=== PATIENT | female | born 1950 | race Caucasian/White ===

== ENCOUNTER 2017-08-28 23:58 | Emergency (ER) | payer MEDICARE, MEDICAID ==
[2017-08-29] MEDS ORDERED: traMADol 50 MG Tab PO ONE (00:14)
--- NOTE | 2017-08-29 00:16 | EDM.PDOC ---
ED HPI GENERAL MEDICAL PROBLEM - General Chief Complaint: Lower Extremity Injury/Pain Stated Complaint: RT LEG PAIN Time Seen by Provider: 08/29/17 00:00 Source of Information: Reports: Patient, Family History Limitations: Reports: No Limitations - History of Present Illness INITIAL COMMENTS - FREE TEXT/NARRATIVE: 66 y.o.w.f with multiple medical issues, came to the ed due to pain, swelling of her left knee and lower leg. Pt denied trauma, fever and chills. However, she has severe pain at her left lower leg. No N/V/D or dizziness. Pt feel the pain is worse at her left ant knee when she tries to extend her left knee. She had her left knee replaced 2005. Pt denied any other acute medical issues. BP 205/70 pulse 73 RR 18 Pulse ox 97% temp 46.7 Onset Date: 08/27/17 Onset Time: 07:00 Duration: Day(s):, Getting Worse Location: Reports: Lower Extremity, Left Quality: Reports: Burning, Dull, Same as Previous Episode Severity: Moderate Improves with: Reports: Rest Context: Reports: Other (H/O cellulitis) Associated Symptoms: Reports: No Other Symptoms Right Lower Leg Pain Score (Numeric/FACES): 9 - Related Data Allergies Allergy/AdvReac Type Severity Reaction Status Date / Time adhesive Allergy Severe Hives Verified 08/29/17 00:08 diclofenac sodium Allergy Severe Hives Verified 08/29/17 00:08 [From Voltaren] morphine Allergy Severe Hives Verified 08/29/17 00:08 Penicillins Allergy Severe Hives Verified 08/29/17 00:08 latex Allergy Unknown UNKNOWN Verified 08/29/17 00:08 Home Meds: Home Meds Allopurinol [Zyloprim] 150 mg PO DAILY 05/09/13 [History] Cholecalciferol (Vitamin D3) [Vitamin D3] 1,000 unit PO 1800 05/09/13 [History] Clopidogrel [Plavix] 75 mg PO 1800 05/09/13 [History] Insulin Detemir [Levemir Flexpen] 42 unit SQ BEDTIME 05/09/13 [History] metFORMIN [Glucophage] 1,000 mg PO 10,18 05/09/13 [History] Nitroglycerin [Nitrostat] 0.4 mg PO ASDIRECTED PRN 01/10/15 [History] Rivaroxaban [Xarelto] 20 mg PO 1800 01/10/15 [History] Ezetimibe [Zetia] 10 mg PO 1800 01/11/15 [History] atorvaSTATin [Lipitor] 40 mg PO 1000 01/11/15 [History] Multivitamin [Daily Multiple Vitamin] 1 tab PO DAILY 02/24/15 [History] Ferrous Sulfate 325 mg PO BIDMEALS 06/14/15 [History] Sertraline [Zoloft] 50 mg BEDTIME 06/14/15 [History] Acetaminophen/HYDROcodone [[place] 325-7.5 MG] 1 tab PO BID PRN #30 tablet [Rx] Amiodarone [Cordarone] 100 mg PO DAILY #90 tablet 01/30/16 [Rx] Ascorbic Acid [Vitamin C] 500 mg PO BID tablet 01/30/16 [Rx] Benazepril [Lotensin] 40 mg PO BID #60 tablet 01/30/16 [Rx] Cefadroxil [Duricef] 500 mg PO BID #60 cap 01/30/16 [Rx] Insulin Aspart [NovoLOG] 12 unit SUBCUT TIDMEALS pen 01/30/16 [Rx] Methadone 2.5 mg PO BEDTIME #30 tablet 01/30/16 [Rx] Metoprolol Succinate [Toprol XL] 75 mg PO DAILY #60 tab.er 01/30/16 [Rx] Cephalexin [Keflex] 500 mg PO Q6H #40 cap 08/29/17 [Rx] traMADol [Ultram] 50 mg PO Q4H PRN #20 tab 08/29/17 [Rx] Past Medical History Cardiovascular History: Reports: Afib, Blood Clots/VTE/DVT, CAD, Cardiomyopathy , Heart Failure, Heart Murmur, High Cholesterol, Hypertension, NC, PTCA, SOB on Exertion, Stents Other Cardiovascular History: Electrocardioversion 05/26/14 and 07/05/14 Respiratory History: Reports: Other (See Below) Other Respiratory History: severe restrictive lung disease-11/19/15 with FVC 1.46L, 42% predicted. FEV1 1.16L, 45% predicted. Ratio 82. Genitourinary History: Reports: Renal Disease Musculoskeletal History: Reports: Arthritis, Back Pain, Chronic, Gout, Other ( See Below) Other Musculoskeletal History: Arthritis in hands & knees. Is hoping to have R knee replaced this year. Psychiatric History: Reports: Anxiety, Depression Endocrine/Metabolic History: Reports: Diabetes, Type II, IDDM, Obesity/BMI 30+ Hematologic History: Reports: Anticoagulation Therapy, Blood Transfusion(s), Iron Deficiency Oncologic (Cancer) History: Reports: Leukemia, Non-Hodgkin's Lymphoma Dermatologic History: Reports: Cellulitis, Other (See Below) Other Dermatologic History: has ecchymotic area inner aspect L lower leg - Infectious Disease History Infectious Disease History: Reports: Chicken Pox, Measles, Mumps - Past Surgical History HEENT Surgical History: Reports: Tonsillectomy Cardiovascular Surgical History: Reports: Coronary Artery Stent, Percutaneous Transluminal Angioplasty GI Surgical History: Reports: Colonoscopy Musculoskeletal Surgical History: Reports: Knee Replacement Oncologic Surgical History: Reports: Bone Marrow Aspiration Social & Family History - Family History Cardiac: Reports: Other (See Below) Other Cardiac Family History: heart problems - Tobacco Use Smoking Status *Q: Former Smoker Years of Tobacco use: 2 Packs/Tins Daily: 0.5 Used Tobacco, but Quit: Yes Month/Year Tobacco Last Used: January Second Hand Smoke Exposure: No - Recreational Drug Use Recreational Drug Use: No - Living Situation & Occupation Living situation: Reports: , Alone Occupation: Disabled Review of Systems - Review of Systems Review Of Systems: See Below Constitutional: Reports: No Symptoms Eyes: Reports: No Symptoms Ears: Reports: No Symptoms Nose: Reports: No Symptoms Mouth/Throat: Reports: No Symptoms Respiratory: Reports: No Symptoms Cardiovascular: Reports: No Symptoms GI/Abdominal: Reports: No Symptoms Genitourinary: Reports: No Symptoms Musculoskeletal: Reports: Joint Pain (left knee/lower leg), Muscle Pain Skin: Reports: Erythema Neurological: Reports: No Symptoms Psychiatric: Reports: No Symptoms ED EXAM, GENERAL - Physical Exam Exam: See Below Exam Limited By: No Limitations General Appearance: Alert, WD/WN, Mild Distress, Obese (morbid ) Eye Exam: Bilateral Eye: Normal Inspection Ears: Normal External Exam Ear Exam: Bilateral Ear: Auricle Normal Nose: Normal Inspection, Normal Mucosa Throat/Mouth: Normal Inspection, Normal Lips Head: Atraumatic, Normocephalic Neck: Normal Inspection, Supple, Non-Tender Respiratory/Chest: No Respiratory Distress, Lungs Clear, Normal Breath Sounds, Chest Non-Tender Cardiovascular: Normal Peripheral Pulses, Regular Rate, Rhythm, No Edema Peripheral Pulses: 1+: Brachial (R) GI/Abdominal: Normal Bowel Sounds (Female) Exam: Deferred Rectal (Female) Exam: Deferred Back Exam: Normal Inspection, Full Range of Motion Extremities: Pedal Edema, Joint Swelling, Ivanna's Sign, Leg Pain (left lower leg ), Increased Warmth Neurological: Alert, Oriented, CN II-XII Intact, Normal Cognition, Abnormal Gait (in the wheel chair) Psychiatric: Normal Affect, Normal Mood Skin Exam: Warm, Dry, Intact Lymphatic: No Adenopathy Course - Vital Signs Text/Narrative:: 66 y.o.w.f with multiple medical issues, came to the ed due to pain, swelling of her left knee and lower leg. Pt denied trauma, fever and chills. However, she has severe pain at her left lower leg. No N/V/D or dizziness. Pt feel the pain is worse at her left ant knee when she tries to extend her left knee. She had her left knee replaced 2005. Pt denied any other acute medical issues. BP 205/70 pulse 73 RR 18 Pulse ox 97% temp 46.7 PE: 66 y.o.w.f with HTN and left knee/leg pain and swelling imaging: US: neg for DVT, pos for cellulitis XRay left knee: Now acute change Labs: WBC Nl Na K nl Lactic acid 2.0 Impression: Left knee pain; left leg cellulitis, poss left left leg lymphedema Tx: Ice, Ultram, Keflex Reexam: improved Plan: D/C with instructions Last Recorded V/S: Last Vital Signs Temp 36.4 C 08/29/17 00:22 Pulse 65 08/29/17 02:35 Resp 18 08/29/17 00:22 BP 188/65 H 08/29/17 02:35 Pulse Ox 98 08/29/17 00:22 - Orders/Labs/Meds Orders: Active Orders 24 hr Category Date Time Status Knee 1V or 2V Lt [CR] Stat Exams 08/29/17 00:12 Taken VL Duplex Lwr Ext Veins Ltd Lt [US] Stat Exams 08/29/17 00:12 Taken CULTURE BLOOD [BC] Urgent Lab 08/29/17 01:45 Received CULTURE BLOOD [BC] Urgent Lab 08/29/17 01:52 Received Blood Culture x2 Reflex Set [OM.PC] Urgent Oth 08/29/17 01:38 Ordered Labs: Laboratory Tests 08/29/17 08/29/17 08/29/17 Range/Units 01:45 01:45 01:45 WBC 8.7 (4.5-12.0) X10-3/uL RBC 5.06 (3.23-5.20) x10(6)uL Hgb 12.6 (11.5-15.5) g/dL Hct 40.1 (30.0-51.3) % MCV 79.3 L (80-96) fL MCH 25.0 L (27.7-33.6) pg MCHC 31.5 L (32.2-35.4) g/dL RDW 15.0 (11.5-15.5) % Plt Count 336 (125-369) X10(3)uL MPV 7.8 (7.4-10.4) fL Add Manual Diff Yes Neutrophils % (Manual) 70 (46-82) % Lymphocytes % (Manual) 14 (13-37) % Monocytes % (Manual) 10 (4-12) % Eosinophils % (Manual) 5 (0-5) % Basophils % (Manual) 1 (0-2) % Sodium 141 (135-145) mmol/L Potassium 3.8 (3.5-5.3) mmol/L Chloride 103 (100-110) mmol/L Carbon Dioxide 28 (21-32) mmol/L BUN 10 (7-18) mg/dL Creatinine 0.8 (0.55-1.02) mg/dL Est Cr Clr Drug Dosing 59.73 mL/min Estimated GFR (MDRD) > 60 (>60) BUN/Creatinine Ratio 12.5 (9-20) Glucose 191 H (80-116) mg/dL Lactic Acid 2.0 (0.4-2.2) mmol/L Calcium 9.1 (8.6-10.2) mg/dL Meds: Medications Discontinued Medications Generic Name Dose Route Start Last Admin Trade Name Dutchq PRN Reason Stop Dose Admin Cephalexin 500 mg 08/29/17 02:21 08/29/17 02:27 Keflex PO 08/29/17 02:22 500 mg ONETIME ONE Administration Clonidine HCl 0.1 mg 08/29/17 01:42 08/29/17 01:45 Catapres PO 08/29/17 01:43 0.1 mg ONETIME ONE Administration Tramadol HCl 100 mg 08/29/17 00:14 08/29/17 01:29 Ultram PO 08/29/17 00:15 100 mg ONETIME ONE Administration Departure - Departure Time of Disposition: 02:22 Disposition: Home, Self-Care 01 Condition: Good Clinical Impression: Cellulitis Qualifiers: Site of cellulitis of extremity: lower extremity Laterality: left - Discharge Information Prescriptions: Cephalexin [Keflex] 500 mg PO Q6H #40 cap traMADol [Ultram] 50 mg PO Q4H PRN #20 tab PRN Reason: severe pain Referrals: Gianni Bowen MD [Primary Care Provider] - Forms: ED Department Discharge Additional Instructions: rest, ice and elevation, Keflex as recommended, please f/u with your PMD in 2 days, please come back to the ed if your symptoms get worse acutely. - My Orders Last 24 Hours: My Active Orders 08/29/17 00:12 Knee 1V or 2V Lt [CR] Stat VL Duplex Lwr Ext Veins Ltd Lt [US] Stat 08/29/17 01:38 Blood Culture x2 Reflex Set [OM.PC] Urgent 08/29/17 01:45 CULTURE BLOOD [BC] Urgent 08/29/17 01:52 CULTURE BLOOD [BC] Urgent - Assessment/Plan Last 24 Hours: My Active Orders 08/29/17 00:12 Knee 1V or 2V Lt [CR] Stat VL Duplex Lwr Ext Veins Ltd Lt [US] Stat 08/29/17 01:38 Blood Culture x2 Reflex Set [OM.PC] Urgent 08/29/17 01:45 CULTURE BLOOD [BC] Urgent 08/29/17 01:52 CULTURE BLOOD [BC] Urgent
[2017-08-29] MEDS ORDERED: cloNIDine 0.1 MG Tab PO ONE (01:42)
[2017-08-29] MEDS ORDERED: Cephalexin 500 MG Cap PO ONE (02:21)
[2017-08-29 02:36] VITALS: BP 188/65
--- NOTE | 2017-08-31 09:28 | CR ---
INDICATION: Left knee pain. LEFT KNEE: Three images of the left knee in frontal and lateral projections revealed evidence of a total knee arthroplasty, which appears to be in good position and alignment, without a definite complicating process. No acute bone or joint abnormality was identified. Incidentally noted were calcifications in the arteries posteriorly. MTDD
--- NOTE | 2017-08-31 10:36 | US ---
INDICATION: Swelling left calf, question DVT. DUPLEX ULTRASOUND, LEFT LOWER EXTREMITY VEINS: Utilizing 2-D real time, duplex Doppler spectral analysis, and color flow imaging, examination of the left lower extremity veins revealed no evidence of deep venous thrombosis or obstruction. Compression views showed no abnormal lack of compression to suggest thrombosis. The patient was unable to cooperate for valvular competence evaluation. Examination was difficult due to patient body habitus and a degree of swelling. Interstitial edema is noted at the level of the calf and popliteal fossa. The anterior tibial vein was visualized in the proximal portion of the calf only. Greater saphenous vein was visualized to the knee. IMPRESSION: 1. No evidence of deep venous thrombosis. 2. Valvular competence was not evaluated. 3. Interstitial edema is noted, popliteal through calf area. 4. The study is somewhat limited due to patient body habitus. MTDD
== END 2017-08-29 02:35 | disposition home or self-care (01) ==
LOC: FB.ED 23:58
DX: L03.116 Cellulitis of left lower limb (principal); M25.562 Pain in left knee; I11.0 Hypertensive heart disease with heart failure; I50.9 Heart failure, unspecified; E78.00 Pure hypercholesterolemia, unspecified; F41.9 Anxiety disorder, unspecified; F32.9 Major depressive disorder, single episode, unspecified; E66.9 Obesity, unspecified; E11.9 Type 2 diabetes mellitus without complications; Z87.891 Personal history of nicotine dependence; Z91.048 Other nonmedicinal substance allergy status; Z88.5 Allergy status to narcotic agent; Z91.040 Latex allergy status; Z79.899 Other long term (current) drug therapy; Z79.4 Long term (current) use of insulin
CPT/HCPCS: 36415; 73560-LT; 80048; 83605; 85025; 87040; 93971-LT; 99283; 99284; A9270-GY

== ENCOUNTER 2017-09-02 08:11 | Emergency (ER) | payer MEDICARE, MEDICAID ==
[2017-09-02] MEDS ORDERED: Ketorolac 30 MG/ML SDV IM STA (09:43)
[2017-09-02] MEDS ORDERED: Acetaminophen/oxyCODONE 325-5 MG Tab PO ONE (10:20)
--- NOTE | 2017-09-02 10:57 | EDM.PDOC ---
ED HPI GENERAL MEDICAL PROBLEM - General Chief Complaint: Upper Extremity Injury/Pain Stated Complaint: ARM PAIN HEAD ACHE Time Seen by Provider: 09/02/17 08:11 Source of Information: Reports: Patient, Family History Limitations: Reports: Physical Impairment - History of Present Illness INITIAL COMMENTS - FREE TEXT/NARRATIVE: 66 years old w f came with her daughter in law due to pain in all he joints including neck. Pt lives by herself and has little connection with the outside world. She she bearly gets around by herself and needs a lot of help from her daughter in law, who "can not take it anymore" No other acute medical issues. BP 180/100 Pulse 87 O2 92 % on on RA. Temp 37.1 Onset Date: 08/19/17 Onset Time: 09:00 Duration: Intermittent Location: Reports: Generalized Quality: Reports: Dull Severity: Mild Improves with: Reports: None Worsens with: Reports: None Context: Reports: Other (lives by herself, has nonspecific complains) Treatments DISABILITY LIAISON OFFICER: Reports: Acetaminophen Bilateral Upper Arm Pain Score (Numeric/FACES): 9 - Related Data Allergies Allergy/AdvReac Type Severity Reaction Status Date / Time adhesive Allergy Severe Hives Verified 09/02/17 08:38 diclofenac sodium Allergy Severe Hives Verified 09/02/17 08:38 [From Voltaren] morphine Allergy Severe Hives Verified 09/02/17 08:38 Penicillins Allergy Severe Hives Verified 09/02/17 08:38 latex Allergy Unknown UNKNOWN Verified 09/02/17 08:38 Home Meds: Home Meds Allopurinol [Zyloprim] 150 mg PO DAILY 05/09/13 [History] Cholecalciferol (Vitamin D3) [Vitamin D3] 1,000 unit PO 1800 05/09/13 [History] Clopidogrel [Plavix] 75 mg PO 1800 05/09/13 [History] Insulin Detemir [Levemir Flexpen] 42 unit SQ BEDTIME 05/09/13 [History] metFORMIN [Glucophage] 1,000 mg PO 05/09/13 [History] Nitroglycerin [Nitrostat] 0.4 mg PO ASDIRECTED PRN 01/10/15 [History] Rivaroxaban [Xarelto] 20 mg PO 1800 01/10/15 [History] Ezetimibe [Zetia] 10 mg PO 1800 01/11/15 [History] atorvaSTATin [Lipitor] 40 mg PO 1000 01/11/15 [History] Multivitamin [Daily Multiple Vitamin] 1 tab PO DAILY 02/24/15 [History] Ferrous Sulfate 325 mg PO BIDMEALS 06/14/15 [History] Sertraline [Zoloft] 50 mg BEDTIME 06/14/15 [History] Acetaminophen/HYDROcodone [[place] 325-7.5 MG] 1 tab PO BID PRN #30 tablet [Rx] Amiodarone [Cordarone] 100 mg PO DAILY #90 tablet 01/30/16 [Rx] Ascorbic Acid [Vitamin C] 500 mg PO BID tablet 01/30/16 [Rx] Benazepril [Lotensin] 40 mg PO BID #60 tablet 01/30/16 [Rx] Cefadroxil [Duricef] 500 mg PO BID #60 cap 01/30/16 [Rx] Insulin Aspart [NovoLOG] 12 unit SUBCUT TIDMEALS pen 01/30/16 [Rx] Methadone 2.5 mg PO BEDTIME #30 tablet 01/30/16 [Rx] Metoprolol Succinate [Toprol XL] 75 mg PO DAILY #60 tab.er 01/30/16 [Rx] Cephalexin [Keflex] 500 mg PO Q6H #40 cap 08/29/17 [Rx] traMADol [Ultram] 50 mg PO Q4H PRN #20 tab 08/29/17 [Rx] oxyCODONE HCl/Acetaminophen [Percocet 2.5-325 MG] 1 tab PO Q4H PRN #4 tablet [Rx] oxyCODONE HCl/Acetaminophen [Percocet 5-325 mg Tablet] 1 each PO Q6HR PRN #4 tablet 09/02/17 [Rx] Past Medical History Cardiovascular History: Reports: Afib, Blood Clots/VTE/DVT, CAD, Cardiomyopathy , Heart Failure, Heart Murmur, High Cholesterol, Hypertension, NM, PTCA, SOB on Exertion, Stents Other Cardiovascular History: Electrocardioversion 05/26/14 and 07/05/14 Respiratory History: Reports: Other (See Below) Other Respiratory History: severe restrictive lung disease-11/19/15 with FVC 1.46L, 42% predicted. FEV1 1.16L, 45% predicted. Ratio 82. Genitourinary History: Reports: Renal Disease Musculoskeletal History: Reports: Arthritis, Back Pain, Chronic, Gout, Other ( See Below) Other Musculoskeletal History: Arthritis in hands & knees. Is hoping to have R knee replaced this year. Psychiatric History: Reports: Anxiety, Depression Endocrine/Metabolic History: Reports: Diabetes, Type II, IDDM, Obesity/BMI 30+ Hematologic History: Reports: Anticoagulation Therapy, Blood Transfusion(s), Iron Deficiency Oncologic (Cancer) History: Reports: Leukemia, Non-Hodgkin's Lymphoma Dermatologic History: Reports: Cellulitis, Other (See Below) Other Dermatologic History: has ecchymotic area inner aspect L lower leg - Infectious Disease History Infectious Disease History: Reports: Chicken Pox, Measles, Mumps - Past Surgical History HEENT Surgical History: Reports: Tonsillectomy Cardiovascular Surgical History: Reports: Coronary Artery Stent, Percutaneous Transluminal Angioplasty GI Surgical History: Reports: Colonoscopy Musculoskeletal Surgical History: Reports: Knee Replacement Oncologic Surgical History: Reports: Bone Marrow Aspiration Social & Family History - Family History Cardiac: Reports: Other (See Below) Other Cardiac Family History: heart problems - Tobacco Use Smoking Status *Q: Former Smoker Years of Tobacco use: 2 Packs/Tins Daily: 0.5 Used Tobacco, but Quit: No Month/Year Tobacco Last Used: January Second Hand Smoke Exposure: No - Caffeine Use Caffeine Use: Reports: Coffee - Recreational Drug Use Recreational Drug Use: No - Living Situation & Occupation Living situation: Reports: , Alone Occupation: Disabled Review of Systems - Review of Systems Review Of Systems: Unable To Obtain (poor historian, depressed) ED EXAM, GENERAL - Physical Exam Exam: See Below Exam Limited By: No Limitations General Appearance: Alert, WD/WN, No Apparent Distress Eye Exam: Bilateral Eye: EOMI, Normal Inspection Ears: Normal External Exam, Normal Canal Ear Exam: Bilateral Ear: Auricle Normal Nose: Normal Inspection, Normal Mucosa Throat/Mouth: Normal Inspection, Normal Lips Head: Atraumatic, Normocephalic Neck: Normal Inspection, Supple, Non-Tender Respiratory/Chest: No Respiratory Distress, Lungs Clear, Normal Breath Sounds, No Accessory Muscle Use, Chest Non-Tender Cardiovascular: Normal Peripheral Pulses, Regular Rate, Rhythm, No Edema Peripheral Pulses: 1+: Brachial (L) GI/Abdominal: Normal Bowel Sounds (Female) Exam: Deferred Rectal (Female) Exam: Deferred Back Exam: Normal Inspection, Full Range of Motion Extremities: Normal Inspection, Normal Range of Motion, Other (pt says, all her joints hurt with movement) Neurological: Alert, Oriented, CN II-XII Intact, Normal Cognition, Abnormal Gait (says she can not walk, however, she walked at home as she came to the ed) Psychiatric: Normal Affect Skin Exam: Warm, Dry, Intact, Normal Color, No Rash Lymphatic: No Adenopathy Course - Vital Signs Text/Narrative:: 66 years old w f came with her daughter in law due to pain in all he joints including neck. Pt lives by herself and has little connection with the outside world. She she bearly gets around by herself and needs a lot of help from her daughter in law, who "can not take it anymore" No other acute medical issues. BP 180/100 Pulse 87 O2 92 % on on RA. Temp 37.1 PE: WNWD depressed appearing 69 y.o.w with a nonspecific HPT who did not take her BP meds this morning. Labs WNL, ESR 36 Imaging: Not indicated Impression: Nonspecific medical issues, Lonely/depressed Consultation: box worker: Gave phonenumbers and addresses to f/u Tx: Toradol, Pt will take her BP as soon she gets home 10.23 am Consultation: Dr. Ugarte: Set up HOMEheath with marriage and family social worker, give a few percocet for severe p0ain, f/u with the PMD Reexam: improved, Pain wentto 08/15 Plan: D/C with instructions Last Recorded V/S: Last Vital Signs Temp 36.6 C 09/02/17 08:11 Pulse 72 09/02/17 11:15 Resp 20 09/02/17 08:11 BP 152/58 H 09/02/17 11:15 Pulse Ox 95 09/02/17 11:00 - Orders/Labs/Meds Labs: Laboratory Tests 09/02/17 09/02/17 Range/Units 08:42 08:42 WBC 9.6 (4.5-12.0) X10-3/uL RBC 4.90 (3.23-5.20) x10(6)uL Hgb 12.6 (11.5-15.5) g/dL Hct 39.3 (30.0-51.3) % MCV 80.3 (80-96) fL MCH 25.8 L (27.7-33.6) pg MCHC 32.1 L (32.2-35.4) g/dL RDW 14.8 (11.5-15.5) % Plt Count 337 (125-369) X10(3)uL MPV 7.6 (7.4-10.4) fL Neut % (Auto) 81.6 (46-82) % Lymph % (Auto) 9.5 L (13-37) % [place] % (Auto) 6.3 (4-12) % Eos % (Auto) 1 (1.0-5.0) % Baso % (Auto) 1 (0-2) % Neut # (Auto) 7.9 (1.6-8.3) # Lymph # (Auto) 0.9 (0.6-5.0) # [place] # (Auto) 0.6 (0.0-1.3) # Eos # (Auto) 0.1 (0.0-0.8) # Baso # (Auto) 0.1 (0.0-0.2) # ESR 37 H (0-20) mm/hr Sodium 135 (135-145) mmol/L Potassium 3.5 (3.5-5.3) mmol/L Chloride 97 L D (100-110) mmol/L Carbon Dioxide 30 (21-32) mmol/L BUN 10 (7-18) mg/dL Creatinine 0.7 (0.55-1.02) mg/dL Est Cr Clr Drug Dosing 68.27 mL/min Estimated GFR (MDRD) > 60 (>60) BUN/Creatinine Ratio 14.3 (9-20) Glucose 219 H (80-116) mg/dL Calcium 9.0 (8.6-10.2) mg/dL Meds: Medications Discontinued Medications Generic Name Dose Route Start Last Admin Trade Name Freq PRN Reason Stop Dose Admin Ketorolac Tromethamine 30 mg 09/02/17 09:43 09/02/17 09:54 Toradol IM 09/02/17 09:44 30 mg ONETIME STA Administration Metoprolol Succinate 75 mg 09/02/17 11:10 Toprol Xl PO 09/02/17 11:11 ONETIME STA Oxycodone/Acetaminophen 1 tab 09/02/17 10:20 09/02/17 10:24 Percocet 325-5 Mg PO 09/02/17 10:21 1 tab ONETIME ONE Administration Departure - Departure Time of Disposition: 10:53 Disposition: Home, Self-Care 01 Condition: Good Clinical Impression: Generalized joint pain - Discharge Information Prescriptions: oxyCODONE HCl/Acetaminophen [Percocet 5-325 mg Tablet] 1 each PO Q6HR PRN #4 tablet PRN Reason: for severe pain only oxyCODONE HCl/Acetaminophen [Percocet 2.5-325 MG] 1 tab PO Q4H PRN #4 tablet PRN Reason: severe pain only Referrals: Gianni Bowen MD [Primary Care Provider] - Forms: ED Department Discharge Additional Instructions: Please take your current meds, please follow the instructions given by the marriage and family social worker. Please f/u with your PMD as well, came back to the ED if your symptoms get worse acutely
[2017-09-02] MEDS ORDERED: Metoprolol Succinate 100 MG Tab.ER PO STA (11:03)
[2017-09-02] MEDS ORDERED: Metoprolol Succinate 25 MG Tab.ER PO STA (11:10)
[2017-09-02 12:19] VITALS: BP 152/58
== END 2017-09-02 11:45 | disposition home or self-care (01) ==
LOC: FB.ED 08:11
DX: M79.622 Pain in left upper arm (principal); M79.621 Pain in right upper arm; F32.9 Major depressive disorder, single episode, unspecified; I11.0 Hypertensive heart disease with heart failure; I50.9 Heart failure, unspecified; E78.00 Pure hypercholesterolemia, unspecified; E11.9 Type 2 diabetes mellitus without complications; Z91.048 Other nonmedicinal substance allergy status; Z88.5 Allergy status to narcotic agent; Z88.0 Allergy status to penicillin; Z91.040 Latex allergy status; Z88.8 Allergy status to other drugs, medicaments and biological substances; Z79.899 Other long term (current) drug therapy; Z79.4 Long term (current) use of insulin; Z87.891 Personal history of nicotine dependence
CPT/HCPCS: 36415; 80048; 85025; 85651; 96372; 99283; A9270; J1885

== ENCOUNTER 2017-11-20 14:02 | Inpatient (IN) | payer MEDICARE, MEDICAID ==
[2017-11-20] MEDS ORDERED: Sodium Chloride 0.9% 1,000 ML IV SCH (14:30)
--- NOTE | 2017-11-20 14:38 | EDM.PDOC ---
ED HPI GENERAL MEDICAL PROBLEM - General Chief Complaint: Cardiovascular Problem Stated Complaint: CHEST PAIN Time Seen by Provider: 11/20/17 14:15 Source of Information: Reports: Patient History Limitations: Reports: No Limitations - History of Present Illness INITIAL COMMENTS - FREE TEXT/NARRATIVE: Jennifer comes into [facility] with a 5 day hx of precordial chest pains, some dyspnea with wheezing, and issues with elevated BP over the past month. Pain is precordial, with radiation into the arms. Activity that involved walking stooping or bending typically precipitated sxs, which would subside with rest in several minutes. The SOB seems to be gradually progressive, without cough or sputa. Her Type II DM on insulin has been well controlled. Her AF is chronic. - Related Data Allergies Allergy/AdvReac Type Severity Reaction Status Date / Time adhesive Allergy Severe Hives Verified 11/20/17 15:37 diclofenac sodium Allergy Severe Hives Verified 11/20/17 15:37 [From Voltaren] morphine Allergy Severe Hives Verified 11/20/17 15:37 Penicillins Allergy Severe Hives Verified 11/20/17 15:37 latex Allergy Unknown UNKNOWN Verified 11/20/17 15:37 Home Meds: Home Meds Allopurinol [Zyloprim] 150 mg PO DAILY 05/09/13 [History] Cholecalciferol (Vitamin D3) [Vitamin D3] 1,000 unit PO 1800 05/09/13 [History] Clopidogrel [Plavix] 75 mg PO 1800 05/09/13 [History] Insulin Detemir [Levemir Flexpen] 42 unit SQ BEDTIME 05/09/13 [History] metFORMIN [Glucophage] 1,000 mg PO 05/09/13 [History] Nitroglycerin [Nitrostat] 0.4 mg PO ASDIRECTED PRN 01/10/15 [History] Rivaroxaban [Xarelto] 20 mg PO 1800 01/10/15 [History] Ezetimibe [Zetia] 10 mg PO 1800 01/11/15 [History] atorvaSTATin [Lipitor] 40 mg PO 1000 01/11/15 [History] Multivitamin [Daily Multiple Vitamin] 1 tab PO DAILY 02/24/15 [History] Ferrous Sulfate 325 mg PO BIDMEALS 06/14/15 [History] Sertraline [Zoloft] 50 mg BEDTIME 01/07/16 [History] Acetaminophen/HYDROcodone [[place] 325-7.5 MG] 1 tab PO BID PRN #30 tablet [Rx] Amiodarone [Cordarone] 100 mg PO DAILY #90 tablet 01/30/16 [Rx] Ascorbic Acid [Vitamin C] 500 mg PO BID tablet 01/30/16 [Rx] Benazepril [Lotensin] 40 mg PO BID #60 tablet 01/30/16 [Rx] Cefadroxil [Duricef] 500 mg PO BID #60 cap 01/30/16 [Rx] Insulin Aspart [NovoLOG] 12 unit SUBCUT TIDMEALS pen 01/30/16 [Rx] Methadone 2.5 mg PO BEDTIME #30 tablet 01/30/16 [Rx] Metoprolol Succinate [Toprol XL] 75 mg PO DAILY #60 tab.er 01/30/16 [Rx] Cephalexin [Keflex] 500 mg PO Q6H #40 cap 08/29/17 [Rx] traMADol [Ultram] 50 mg PO Q4H PRN #20 tab 08/29/17 [Rx] oxyCODONE HCl/Acetaminophen [Percocet 2.5-325 MG] 1 tab PO Q4H PRN #4 tablet [Rx] oxyCODONE HCl/Acetaminophen [Percocet 5-325 mg Tablet] 1 each PO Q6HR PRN #4 tablet 09/02/17 [Rx] Past Medical History Cardiovascular History: Reports: Afib, Blood Clots/VTE/DVT, CAD, Cardiomyopathy , Heart Failure, Heart Murmur, High Cholesterol, Hypertension, [place], PTCA, SOB on Exertion, Stents Other Cardiovascular History: Electrocardioversion 05/26/14 and 07/05/14 Respiratory History: Reports: Other (See Below) Other Respiratory History: severe restrictive lung disease-11/19/15 with FVC 1.46L, 42% predicted. FEV1 1.16L, 45% predicted. Ratio 82. Genitourinary History: Reports: Renal Disease Musculoskeletal History: Reports: Arthritis, Back Pain, Chronic, Gout, Other ( See Below) Other Musculoskeletal History: Arthritis in hands & knees. Is hoping to have R knee replaced this year. Psychiatric History: Reports: Anxiety, Depression Endocrine/Metabolic History: Reports: Diabetes, Type II, IDDM, Obesity/BMI 30+ Hematologic History: Reports: Anticoagulation Therapy, Blood Transfusion(s), Iron Deficiency Oncologic (Cancer) History: Reports: Leukemia, Non-Hodgkin's Lymphoma Dermatologic History: Reports: Cellulitis, Other (See Below) Other Dermatologic History: has ecchymotic area inner aspect L lower leg - Infectious Disease History Infectious Disease History: Reports: Chicken Pox, Measles, Mumps - Past Surgical History HEENT Surgical History: Reports: Tonsillectomy Cardiovascular Surgical History: Reports: Coronary Artery Stent, Percutaneous Transluminal Angioplasty GI Surgical History: Reports: Colonoscopy Musculoskeletal Surgical History: Reports: Knee Replacement Oncologic Surgical History: Reports: Bone Marrow Aspiration Social & Family History - Family History Cardiac: Reports: Other (See Below) Other Cardiac Family History: heart problems - Caffeine Use Caffeine Use: Reports: Coffee - Living Situation & Occupation Living situation: Reports: , Alone Occupation: Disabled ED ROS GENERAL - Review of Systems Review Of Systems: See Below Constitutional: Reports: Malaise, Fatigue HEENT: Reports: No Symptoms Respiratory: Reports: Shortness of Breath, Wheezing Cardiovascular: Reports: Chest Pain, Blood Pressure Problem, Dyspnea on Exertion , Edema GI/Abdominal: Reports: No Symptoms : Reports: No Symptoms Musculoskeletal: Reports: No Symptoms Skin: Reports: No Symptoms Neurological: Reports: No Symptoms Psychiatric: Reports: No Symptoms Hematologic/Lymphatic: Reports: No Symptoms Immunologic: Reports: No Symptoms ED EXAM, GENERAL - Physical Exam Exam: See Below Exam Limited By: No Limitations General Appearance: Alert, WD/WN, Mild Distress, Obese Eye Exam: Bilateral Eye: EOMI, Normal Inspection, PERRL Ears: Normal External Exam Nose: Normal Inspection Throat/Mouth: Normal Inspection, Normal Oropharynx Head: Normocephalic Neck: Normal Inspection, Supple Respiratory/Chest: Chest Non-Tender, Decreased Breath Sounds, Wheezing, Prolonged Expiration Cardiovascular: No Murmur, Irregularly Irregular GI/Abdominal: Normal Bowel Sounds, Soft, Non-Tender, No Organomegaly, No Distention, No Mass (Female) Exam: Deferred Rectal (Female) Exam: Deferred Back Exam: Normal Inspection Extremities: Normal Range of Motion, Pedal Edema Neurological: Alert, Oriented, CN II-XII Intact, No Motor/Sensory Deficits Psychiatric: Normal Affect, Normal Mood Skin Exam: Warm, Dry, Intact, Normal Color Lymphatic: No Adenopathy Course - Vital Signs Text/Narrative:: Following assessment at the [facility], a 12 lead ekg noted AF with normal VR. Admission BP 178/98, VR 88, RR 22 T 98 deg F. An Iv was inserted into the LUE, and a Tridil drip was started for BP and chest pain management. Subsequent studies noted chest x ray with cardiomegaly and bilateral interstitial fluid consistent with CHF. CBC and CMP were baseline, Troponin I <0.017, BNP 2281. Case was discussed with hospitalist, and she will be admitted to the ICU. Last Recorded V/S: Last Vital Signs Temp Pulse Resp BP 182/83 H 11/20/17 15:01 Pulse Ox - Orders/Labs/Meds Orders: Active Orders 24 hr Category Date Time Status Patient Status Manage Transfer [TRANSFER] Routine ADT 11/20/17 15:48 Ordered EKG Documentation Completion [RC] ASDIRECTED Care 11/20/17 14:26 Active Nitroglycerin/D5W [Nitroglycerin 25 MG/D5W 250 ML] Med 11/20/17 14:30 Active 25 mg in 250 ml IV TITRATE Sodium Chloride 0.9% [Normal Saline] 1,000 ml Med 11/20/17 14:30 Active IV ASDIRECTED Sodium Chloride 0.9% [Saline Flush] Med 11/20/17 14:25 Active 10 ml FLUSH ASDIRECTED PRN Peripheral IV Insertion Adult [OM.PC] Routine Oth 11/20/17 14:25 Ordered EKG 12 Lead [EK] Routine Ther 11/20/17 14:25 Ordered Medication Orders Nitroglycerin/Dextrose (Nitroglycerin 25 Mg/D5w 250 Ml) 25 mg in 250 mls @ 6 mls/hr IV TITRATE ALAN; Protocol Last Titration: 11/20/17 15:40 Dose: 10 mcg/min, 6 mls/hr Admin: 11/20/17 15:01 Dose: 5 mcg/min, 3 mls/hr Sodium Chloride (Normal Saline) 1,000 mls @ 75 mls/hr IV ASDIRECTED ALAN Last Infusion: 11/20/17 15:41 Dose: 35 mls/hr Admin: 11/20/17 15:26 Dose: 75 mls/hr Sodium Chloride (Saline Flush) 10 ml FLUSH ASDIRECTED PRN PRN Reason: Keep Vein Open Last Admin: 11/20/17 15:25 Dose: 10 ml Labs: Laboratory Tests 11/20/17 11/20/17 11/20/17 Range/Units 14:45 14:45 14:45 WBC 7.3 (4.5-12.0) X10-3/uL RBC 4.53 (3.23-5.20) x10(6)uL Hgb 11.7 (11.5-15.5) g/dL Hct 36.9 (30.0-51.3) % MCV 81.3 (80-96) fL MCH 25.9 L (27.7-33.6) pg MCHC 31.9 L (32.2-35.4) g/dL RDW 16.2 H (11.5-15.5) % Plt Count 271 (125-369) X10(3)uL MPV 7.7 (7.4-10.4) fL Neut % (Auto) 78.0 (46-82) % Lymph % (Auto) 12.6 L (13-37) % [place] % (Auto) 4.6 (4-12) % Eos % (Auto) 4 (1.0-5.0) % Baso % (Auto) 1 (0-2) % Neut # (Auto) 5.7 (1.6-8.3) # Lymph # (Auto) 0.9 (0.6-5.0) # [place] # (Auto) 0.3 (0.0-1.3) # Eos # (Auto) 0.3 (0.0-0.8) # Baso # (Auto) 0.1 (0.0-0.2) # Sodium 141 (135-145) mmol/L Potassium 4.2 (3.5-5.3) mmol/L Chloride 103 D (100-110) mmol/L Carbon Dioxide 27 (21-32) mmol/L BUN 10 (7-18) mg/dL Creatinine 0.8 (0.55-1.02) mg/dL Est Cr Clr Drug Dosing TNP Estimated GFR (MDRD) > 60 (>60) BUN/Creatinine Ratio 12.5 (9-20) Glucose 139 H D (80-116) mg/dL Calcium 9.1 (8.6-10.2) mg/dL Total Bilirubin 0.6 (0.1-1.3) mg/dL AST 18 (5-25) IU/L ALT 23 (12-36) U/L Alkaline Phosphatase 104 (56-112) IU/L Troponin I < 0.017 L (<0.017-0.056) ng/mL NT-Pro-B Natriuret Pep (<=125) pg/mL Total Protein 7.4 (6.0-8.0) g/dL Albumin 3.9 (3.2-4.6) g/dL Globulin 3.5 g/dL Albumin/Globulin Ratio 1.1 / Range/Units 14:45 WBC (4.5-12.0) X10-3/uL RBC (3.23-5.20) x10(6)uL Hgb (11.5-15.5) g/dL Hct (30.0-51.3) % MCV (80-96) fL MCH (27.7-33.6) pg MCHC (32.2-35.4) g/dL RDW (11.5-15.5) % Plt Count (125-369) X10(3)uL MPV (7.4-10.4) fL Neut % (Auto) (46-82) % Lymph % (Auto) (13-37) % [place] % (Auto) (4-12) % Eos % (Auto) (1.0-5.0) % Baso % (Auto) (0-2) % Neut # (Auto) (1.6-8.3) # Lymph # (Auto) (0.6-5.0) # [place]ws[place] # (Auto) (0.0-1.3) # Eos # (Auto) (0.0-0.8) # Baso # (Auto) (0.0-0.2) # Sodium (135-145) mmol/L Potassium (3.5-5.3) mmol/L Chloride (100-110) mmol/L Carbon Dioxide (21-32) mmol/L BUN (7-18) mg/dL Creatinine (0.55-1.02) mg/dL Est Cr Clr Drug Dosing Estimated GFR (MDRD) (>60) BUN/Creatinine Ratio (9-20) Glucose (80-116) mg/dL Calcium (8.6-10.2) mg/dL Total Bilirubin (0.1-1.3) mg/dL AST (5-25) IU/L ALT (12-36) U/L Alkaline Phosphatase (56-112) IU/L Troponin I (<0.017-0.056) ng/mL NT-Pro-B Natriuret Pep 2281 H* (<=125) pg/mL Total Protein (6.0-8.0) g/dL Albumin (3.2-4.6) g/dL Globulin g/dL Albumin/Globulin Ratio Meds: Medications Generic Name Dose Route Start Last Admin Trade Name Freq PRN Reason Stop Dose Admin Nitroglycerin/Dextrose 25 mg in 250 mls @ 6 mls/hr 11/20/17 14:30 11/20/17 15 :40 Nitroglycerin 25 Mg/D5w 250 Ml IV 10 mcg/min TITRATE ALAN 6 mls/hr Titration Protocol 10 MCG/MIN Sodium Chloride 1,000 mls @ 75 mls/hr 11/20/17 14:30 11/20/17 15:41 Normal Saline IV 35 mls/hr ASDIRECTED ALAN Infusion Sodium Chloride 10 ml 11/20/17 14:25 11/20/17 15:25 Saline Flush FLUSH 10 ml ASDIRECTED PRN Administration Keep Vein Open Discontinued Medications Generic Name Dose Route Start Last Admin Trade Name Freq PRN Reason Stop Dose Admin Furosemide 40 mg 11/20/17 15:38 Lasix IVPUSH 11/20/17 15:39 NOW ONE Departure - Departure Time of Disposition: 15:54 Disposition: Admitted As Inpatient 66 Condition: Fair Clinical Impression: Hypertension with heart disease Acute exacerbation of CHF (congestive heart failure) Qualifiers: Heart failure type: systolic Qualified Code(s): I50.23 - Acute on chronic systolic (congestive) heart failure Referrals: Jeremiah Rincon MD [Primary Care Provider] - Forms: ED Department Discharge - Problem List & Annotations (1) Acute exacerbation of CHF (congestive heart failure) SNOMED Code(s): 70049800 Code(s): I50.9 - HEART FAILURE, UNSPECIFIED Status: Acute Priority: High Current Visit: Yes Annotation/Comment:: Admit to ICU Qualifiers: Heart failure type: systolic Qualified Code(s): I50.23 - Acute on chronic systolic (congestive) heart failure (2) Hypertension with heart disease SNOMED Code(s): 91042483 Code(s): I11.9 - HYPERTENSIVE HEART DISEASE WITHOUT HEART FAILURE Status: Acute Current Visit: Yes Annotation/Comment:: Admit to ICU - Problem List Review Problem List Initiated/Reviewed/Updated: Yes - My Orders Last 24 Hours: My Active Orders 11/20/17 14:25 Sodium Chloride 0.9% [Saline Flush] 10 ml FLUSH ASDIRECTED PRN Peripheral IV Insertion Adult [OM.PC] Routine EKG 12 Lead [EK] Routine 11/20/17 14:26 EKG Documentation Completion [RC] ASDIRECTED 11/20/17 14:30 Nitroglycerin/D5W [Nitroglycerin 25 MG/D5W 250 ML] 25 mg in 250 ml IV TITRATE Sodium Chloride 0.9% [Normal Saline] 1,000 ml IV ASDIRECTED 11/20/17 15:48 Patient Status Manage Transfer [TRANSFER] Routine - Assessment/Plan Last 24 Hours: My Active Orders 11/20/17 14:25 Sodium Chloride 0.9% [Saline Flush] 10 ml FLUSH ASDIRECTED PRN Peripheral IV Insertion Adult [OM.PC] Routine EKG 12 Lead [EK] Routine 11/20/17 14:26 EKG Documentation Completion [RC] ASDIRECTED 11/20/17 14:30 Nitroglycerin/D5W [Nitroglycerin 25 MG/D5W 250 ML] 25 mg in 250 ml IV TITRATE Sodium Chloride 0.9% [Normal Saline] 1,000 ml IV ASDIRECTED 11/20/17 15:48 Patient Status Manage Transfer [TRANSFER] Routine Plan: Follow up with hospitalist.
--- NOTE | 2017-11-20 15:00 | CR ---
INDICATION: Chest pain, short of breath. CHEST: A portable AP upright view of the chest was obtained 11/20/2017 and compared with 01/28/2016 and 02/24/2015. The heart is enlarged. The aorta is tortuous. Pulmonary vasculature is prominent, compatible with CHF. Interstitial markings are prominent, suggesting interstitial lung edema. A definite active infiltrate or effusion was not identified. Overlying EKG leads are noted. The aorta is tortuous and calcified in the arch area. IMPRESSION: ASHD with cardiomegaly, CHF, and interstitial lung edema. MTDD
[2017-11-20] MEDS: Nitroglycerin/D5W 25 MG/250 ML BOTTLE IV SCH (15:01)
[2017-11-20] MEDS: Sodium Chloride 0.9% 10 ML Syringe FLUSH PRN ×3 (15:25→21:25)
[2017-11-20] MEDS ORDERED: Furosemide 40 MG/4 ML VIAL IVPUSH ONE ×2 (15:38→19:56)
[2017-11-20] MEDS ORDERED: Furosemide 40 MG/4 ML VIAL ONE (15:52)
--- NOTE | 2017-11-20 20:07 | PCM.HP ---
H&P History of Present Illness - General Date of Service: 11/20/17 Admit Problem/Dx: Admission Diagnosis/Problem Admission Diagnosis/Problem Congestive heart failure Source of Information: Patient History Limitations: Reports: No Limitations - History of Present Illness Initial Comments - Free Text/Narative: Jennifer is a 66-year-old female was admitted because of shortness of breath sudden onset. She also complained of retrosternal chest pain that radiated randomly to the chest area and arms. The symptoms progressively got worse today, and it is associated with edema of the legs. She has a history of hypertension that has been difficult to control the last month, Losartan was added and doubled up but did not improve her symptoms. She has no headache. She has a history of chronic intermittent afib, on new anticoagulants, coronary artery disease with stents in 2015. She had an echocardiogram in October of this year that showed mild aortic stenosis and mild diastolic dysfunction. This report will be in the hard copy of the chart. She has no fever or systemic symptoms. Has well-controlled type 2 diabetes ,recent A1c 7.7. She also has a history of chronic cellulitis of left lower extremity, currently on oral antibiotics. She noted more redness on that leg yesterday mid chest radiating to both arms Pain Score (Numeric/FACES): 0 - Related Data Allergies/Adverse Reactions: Allergies Allergy/AdvReac Type Severity Reaction Status Date / Time adhesive Allergy Severe Hives Verified 11/20/17 15:37 diclofenac sodium Allergy Severe Hives Verified 11/20/17 15:37 [From Voltaren] morphine Allergy Severe Hives Verified 11/20/17 15:37 Penicillins Allergy Severe Hives Verified 11/20/17 15:37 latex Allergy Unknown UNKNOWN Verified 11/20/17 15:37 Home Medications: Home Meds Allopurinol [Zyloprim] 150 mg PO DAILY 05/09/13 [History] Cholecalciferol (Vitamin D3) [Vitamin D3] 1,000 unit PO 1800 05/09/13 [History] Insulin Detemir [Levemir Flexpen] 42 unit SQ BEDTIME 05/09/13 [History] metFORMIN [Glucophage] 1,000 mg PO 10,18 05/09/13 [History] Nitroglycerin [Nitrostat] 0.4 mg PO ASDIRECTED PRN 01/10/15 [History] Rivaroxaban [Xarelto] 20 mg PO 1800 01/10/15 [History] Ezetimibe [Zetia] 10 mg PO 1800 01/11/15 [History] atorvaSTATin [Lipitor] 40 mg PO 1000 01/11/15 [History] Multivitamin [Daily Multiple Vitamin] 1 tab PO DAILY 02/24/15 [History] Ferrous Sulfate 325 mg PO BIDMEALS 06/14/15 [History] Sertraline [Zoloft] 50 mg PO BEDTIME 06/14/15 [History] Cefadroxil [Duricef] 500 mg PO BID #60 cap 01/30/16 [Rx] Insulin Aspart [NovoLOG] 12 unit SUBCUT TIDMEALS pen 01/30/16 [Rx] Amiodarone HCl [Pacerone] 100 mg PO DAILY 11/20/17 [History] Losartan [Cozaar] 50 mg PO DAILY 11/20/17 [History] Metoprolol Succinate [Toprol XL 50mg] 75 mg PO DAILY 11/20/17 [History] Past Medical History HEENT History: Reports: Impaired Vision Cardiovascular History: Reports: Afib, CAD, Cardiomyopathy, Heart Failure, Heart Murmur, High Cholesterol, Hypertension, [place], PTCA, SOB on Exertion, Stents Other Cardiovascular History: Electrocardioversion 05/26/14 and 07/05/14 Respiratory History: Reports: Other (See Below) Other Respiratory History: severe restrictive lung disease-11/19/15 with FVC 1.46L, 42% predicted. FEV1 1.16L, 45% predicted. Ratio 82. Genitourinary History: Reports: Renal Disease Musculoskeletal History: Reports: Arthritis, Back Pain, Chronic, Gout, Other ( See Below) Other Musculoskeletal History: Arthritis in hands & knees. Is hoping to have R knee replaced this year. Psychiatric History: Reports: Anxiety, Depression Endocrine/Metabolic History: Reports: Diabetes, Type II, IDDM, Obesity/BMI 30+ Hematologic History: Reports: Anticoagulation Therapy, Blood Transfusion(s), Iron Deficiency Oncologic (Cancer) History: Reports: Leukemia, Non-Hodgkin's Lymphoma Dermatologic History: Reports: Cellulitis, Other (See Below) Other Dermatologic History: has ecchymotic area inner aspect L lower leg - Infectious Disease History Infectious Disease History: Reports: Chicken Pox, Measles, Mumps - Past Surgical History HEENT Surgical History: Reports: Tonsillectomy Cardiovascular Surgical History: Reports: Coronary Artery Stent, Percutaneous Transluminal Angioplasty Musculoskeletal Surgical History: Reports: Knee Replacement Oncologic Surgical History: Reports: Bone Marrow Aspiration Other Oncologic Surgeries/Procedures: in remission since 2009 (leukemia), NonHodgkin's lymphoma 30 years ago Social & Family History - Family History Cardiac: Reports: Other (See Below) Other Cardiac Family History: heart problems - Tobacco Use Smoking Status *Q: Never Smoker Second Hand Smoke Exposure: No - Caffeine Use Caffeine Use: Reports: Coffee - Recreational Drug Use Recreational Drug Use: No - Living Situation & Occupation Living situation: Reports: , Alone Occupation: Disabled H&P Review of Systems - Review of Systems: Review Of Systems: ROS reveals no pertinent complaints other than HPI. Exam - Exam Exam: See Below - Vital Signs Vital Signs: Last Vital Signs Temp 97.8 F 11/20/17 17:10 Pulse 83 11/20/17 16:50 Resp 24 H 11/20/17 19:30 BP 139/65 11/20/17 19:30 Pulse Ox 93 L 11/20/17 19:30 Weight: 116.743 kg - Exam Quality Assessment: Supplemental Oxygen General: Moderate Distress HEENT: PERRLA Neck: Supple Lungs: Rales, Rhonchi Cardiovascular: Regular Rhythm, Normal S1, Normal S2. No: Irregular Rhythm, Diastolic Murmur GI/Abdominal Exam: Normal Bowel Sounds, Soft, Non-Tender (Female) Exam: Deferred Rectal (Female) Exam: Deferred Back Exam: Normal Inspection Extremities: Pedal Edema, Increased Warmth (Left), Redness Skin: Warm, Dry, Intact Neurological: Cranial Nerves Intact, Reflexes Equal Bilateral Neuro Extensive - Mental Status: Alert, Oriented x3, Normal Mood/Affect, Normal Cognition Neuro Extensive - Motor, Sensory, Reflexes: CN II-XII Intact, Normal Gait, Normal Reflexes Psychiatric: Alert, Normal Affect, Normal Mood - Patient Data Lab Results Last 24 hrs: Laboratory Results - last 24 hr 11/20/17 11/20/17 11/20/17 Range/Units 14:45 14:45 14:45 WBC 7.3 (4.5-12.0) X10-3/uL RBC 4.53 (3.23-5.20) x10(6)uL Hgb 11.7 (11.5-15.5) g/dL Hct 36.9 (30.0-51.3) % MCV 81.3 (80-96) fL MCH 25.9 L (27.7-33.6) pg MCHC 31.9 L (32.2-35.4) g/dL RDW 16.2 H (11.5-15.5) % Plt Count 271 (125-369) X10(3)uL MPV 7.7 (7.4-10.4) fL Neut % (Auto) 78.0 (46-82) % Lymph % (Auto) 12.6 L (13-37) % [place] % (Auto) 4.6 (4-12) % Eos % (Auto) 4 (1.0-5.0) % Baso % (Auto) 1 (0-2) % Neut # (Auto) 5.7 (1.6-8.3) # Lymph # (Auto) 0.9 (0.6-5.0) # [place] # (Auto) 0.3 (0.0-1.3) # Eos # (Auto) 0.3 (0.0-0.8) # Baso # (Auto) 0.1 (0.0-0.2) # Sodium 141 (135-145) mmol/L Potassium 4.2 (3.5-5.3) mmol/L Chloride 103 D (100-110) mmol/L Carbon Dioxide 27 (21-32) mmol/L BUN 10 (7-18) mg/dL Creatinine 0.8 (0.55-1.02) mg/dL Est Cr Clr Drug Dosing TNP Estimated GFR (MDRD) > 60 (>60) BUN/Creatinine Ratio 12.5 (9-20) Glucose 139 H D (80-116) mg/dL Calcium 9.1 (8.6-10.2) mg/dL Total Bilirubin 0.6 (0.1-1.3) mg/dL AST 18 (5-25) IU/L ALT 23 (12-36) U/L Alkaline Phosphatase 104 (56-112) IU/L Troponin I < 0.017 L (<0.017-0.056) ng/mL NT-Pro-B Natriuret Pep (<=125) pg/mL Total Protein 7.4 (6.0-8.0) g/dL Albumin 3.9 (3.2-4.6) g/dL Globulin 3.5 g/dL Albumin/Globulin Ratio 1.1 / Range/Units 14:45 WBC (4.5-12.0) X10-3/uL RBC (3.23-5.20) x10(6)uL Hgb (11.5-15.5) g/dL Hct (30.0-51.3) % MCV (80-96) fL MCH (27.7-33.6) pg MCHC (32.2-35.4) g/dL RDW (11.5-15.5) % Plt Count (125-369) X10(3)uL MPV (7.4-10.4) fL Neut % (Auto) (46-82) % Lymph % (Auto) (13-37) % [place] % (Auto) (4-12) % Eos % (Auto) (1.0-5.0) % Baso % (Auto) (0-2) % Neut # (Auto) (1.6-8.3) # Lymph # (Auto) (0.6-5.0) # [place] # (Auto) (0.0-1.3) # Eos # (Auto) (0.0-0.8) # Baso # (Auto) (0.0-0.2) # Sodium (135-145) mmol/L Potassium (3.5-5.3) mmol/L Chloride (100-110) mmol/L Carbon Dioxide (21-32) mmol/L BUN (7-18) mg/dL Creatinine (0.55-1.02) mg/dL Est Cr Clr Drug Dosing Estimated GFR (MDRD) (>60) BUN/Creatinine Ratio (9-20) Glucose (80-116) mg/dL Calcium (8.6-10.2) mg/dL Total Bilirubin (0.1-1.3) mg/dL AST (5-25) IU/L ALT (12-36) U/L Alkaline Phosphatase (56-112) IU/L Troponin I (<0.017-0.056) ng/mL NT-Pro-B Natriuret Pep 2281 H* (<=125) pg/mL Total Protein (6.0-8.0) g/dL Albumin (3.2-4.6) g/dL Globulin g/dL Albumin/Globulin Ratio Result Diagrams: 11/20/17 14:45 11/20/17 14:45 Imaging Impressions Last 24 hrs: CXR-chf EKG INTERPRETATION Rhythm: A-Fib - Problem List (1) Acute exacerbation of CHF (congestive heart failure) SNOMED Code(s): 22177121 ICD Code: I50.9 - HEART FAILURE, UNSPECIFIED Status: Acute Priority: High Current Visit: Yes Problem Details: Admit to ICU Qualifiers: Heart failure type: diastolic Qualified Code(s): I50.33 - Acute on chronic diastolic (congestive) heart failure (2) Cellulitis SNOMED Code(s): 166791136 ICD Code: L03.90 - CELLULITIS, UNSPECIFIED Status: Acute Current Visit: No Qualifiers: Site of cellulitis: extremity Site of cellulitis of extremity: lower extremity Laterality: left Qualified Code(s): L03.116 - Cellulitis of left lower limb (3) 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, NYHA class 2 SNOMED Code(s): 01915940, 796096005, 994620917 ICD Code: I10 - ESSENTIAL (PRIMARY) HYPERTENSION; I50.40 - UNSP COMBINED SYSTOLIC AND DIASTOLIC (CONGESTIVE) HRT FAIL Status: Acute Current Visit: No (4) Afib SNOMED Code(s): 63168735 ICD Code: I48.91 - UNSPECIFIED ATRIAL FIBRILLATION Status: Chronic Current Visit: No Problem Details: Stable,on anticoagulation Qualifiers: Atrial fibrillation type: paroxysmal Qualified Code(s): I48.0 - Paroxysmal atrial fibrillation (5) Anxiety SNOMED Code(s): 35493969 ICD Code: F41.9 - ANXIETY DISORDER, UNSPECIFIED Status: Chronic Current Visit: No Problem Details: (6) CAD, multiple vessel SNOMED Code(s): 928940057 ICD Code: I25.10 - ATHSCL HEART DISEASE OF [place] CORONARY ARTERY W/O ANG PCTRS Status: Chronic Current Visit: No (7) Hyperlipidemia associated with type 2 diabetes mellitus SNOMED Code(s): 849837847366, 318652828144 ICD Code: E11.69 - TYPE 2 DIABETES MELLITUS WITH OTHER SPECIFIED COMPLICATION ; E78.5 - HYPERLIPIDEMIA, UNSPECIFIED Status: Chronic Current Visit: No (8) Morbid obesity with BMI of 40.0-44.9, adult SNOMED Code(s): 785227801 ICD Code: E66.01 - MORBID (SEVERE) OBESITY DUE TO EXCESS CALORIES; Z68.41 - BODY MASS INDEX (BMI) 40.0-44.9, ADULT Status: Chronic Current Visit: No Problem List Initiated/Reviewed/Updated: Yes Orders Last 24hrs: Active Orders 24 hr Category Date Time Status Accu Check [Blood Glucose Check, Bedside] [RC] 07,1130, Care 11/20/17 19:05 Active 1730 Consistent Carbohydrate Diet [DIET] Diet 11/21/17 Breakfast Active BASIC METABOLIC PANEL,BMP [CHEM] DAILY Lab 11/21/17 05:11 Ordered BASIC METABOLIC PANEL,BMP [CHEM] DAILY Lab 11/22/17 05:11 Ordered BASIC METABOLIC PANEL,BMP [CHEM] DAILY Lab 11/23/17 05:11 Ordered CBC WITH AUTO DIFF [HEME] AM Lab 11/21/17 05:11 Ordered PRO B-TYPE NATRIUR PEPT,BNPPRO [CHEM] DAILY Lab 11/21/17 05:11 Ordered PRO B-TYPE NATRIUR PEPT,BNPPRO [CHEM] DAILY Lab 11/22/17 05:11 Ordered PRO B-TYPE NATRIUR PEPT,BNPPRO [CHEM] DAILY Lab 11/23/17 05:11 Ordered TROPONIN I [CHEM] AM Lab 11/21/17 05:11 Ordered Amiodarone [Cordarone] Med 11/21/17 09:00 Ordered 100 mg PO DAILY Ezetimibe [Zetia] Med 11/21/17 18:00 Ordered 10 mg PO 1800 Furosemide [Lasix] Med 11/20/17 19:56 Once 40 mg IVPUSH NOW ONE Insulin Aspart [NovoLOG] Med 11/21/17 08:00 Ordered See Protocol SUBCUT TIDMEALS Insulin Detemir [Levemir] Med 11/20/17 21:00 Ordered 42 unit SUBCUT BEDTIME Metoprolol Succinate [Toprol XL] Med 11/20/17 20:15 Ordered 100 mg PO DAILY Multivitamins [Tab-A-Driss] Med 11/21/17 09:00 Ordered 1 tab PO DAILY Nitroglycerin/D5W [Nitroglycerin 25 MG/D5W 250 ML] Med 11/20/17 14:30 Active 25 mg in 250 ml IV TITRATE Rivaroxaban [Xarelto] Med 11/21/17 18:00 Ordered 20 mg PO 1800 Sertraline [Zoloft] Med 11/20/17 21:00 Ordered 50 mg PO BEDTIME Sodium Chloride 0.9% [Normal Saline] 1,000 ml Med 11/20/17 14:30 Active IV ASDIRECTED Sodium Chloride 0.9% [Saline Flush] Med 11/20/17 14:25 Active 10 ml FLUSH ASDIRECTED PRN atorvaSTATin [Lipitor] Med 11/21/17 10:00 Ordered 40 mg PO 1000 cefTRIAXone [Rocephin] Med 11/20/17 20:00 Ordered 1,000 mg IVPUSH Q24H metFORMIN [Glucophage] Med 11/21/17 10:00 Ordered 1,000 mg PO 10,18 Peripheral IV Insertion Adult [OM.PC] Routine Oth 11/20/17 14:25 Ordered EKG 12 Lead [EK] Routine Ther 11/20/17 14:25 Ordered Medication Orders Amiodarone HCl (Cordarone) 100 mg PO DAILY ALAN Atorvastatin Calcium (Lipitor) 40 mg PO 1000 ALAN Ceftriaxone Sodium (Rocephin) 1,000 mg IVPUSH Q24H ALAN Ezetimibe (Zetia) 10 mg PO 1800 ALAN Furosemide (Lasix) 40 mg IVPUSH NOW ONE Stop: 11/20/17 19:57 Nitroglycerin/Dextrose (Nitroglycerin 25 Mg/D5w 250 Ml) 25 mg in 250 mls @ 6 mls/hr IV TITRATE ALAN; Protocol Last Titration: 11/20/17 19:45 Dose: 15 mcg/min, 9 mls/hr Titration: 11/20/17 16:30 Dose: 20 mcg/min, 12 mls/hr Titration: 11/20/17 16:10 Dose: 15 mcg/min, 9 mls/hr Titration: 11/20/17 15:40 Dose: 10 mcg/min, 6 mls/hr Admin: 11/20/17 15:01 Dose: 5 mcg/min, 3 mls/hr Sodium Chloride (Normal Saline) 1,000 mls @ 75 mls/hr IV ASDIRECTED ALAN Last Infusion: 11/20/17 15:41 Dose: 35 mls/hr Infusion: 11/20/17 15:41 Dose: 35 mls/hr Admin: 11/20/17 15:26 Dose: 75 mls/hr Insulin Aspart (Novolog) 0 unit SUBCUT TIDMEALS [facility]; Protocol Insulin Detemir (Levemir) 42 unit SUBCUT BEDTIME [facility] Metformin HCl (Glucophage) 1,000 mg PO 10,18 [facility] Metoprolol Succinate (Toprol Xl) 100 mg PO DAILY [facility] Multivitamins/Minerals/Vitamin C (Tab-A-Driss) 1 tab PO DAILY [facility] Non-Formulary Medication (Rivaroxaban [Xarelto]) 20 mg PO 1800 [facility] Sertraline HCl (Zoloft) 50 mg PO BEDTIME [facility] Sodium Chloride (Saline Flush) 10 ml FLUSH ASDIRECTED PRN PRN Reason: Keep Vein Open Last Admin: 11/20/17 15:25 Dose: 10 ml Assessment/Plan Comment:: Admit patient to ICU, with diagnosis of CHF exacerbation and acute pulmonary edema. I agree with continuation of nitroglycerin drip and Lasix which I'll order 40 mg once tonight. I will repeat an EKG,troponin BNP and basic profile in morning. I opted to start Rocephin 1 g every day for cellulitis of left lower extremity. I resumed her home medications, but increase the dose of metoprolol 100 mg from 75 mg. I discontinued Losartan because of reported side effects but patient.
[2017-11-20] MEDS: cefTRIAXone 1,000 MG VIAL IVPUSH SCH (21:19)
[2017-11-20] MEDS: Metoprolol Succinate 100 MG Tab.ER PO SCH (21:41)
[2017-11-20] MEDS: Sertraline 50 MG Tab PO SCH (21:41)
[2017-11-20] MEDS: Insulin Detemir 100 Units/ML 3 ML Pen SUBCUT SCH (23:42)
--- NOTE | 2017-11-21 08:56 | PCM.PN ---
- General Info Date of Service: 11/21/17 Admission Dx/Problem (Free Text): Admission Diagnosis/Problem Admission Diagnosis/Problem Congestive heart failure Subjective Update: Jennifer feels better this morning but still short of breath and still needs oxygenation. She complains of some itching,at the back of left leg. Denies chest pain nausea, vomiting. She put out over 2L the last 12 hours - Review of Systems General: Reports: No Symptoms HEENT: Reports: No Symptoms Pulmonary: Reports: Shortness of Breath. Denies: Pleuritic Chest Pain Cardiovascular: Denies: Chest Pain Gastrointestinal: Reports: No Symptoms Genitourinary: Reports: No Symptoms - Patient Data Vitals - Most Recent: Last Vital Signs Temp 98.9 F 11/21/17 00:00 Pulse 71 11/21/17 06:00 Resp 20 11/21/17 06:00 BP 134/65 11/21/17 06:00 Pulse Ox 93 L 11/21/17 06:00 Weight - Most Recent: 115.354 kg I&O - Last 24 Hours: Intake & Output 11/20/17 11/21/17 11/21/17 22:59 06:59 14:59 Intake Total 255 324 Output Total 4850 400 Balance -2495 -76 Lab Results Last 24 Hours: Laboratory Results - last 24 hr 11/20/17 11/20/17 11/20/17 Range/Units 14:45 14:45 14:45 WBC 7.3 (4.5-12.0) X10-3/uL RBC 4.53 (3.23-5.20) x10(6)uL Hgb 11.7 (11.5-15.5) g/dL Hct 36.9 (30.0-51.3) % MCV 81.3 (80-96) fL MCH 25.9 L (27.7-33.6) pg MCHC 31.9 L (32.2-35.4) g/dL RDW 16.2 H (11.5-15.5) % Plt Count 271 (125-369) X10(3)uL MPV 7.7 (7.4-10.4) fL Neut % (Auto) 78.0 (46-82) % Lymph % (Auto) 12.6 L (13-37) % [place] % (Auto) 4.6 (4-12) % Eos % (Auto) 4 (1.0-5.0) % Baso % (Auto) 1 (0-2) % Neut # (Auto) 5.7 (1.6-8.3) # Lymph # (Auto) 0.9 (0.6-5.0) # [place] # (Auto) 0.3 (0.0-1.3) # Eos # (Auto) 0.3 (0.0-0.8) # Baso # (Auto) 0.1 (0.0-0.2) # Sodium 141 (135-145) mmol/L Potassium 4.2 (3.5-5.3) mmol/L Chloride 103 D (100-110) mmol/L Carbon Dioxide 27 (21-32) mmol/L BUN 10 (7-18) mg/dL Creatinine 0.8 (0.55-1.02) mg/dL Est Cr Clr Drug Dosing TNP Estimated GFR (MDRD) > 60 (>60) BUN/Creatinine Ratio 12.5 (9-20) Glucose 139 H D (80-116) mg/dL POC Glucose (80-116) mg/dL Calcium 9.1 (8.6-10.2) mg/dL Total Bilirubin 0.6 (0.1-1.3) mg/dL AST 18 (5-25) IU/L ALT 23 (12-36) U/L Alkaline Phosphatase 104 (56-112) IU/L Troponin I < 0.017 L (<0.017-0.056) ng/mL NT-Pro-B Natriuret Pep (<=125) pg/mL Total Protein 7.4 (6.0-8.0) g/dL Albumin 3.9 (3.2-4.6) g/dL Globulin 3.5 g/dL Albumin/Globulin Ratio 1.1 11/20/17 11/20/17 11/21/17 Range/Units 14:45 21:45 05:50 WBC 7.6 (4.5-12.0) X10-3/uL RBC 4.23 (3.23-5.20) x10(6)uL Hgb 11.1 L (11.5-15.5) g/dL Hct 34.1 (30.0-51.3) % MCV 80.7 (80-96) fL MCH 26.2 L (27.7-33.6) pg MCHC 32.4 (32.2-35.4) g/dL RDW 16.5 H (11.5-15.5) % Plt Count 277 (125-369) X10(3)uL MPV 7.9 (7.4-10.4) fL Neut % (Auto) 71.3 (46-82) % Lymph % (Auto) 17.7 (13-37) % [place] % (Auto) 6.6 (4-12) % Eos % (Auto) 4 (1.0-5.0) % Baso % (Auto) 1 (0-2) % Neut # (Auto) 5.4 (1.6-8.3) # Lymph # (Auto) 1.3 (0.6-5.0) # [place] # (Auto) 0.5 (0.0-1.3) # Eos # (Auto) 0.3 (0.0-0.8) # Baso # (Auto) 0.1 (0.0-0.2) # Sodium (135-145) mmol/L Potassium (3.5-5.3) mmol/L Chloride (100-110) mmol/L Carbon Dioxide (21-32) mmol/L BUN (7-18) mg/dL Creatinine (0.55-1.02) mg/dL Est Cr Clr Drug Dosing Estimated GFR (MDRD) (>60) BUN/Creatinine Ratio (9-20) Glucose (80-116) mg/dL POC Glucose 207 H (80-116) mg/dL Calcium (8.6-10.2) mg/dL Total Bilirubin (0.1-1.3) mg/dL AST (5-25) IU/L ALT (12-36) U/L Alkaline Phosphatase (56-112) IU/L Troponin I (<0.017-0.056) ng/mL NT-Pro-B Natriuret Pep 2281 H* (<=125) pg/mL Total Protein (6.0-8.0) g/dL Albumin (3.2-4.6) g/dL Globulin g/dL Albumin/Globulin Ratio 11/21/17 11/21/17 Range/Units 05:50 05:50 WBC (4.5-12.0) X10-3/uL RBC (3.23-5.20) x10(6)uL Hgb (11.5-15.5) g/dL Hct (30.0-51.3) % MCV (80-96) fL MCH (27.7-33.6) pg MCHC (32.2-35.4) g/dL RDW (11.5-15.5) % Plt Count (125-369) X10(3)uL MPV (7.4-10.4) fL Neut % (Auto) (46-82) % Lymph % (Auto) (13-37) % [place] % (Auto) (4-12) % Eos % (Auto) (1.0-5.0) % Baso % (Auto) (0-2) % Neut # (Auto) (1.6-8.3) # Lymph # (Auto) (0.6-5.0) # [place]y # (Auto) (0.0-1.3) # Eos # (Auto) (0.0-0.8) # Baso # (Auto) (0.0-0.2) # Sodium 141 (135-145) mmol/L Potassium 3.5 (3.5-5.3) mmol/L Chloride 101 (100-110) mmol/L Carbon Dioxide 34 H (21-32) mmol/L BUN 10 (7-18) mg/dL Creatinine 0.8 (0.55-1.02) mg/dL Est Cr Clr Drug Dosing 59.73 Estimated GFR (MDRD) > 60 (>60) BUN/Creatinine Ratio 12.5 (9-20) Glucose 138 H (80-116) mg/dL POC Glucose (80-116) mg/dL Calcium 8.8 (8.6-10.2) mg/dL Total Bilirubin (0.1-1.3) mg/dL AST (5-25) IU/L ALT (12-36) U/L Alkaline Phosphatase (56-112) IU/L Troponin I < 0.017 L (<0.017-0.056) ng/mL NT-Pro-B Natriuret Pep 2395 H* (<=125) pg/mL Total Protein (6.0-8.0) g/dL Albumin (3.2-4.6) g/dL Globulin g/dL Albumin/Globulin Ratio Med Orders - Current: Current Medications Amiodarone HCl (Cordarone) 100 mg PO DAILY [facility] Atorvastatin Calcium (Lipitor) 40 mg PO DAILY@1000 [facility] Ceftriaxone Sodium (Rocephin) 1,000 mg IVPUSH Q24H [facility] Last Admin: 11/20/17 21:19 Dose: 1,000 mg Ezetimibe (Zetia) 10 mg PO DAILY@1800 [facility] Furosemide (Lasix) 40 mg IVPUSH BID [facility] Nitroglycerin/Dextrose (Nitroglycerin 25 Mg/D5w 250 Ml) 25 mg in 250 mls @ 6 mls/hr IV TITRATE [facility]; Protocol Last Titration: 11/21/17 01:15 Dose: 10 mcg/min, 6 mls/hr Sodium Chloride (Normal Saline) 1,000 mls @ 75 mls/hr IV ASDIRECTED [facility] Last Infusion: 11/20/17 15:41 Dose: 35 mls/hr Insulin Aspart (Novolog) 0 unit SUBCUT TIDMEALS [facility]; Protocol Insulin Detemir (Levemir) 42 unit SUBCUT BEDTIME [facility] Last Admin: 11/20/17 23:42 Dose: 42 units Metformin HCl (Glucophage) 1,000 mg PO BID@1000,1800 [facility] Metoprolol Succinate (Toprol Xl) 100 mg PO DAILY [facility] Last Admin: 11/20/17 21:41 Dose: 100 mg Multivitamins/Minerals/Vitamin C (Tab-A-Driss) 1 tab PO DAILY [facility] Rivaroxaban (Xarelto) 20 mg PO WITHDINNER [facility] Sertraline HCl (Zoloft) 50 mg PO BEDTIME [facility] Last Admin: 11/20/17 21:41 Dose: 50 mg Sodium Chloride (Saline Flush) 10 ml FLUSH ASDIRECTED PRN PRN Reason: Keep Vein Open Last Admin: 11/20/17 21:25 Dose: 10 ml Discontinued Medications Furosemide (Lasix) 40 mg IVPUSH NOW ONE Stop: 11/20/17 15:39 Last Admin: 11/20/17 15:54 Dose: 40 mg Furosemide (Lasix) Confirm Administered Dose 40 mg .ROUTE .STK-MED ONE Stop: 11/20/17 15:53 Last Admin: 11/20/17 16:36 Dose: Not Given Furosemide (Lasix) 40 mg IVPUSH NOW ONE Stop: 11/20/17 19:57 Last Admin: 11/20/17 21:13 Dose: 40 mg - Exam Quality Assessment: Supplemental Oxygen General: Alert, Oriented HEENT: Pupils Equal Neck: Supple Lungs: Crackles, Rales Cardiovascular: Irregular Rhythm. No: Murmurs Back Exam: Normal Inspection Extremities: Normal Inspection, Increased Warmth, Redness. No: Pedal Edema - Problem List & Annotations (1) Acute exacerbation of CHF (congestive heart failure) SNOMED Code(s): 54459217 Code(s): I50.9 - HEART FAILURE, UNSPECIFIED Status: Acute Priority: High Current Visit: Yes Qualifiers: Heart failure type: diastolic Qualified Code(s): I50.33 - Acute on chronic diastolic (congestive) heart failure Annotation/Comment:: Admit to ICU (2) Cellulitis SNOMED Code(s): 027305468 Code(s): L03.90 - CELLULITIS, UNSPECIFIED Status: Acute Current Visit: No Qualifiers: Site of cellulitis: extremity Site of cellulitis of extremity: lower extremity Laterality: left Qualified Code(s): L03.116 - Cellulitis of left lower limb (3) 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, NYHA class 2 SNOMED Code(s): 25585880, 962220581, 314774184 Code(s): I10 - ESSENTIAL (PRIMARY) HYPERTENSION; I50.40 - UNSP COMBINED SYSTOLIC AND DIASTOLIC (CONGESTIVE) HRT FAIL Status: Acute Current Visit: No (4) Afib SNOMED Code(s): 22004597 Code(s): I48.91 - UNSPECIFIED ATRIAL FIBRILLATION Status: Chronic Current Visit: No Qualifiers: Atrial fibrillation type: paroxysmal Qualified Code(s): I48.0 - Paroxysmal atrial fibrillation Annotation/Comment:: Stable,on anticoagulation (5) Anxiety SNOMED Code(s): 70404078 Code(s): F41.9 - ANXIETY DISORDER, UNSPECIFIED Status: Chronic Current Visit: No Annotation/Comment:: (6) CAD, multiple vessel SNOMED Code(s): 289664255 Code(s): I25.10 - ATHSCL HEART DISEASE OF [place] CORONARY ARTERY W/O ANG PCTRS Status: Chronic Current Visit: No (7) Hyperlipidemia associated with type 2 diabetes mellitus SNOMED Code(s): 605066136417, 765659344644 Code(s): E11.69 - TYPE 2 DIABETES MELLITUS WITH OTHER SPECIFIED COMPLICATION ; E78.5 - HYPERLIPIDEMIA, UNSPECIFIED Status: Chronic Current Visit: No (8) Morbid obesity with BMI of 40.0-44.9, adult SNOMED Code(s): 267601416 Code(s): E66.01 - MORBID (SEVERE) OBESITY DUE TO EXCESS CALORIES; Z68.41 - BODY MASS INDEX (BMI) 40.0-44.9, ADULT Status: Chronic Current Visit: No - Problem List Review Problem List Initiated/Reviewed/Updated: Yes - My Orders Last 24 Hours: My Active Orders 11/20/17 19:05 Accu Check [Blood Glucose Check, Bedside] [RC] 07,1130,1730 11/20/17 20:00 cefTRIAXone [Rocephin] 1,000 mg IVPUSH Q24H 11/20/17 20:15 Metoprolol Succinate [Toprol XL] 100 mg PO DAILY Code Status [Resuscitation Status] Routine 11/20/17 21:00 Insulin Detemir [Levemir] 42 unit SUBCUT BEDTIME Sertraline [Zoloft] 50 mg PO BEDTIME 11/21/17 08:00 Insulin Aspart [NovoLOG] See Protocol SUBCUT TIDMEALS 11/21/17 09:00 Amiodarone [Cordarone] 100 mg PO DAILY Clobetasol [Clobetasol Propionate 0.05%] See Dose Instructions TOP BID Furosemide [Lasix] 40 mg IVPUSH BID Multivitamins [Tab-A-Driss] 1 tab PO DAILY 11/21/17 10:00 atorvaSTATin [Lipitor] 40 mg PO DAILY@1000 metFORMIN [Glucophage] 1,000 mg PO BID@1000,1800 11/21/17 18:00 Ezetimibe [Zetia] 10 mg PO DAILY@1800 Rivaroxaban [Xarelto] 20 mg PO WITHDINNER 11/22/17 05:11 BASIC METABOLIC PANEL,BMP [CHEM] DAILY PRO B-TYPE NATRIUR PEPT,BNPPRO [CHEM] DAILY 11/23/17 05:11 BASIC METABOLIC PANEL,BMP [CHEM] DAILY PRO B-TYPE NATRIUR PEPT,BNPPRO [CHEM] DAILY - Plan Plan:: Continue nitroglycerin drip for now, Lasix 40 mg IV twice a day. I prescribed clobetasol cream to apply to the back of the left neck. Repeat basic profile, BNP in the morning..Perform daily weights
[2017-11-21] MEDS: Insulin Aspart 100 Units/ML 3 ML Pen SUBCUT SCH ×2 (09:47→13:56)
[2017-11-21] MEDS: Clobetasol 0.05% Crm 15 GM Tube TOP SCH ×2 (09:48→20:30)
[2017-11-21] MEDS: Amiodarone 200 MG Tab PO SCH (09:49)
[2017-11-21] MEDS: Multivitamin Tab PO SCH (09:50)
[2017-11-21] MEDS: Furosemide 40 MG/4 ML VIAL IVPUSH SCH ×2 (09:50→15:20)
[2017-11-21] MEDS: atorvaSTATin 40 MG Tab PO SCH (09:51)
[2017-11-21] MEDS: Metoprolol Succinate 100 MG Tab.ER PO SCH (09:51)
[2017-11-21] MEDS: metFORMIN 1,000 MG Tab PO SCH ×2 (09:51→17:50)
[2017-11-21] MEDS: Sodium Chloride 0.9% 10 ML Syringe FLUSH PRN ×4 (10:00→19:48)
[2017-11-21] MEDS ORDERED: Insulin Lispro 100 Unit/ML 3 ML KwikPen SUBCUT SCH (13:15)
[2017-11-21] MEDS: Insulin Lispro 100 Unit/ML 3 ML KwikPen SUBCUT SCH ×2 (13:38→18:26)
[2017-11-21] MEDS ORDERED: Sodium Chloride 0.9% 1,000 ML IV SCH (14:15)
[2017-11-21] MEDS: Nitroglycerin/D5W 25 MG/250 ML BOTTLE IV SCH (15:20)
[2017-11-21] MEDS: Ezetimibe 10 MG Tab PO SCH (17:50)
[2017-11-21] MEDS: Rivaroxaban 10 MG Tab PO SCH (17:50)
[2017-11-21] MEDS: cefTRIAXone 1,000 MG VIAL IVPUSH SCH (19:48)
[2017-11-21] MEDS: Sertraline 50 MG Tab PO SCH (20:33)
[2017-11-21] MEDS: Insulin Detemir 100 Units/ML 3 ML Pen SUBCUT SCH (23:27)
[2017-11-22] MEDS: Acetaminophen 325 MG Tab PO PRN ×4 (03:11→21:58)
--- NOTE | 2017-11-22 08:37 | PCM.PN ---
- General Info Date of Service: 11/22/17 Subjective Update: Jennifer slept well, she has no pain or shortness of breath has improved, even with ambulation. Denies chest pain. Functional Status: Reports: Pain Controlled - Review of Systems Pulmonary: Reports: No Symptoms Cardiovascular: Reports: No Symptoms Gastrointestinal: Reports: No Symptoms - Patient Data Vitals - Most Recent: Last Vital Signs Temp 98.5 F 11/21/17 19:45 Pulse 64 11/22/17 06:00 Resp 17 11/22/17 06:00 BP 137/69 11/22/17 06:00 Pulse Ox 92 L 11/22/17 06:00 Weight - Most Recent: 114.078 kg I&O - Last 24 Hours: Intake & Output 11/21/17 11/22/17 11/22/17 22:59 06:59 14:59 Intake Total 253 284 Output Total 1300 Balance -1047 284 Lab Results Last 24 Hours: Laboratory Results - last 24 hr 11/21/17 11/21/17 11/22/17 Range/Units 12:40 17:54 06:15 Sodium 140 (135-145) mmol/L Potassium 3.5 (3.5-5.3) mmol/L Chloride 99 L (100-110) mmol/L Carbon Dioxide 34 H (21-32) mmol/L BUN 13 (7-18) mg/dL Creatinine 0.8 (0.55-1.02) mg/dL Est Cr Clr Drug Dosing 59.73 mL/min Estimated GFR (MDRD) > 60 (>60) BUN/Creatinine Ratio 16.3 (9-20) Glucose 134 H (80-116) mg/dL POC Glucose 175 H 148 H (80-116) mg/dL Calcium 8.7 (8.6-10.2) mg/dL NT-Pro-B Natriuret Pep (<=125) pg/mL 11/22/17 11/22/17 Range/Units 06:15 06:16 Sodium (135-145) mmol/L Potassium (3.5-5.3) mmol/L Chloride (100-110) mmol/L Carbon Dioxide (21-32) mmol/L BUN (7-18) mg/dL Creatinine (0.55-1.02) mg/dL Est Cr Clr Drug Dosing mL/min Estimated GFR (MDRD) (>60) BUN/Creatinine Ratio (9-20) Glucose (80-116) mg/dL POC Glucose 131 H (80-116) mg/dL Calcium (8.6-10.2) mg/dL NT-Pro-B Natriuret Pep 1654 H* (<=125) pg/mL Med Orders - Current: Current Medications Acetaminophen (Tylenol) 650 mg PO Q4H PRN PRN Reason: pain Last Admin: 11/22/17 03:11 Dose: 650 mg Amiodarone HCl (Cordarone) 100 mg PO DAILY [facility] Last Admin: 11/21/17 09:49 Dose: 100 mg Atorvastatin Calcium (Lipitor) 40 mg PO DAILY@1000 [facility] Last Admin: 11/21/17 09:51 Dose: 40 mg Ceftriaxone Sodium (Rocephin) 1,000 mg IVPUSH Q24H [facility] Last Admin: 11/21/17 19:48 Dose: 1,000 mg Clobetasol Propionate (Clobetasol Propionate 0.05%) 0 gm TOP BID [facility] Last Admin: 11/21/17 20:30 Dose: 1 applic Ezetimibe (Zetia) 10 mg PO DAILY@1800 [facility] Last Admin: 11/21/17 17:50 Dose: 10 mg Furosemide (Lasix) 40 mg IVPUSH BIDDIURETIC [facility] Last Admin: 11/21/17 15:20 Dose: 40 mg Sodium Chloride (Normal Saline) 1,000 mls @ 30 mls/hr IV ASDIRECTED [facility] Last Admin: 11/21/17 15:19 Dose: 30 mls/hr Insulin Detemir (Levemir) 42 unit SUBCUT BEDTIME [facility] Last Admin: 11/21/17 23:27 Dose: 42 units Insulin Human Lispro (Humalog) 0 unit SUBCUT TIDMEALS [facility]; Protocol Last Admin: 11/21/17 18:26 Dose: Not Given Melatonin (Melatonin) 10 mg PO BEDTIME [facility] Last Admin: 11/21/17 23:27 Dose: 10 mg Metformin HCl (Glucophage) 1,000 mg PO BID@1000,1800 [facility] Last Admin: 11/21/17 17:50 Dose: 1,000 mg Metoprolol Succinate (Toprol Xl) 100 mg PO DAILY [facility] Last Admin: 11/21/17 09:51 Dose: 100 mg Multivitamins/Minerals/Vitamin C (Tab-A-Driss) 1 tab PO DAILY [facility] Last Admin: 11/21/17 09:50 Dose: 1 tab Rivaroxaban (Xarelto) 20 mg PO WITHDINNER [facility] Last Admin: 11/21/17 17:50 Dose: 20 mg Sertraline HCl (Zoloft) 50 mg PO BEDTIME [facility] Last Admin: 11/21/17 20:33 Dose: 50 mg Sodium Chloride (Saline Flush) 10 ml FLUSH ASDIRECTED PRN PRN Reason: Keep Vein Open Last Admin: 11/21/17 19:48 Dose: 10 ml Discontinued Medications Furosemide (Lasix) 40 mg IVPUSH NOW ONE Stop: 11/20/17 15:39 Last Admin: 11/20/17 15:54 Dose: 40 mg Furosemide (Lasix) Confirm Administered Dose 40 mg .ROUTE .STK-MED ONE Stop: 11/20/17 15:53 Last Admin: 11/20/17 16:36 Dose: Not Given Furosemide (Lasix) 40 mg IVPUSH NOW ONE Stop: 11/20/17 19:57 Last Admin: 11/20/17 21:13 Dose: 40 mg Nitroglycerin/Dextrose (Nitroglycerin 25 Mg/D5w 250 Ml) 25 mg in 250 mls @ 6 mls/hr IV TITRATE [facility]; Protocol Last Admin: 11/21/17 15:20 Dose: 10 mcg/min, 6 mls/hr Sodium Chloride (Normal Saline) 1,000 mls @ 75 mls/hr IV ASDIRECTED [facility] Last Infusion: 11/20/17 15:41 Dose: 35 mls/hr Insulin Aspart (Novolog) 0 unit SUBCUT TIDMEALS [facility]; Protocol Last Admin: 11/21/17 13:56 Dose: Not Given Insulin Human Lispro (Humalog) 0 unit SUBCUT TIDMEALS [facility]; Protocol - Exam Quality Assessment: Supplemental Oxygen General: Alert, Oriented HEENT: Pupils Equal Neck: Supple Lungs: Clear to Auscultation, Decreased Breath Sounds Cardiovascular: Regular Rate, Regular Rhythm GI/Abdominal Exam: Normal Bowel Sounds, Soft, Non-Tender, No Organomegaly, No Distention, No Abnormal Bruit, No Mass, Pelvis Stable - Problem List & Annotations (1) Acute exacerbation of CHF (congestive heart failure) SNOMED Code(s): 33388906 Code(s): I50.9 - HEART FAILURE, UNSPECIFIED Status: Acute Priority: High Current Visit: Yes Qualifiers: Heart failure type: diastolic Qualified Code(s): I50.33 - Acute on chronic diastolic (congestive) heart failure Annotation/Comment:: Admit to ICU (2) Cellulitis SNOMED Code(s): 501344398 Code(s): L03.90 - CELLULITIS, UNSPECIFIED Status: Acute Current Visit: No Qualifiers: Site of cellulitis: extremity Site of cellulitis of extremity: lower extremity Laterality: left Qualified Code(s): L03.116 - Cellulitis of left lower limb (3) 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, NYHA class 2 SNOMED Code(s): 78183531, 944286897, 842403794 Code(s): I10 - ESSENTIAL (PRIMARY) HYPERTENSION; I50.40 - UNSP COMBINED SYSTOLIC AND DIASTOLIC (CONGESTIVE) HRT FAIL Status: Acute Current Visit: No (4) Afib SNOMED Code(s): 75895989 Code(s): I48.91 - UNSPECIFIED ATRIAL FIBRILLATION Status: Chronic Current Visit: No Qualifiers: Atrial fibrillation type: paroxysmal Qualified Code(s): I48.0 - Paroxysmal atrial fibrillation Annotation/Comment:: Stable,on anticoagulation (5) Anxiety SNOMED Code(s): 71261423 Code(s): F41.9 - ANXIETY DISORDER, UNSPECIFIED Status: Chronic Current Visit: No Annotation/Comment:: (6) CAD, multiple vessel SNOMED Code(s): 355768615 Code(s): I25.10 - ATHSCL HEART DISEASE OF [place] CORONARY ARTERY W/O ANG PCTRS Status: Chronic Current Visit: No (7) Hyperlipidemia associated with type 2 diabetes mellitus SNOMED Code(s): 253350117390, 286896475923 Code(s): E11.69 - TYPE 2 DIABETES MELLITUS WITH OTHER SPECIFIED COMPLICATION ; E78.5 - HYPERLIPIDEMIA, UNSPECIFIED Status: Chronic Current Visit: No (8) Morbid obesity with BMI of 40.0-44.9, adult SNOMED Code(s): 699153864 Code(s): E66.01 - MORBID (SEVERE) OBESITY DUE TO EXCESS CALORIES; Z68.41 - BODY MASS INDEX (BMI) 40.0-44.9, ADULT Status: Chronic Current Visit: No - Problem List Review Problem List Initiated/Reviewed/Updated: Yes - My Orders Last 24 Hours: My Active Orders 11/21/17 09:00 Amiodarone [Cordarone] 100 mg PO DAILY Clobetasol [Clobetasol Propionate 0.05%] See Dose Instructions TOP BID Furosemide [Lasix] 40 mg IVPUSH BIDDIURETIC Multivitamins [Tab-A-Driss] 1 tab PO DAILY 11/21/17 10:00 atorvaSTATin [Lipitor] 40 mg PO DAILY@1000 metFORMIN [Glucophage] 1,000 mg PO BID@1000,1800 11/21/17 11:54 Weight Daily [Height and Weight] [RC] 06 11/21/17 12:00 Insulin Lispro [HumaLOG] 0 unit SUBCUT TIDMEALS 11/21/17 14:15 Sodium Chloride 0.9% [Normal Saline] 1,000 ml IV ASDIRECTED 11/21/17 18:00 Ezetimibe [Zetia] 10 mg PO DAILY@1800 Rivaroxaban [Xarelto] 20 mg PO WITHDINNER 11/21/17 21:00 Melatonin 10 mg PO BEDTIME 11/22/17 02:54 Acetaminophen [Tylenol] 650 mg PO Q4H PRN 11/23/17 05:11 BASIC METABOLIC PANEL,BMP [CHEM] DAILY PRO B-TYPE NATRIUR PEPT,BNPPRO [CHEM] DAILY - Plan Plan:: Wean off O2, and nitroglycerin drip. Continue IV Lasix. Ambulate.
[2017-11-22] MEDS: Furosemide 40 MG/4 ML VIAL IVPUSH SCH ×2 (09:00→15:20)
[2017-11-22] MEDS: Sodium Chloride 0.9% 10 ML Syringe FLUSH PRN ×2 (09:10→20:25)
[2017-11-22] MEDS: Insulin Lispro 100 Unit/ML 3 ML KwikPen SUBCUT SCH ×3 (09:40→18:05)
[2017-11-22] MEDS: Clobetasol 0.05% Crm 15 GM Tube TOP SCH ×2 (09:45→20:33)
[2017-11-22] MEDS: Amiodarone 200 MG Tab PO SCH (09:50)
[2017-11-22] MEDS: metFORMIN 1,000 MG Tab PO SCH ×2 (09:51→18:04)
[2017-11-22] MEDS: Metoprolol Succinate 100 MG Tab.ER PO SCH (09:51)
[2017-11-22] MEDS: Multivitamin Tab PO SCH (09:51)
[2017-11-22] MEDS: atorvaSTATin 40 MG Tab PO SCH (09:51)
[2017-11-22] MEDS: Ezetimibe 10 MG Tab PO SCH (18:04)
[2017-11-22] MEDS: Rivaroxaban 10 MG Tab PO SCH (18:04)
[2017-11-22] MEDS: cefTRIAXone 1,000 MG VIAL IVPUSH SCH (20:31)
[2017-11-22] MEDS: Sertraline 50 MG Tab PO SCH (20:35)
[2017-11-22] MEDS: Insulin Detemir 100 Units/ML 3 ML Pen SUBCUT SCH (21:59)
[2017-11-23] MEDS: Acetaminophen 325 MG Tab PO PRN ×3 (03:40→21:22)
[2017-11-23] MEDS ORDERED: Albuterol/Ipratropium 3.0-0.5 MG/3 ML Neb Soln NEB PRN (08:22)
--- NOTE | 2017-11-23 08:25 | PCM.PN ---
- General Info Date of Service: 11/23/17 Subjective Update: Jennifer has no new complaints today. She still oxygen, but has ambulated well and is out of ICU. She denies chest pain or shortness of breath. - Review of Systems Cardiovascular: Reports: No Symptoms Gastrointestinal: Reports: No Symptoms Genitourinary: Reports: No Symptoms Musculoskeletal: Reports: No Symptoms - Patient Data Vitals - Most Recent: Last Vital Signs Temp 98.9 F 11/22/17 20:27 Pulse 72 11/23/17 03:45 Resp 20 11/23/17 03:45 BP 131/66 11/23/17 03:45 Pulse Ox 93 L 11/23/17 03:45 Weight - Most Recent: 111.856 kg I&O - Last 24 Hours: Intake & Output 11/22/17 11/23/17 11/23/17 22:59 06:59 14:59 Output Total 400 Balance -400 Lab Results Last 24 Hours: Laboratory Results - last 24 hr 11/22/17 11/22/17 11/23/17 Range/Units 13:30 17:54 06:26 Sodium (135-145) mmol/L Potassium (3.5-5.3) mmol/L Chloride (100-110) mmol/L Carbon Dioxide (21-32) mmol/L BUN (7-18) mg/dL Creatinine (0.55-1.02) mg/dL Est Cr Clr Drug Dosing mL/min Estimated GFR (MDRD) (>60) BUN/Creatinine Ratio (9-20) Glucose (80-116) mg/dL POC Glucose 147 H 192 H 123 H (80-116) mg/dL Calcium (8.6-10.2) mg/dL NT-Pro-B Natriuret Pep (<=125) pg/mL 11/23/17 11/23/17 Range/Units 06:40 06:40 Sodium 140 (135-145) mmol/L Potassium 3.6 (3.5-5.3) mmol/L Chloride 99 L (100-110) mmol/L Carbon Dioxide 34 H (21-32) mmol/L BUN 15 (7-18) mg/dL Creatinine 0.8 (0.55-1.02) mg/dL Est Cr Clr Drug Dosing 59.73 mL/min Estimated GFR (MDRD) > 60 (>60) BUN/Creatinine Ratio 18.8 (9-20) Glucose 120 H (80-116) mg/dL POC Glucose (80-116) mg/dL Calcium 9.4 (8.6-10.2) mg/dL NT-Pro-B Natriuret Pep 1311 H* (<=125) pg/mL Med Orders - Current: Current Medications Acetaminophen (Tylenol) 650 mg PO Q4H PRN PRN Reason: pain Last Admin: 11/23/17 03:40 Dose: 650 mg Albuterol/Ipratropium (Duoneb 3.0-0.5 Mg/3 Ml) 3 ml NEB Q6H PRN PRN Reason: Wheezing Amiodarone HCl (Cordarone) 100 mg PO DAILY [facility] Last Admin: 11/22/17 09:50 Dose: 100 mg Atorvastatin Calcium (Lipitor) 40 mg PO DAILY@1000 [facility] Last Admin: 11/22/17 09:51 Dose: 40 mg Ceftriaxone Sodium (Rocephin) 1,000 mg IVPUSH Q24H [facility] Last Admin: 11/22/17 20:31 Dose: 1,000 mg Clobetasol Propionate (Clobetasol Propionate 0.05%) 0 gm TOP BID [facility] Last Admin: 11/22/17 20:33 Dose: 1 applic Ezetimibe (Zetia) 10 mg PO DAILY@1800 [facility] Last Admin: 11/22/17 18:04 Dose: 10 mg Furosemide (Lasix) 40 mg IVPUSH BIDDIURETIC [facility] Last Admin: 11/22/17 15:20 Dose: 40 mg Insulin Detemir (Levemir) 42 unit SUBCUT BEDTIME [facility] Last Admin: 11/22/17 21:59 Dose: 42 units Insulin Human Lispro (Humalog) 0 unit SUBCUT TIDMEALS [facility]; Protocol Last Admin: 11/22/17 18:05 Dose: 1 unit Melatonin (Melatonin) 10 mg PO BEDTIME [facility] Last Admin: 11/22/17 21:59 Dose: 10 mg Metformin HCl (Glucophage) 1,000 mg PO BID@1000,1800 [facility] Last Admin: 11/22/17 18:04 Dose: 1,000 mg Metoprolol Succinate (Toprol Xl) 100 mg PO DAILY [facility] Last Admin: 11/22/17 09:51 Dose: 100 mg Multivitamins/Minerals/Vitamin C (Tab-A-Driss) 1 tab PO DAILY [facility] Last Admin: 11/22/17 09:51 Dose: 1 tab Rivaroxaban (Xarelto) 20 mg PO WITHDINNER [facility] Last Admin: 11/22/17 18:04 Dose: 20 mg Sertraline HCl (Zoloft) 50 mg PO BEDTIME [facility] Last Admin: 11/22/17 20:35 Dose: 50 mg Sodium Chloride (Saline Flush) 10 ml FLUSH ASDIRECTED PRN PRN Reason: Keep Vein Open Last Admin: 11/22/17 20:25 Dose: 10 ml Discontinued Medications Furosemide (Lasix) 40 mg IVPUSH NOW ONE Stop: 11/20/17 15:39 Last Admin: 11/20/17 15:54 Dose: 40 mg Furosemide (Lasix) Confirm Administered Dose 40 mg .ROUTE .STK-MED ONE Stop: 11/20/17 15:53 Last Admin: 11/20/17 16:36 Dose: Not Given Furosemide (Lasix) 40 mg IVPUSH NOW ONE Stop: 11/20/17 19:57 Last Admin: 11/20/17 21:13 Dose: 40 mg Nitroglycerin/Dextrose (Nitroglycerin 25 Mg/D5w 250 Ml) 25 mg in 250 mls @ 6 mls/hr IV TITRATE [facility]; Protocol Last Admin: 11/21/17 15:20 Dose: 10 mcg/min, 6 mls/hr Sodium Chloride (Normal Saline) 1,000 mls @ 75 mls/hr IV ASDIRECTED [facility] Last Infusion: 11/20/17 15:41 Dose: 35 mls/hr Sodium Chloride (Normal Saline) 1,000 mls @ 30 mls/hr IV ASDIRECTED [facility] Last Admin: 11/21/17 15:19 Dose: 30 mls/hr Insulin Aspart (Novolog) 0 unit SUBCUT TIDMEALS [facility]; Protocol Last Admin: 11/21/17 13:56 Dose: Not Given Insulin Human Lispro (Humalog) 0 unit SUBCUT TIDMEALS [facility]; Protocol - Exam Quality Assessment: Supplemental Oxygen General: Alert, Oriented HEENT: Pupils Equal Neck: Supple Lungs: Clear to Auscultation Cardiovascular: Regular Rate - Problem List & Annotations (1) Acute exacerbation of CHF (congestive heart failure) SNOMED Code(s): 39594678 Code(s): I50.9 - HEART FAILURE, UNSPECIFIED Status: Acute Priority: High Current Visit: Yes Qualifiers: Heart failure type: diastolic Qualified Code(s): I50.33 - Acute on chronic diastolic (congestive) heart failure Annotation/Comment:: Admit to ICU (2) Cellulitis SNOMED Code(s): 018900854 Code(s): L03.90 - CELLULITIS, UNSPECIFIED Status: Acute Current Visit: No Qualifiers: Site of cellulitis: extremity Site of cellulitis of extremity: lower extremity Laterality: left Qualified Code(s): L03.116 - Cellulitis of left lower limb (3) 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, NYHA class 2 SNOMED Code(s): 57370372, 354118586, 699767653 Code(s): I10 - ESSENTIAL (PRIMARY) HYPERTENSION; I50.40 - UNSP COMBINED SYSTOLIC AND DIASTOLIC (CONGESTIVE) HRT FAIL Status: Acute Current Visit: No (4) Afib SNOMED Code(s): 35760907 Code(s): I48.91 - UNSPECIFIED ATRIAL FIBRILLATION Status: Chronic Current Visit: No Qualifiers: Atrial fibrillation type: paroxysmal Qualified Code(s): I48.0 - Paroxysmal atrial fibrillation Annotation/Comment:: Stable,on anticoagulation (5) Anxiety SNOMED Code(s): 66393215 Code(s): F41.9 - ANXIETY DISORDER, UNSPECIFIED Status: Chronic Current Visit: No Annotation/Comment:: (6) CAD, multiple vessel SNOMED Code(s): 775771120 Code(s): I25.10 - ATHSCL HEART DISEASE OF [place] CORONARY ARTERY W/O ANG PCTRS Status: Chronic Current Visit: No (7) Hyperlipidemia associated with type 2 diabetes mellitus SNOMED Code(s): 687769909085, 209827171967 Code(s): E11.69 - TYPE 2 DIABETES MELLITUS WITH OTHER SPECIFIED COMPLICATION ; E78.5 - HYPERLIPIDEMIA, UNSPECIFIED Status: Chronic Current Visit: No (8) Morbid obesity with BMI of 40.0-44.9, adult SNOMED Code(s): 588382089 Code(s): E66.01 - MORBID (SEVERE) OBESITY DUE TO EXCESS CALORIES; Z68.41 - BODY MASS INDEX (BMI) 40.0-44.9, ADULT Status: Chronic Current Visit: No - Problem List Review Problem List Initiated/Reviewed/Updated: Yes - My Orders Last 24 Hours: My Active Orders 11/22/17 08:00 Ambulate [RC] 09,13,17,21 11/23/17 08:22 Albuterol/Ipratropium [DuoNeb 3.0-0.5 MG/3 ML] 3 ml NEB Q6H PRN 11/23/17 08:23 RT Aerosol Therapy [RC] ASDIRECTED 11/24/17 05:11 BASIC METABOLIC PANEL,BMP [CHEM] AM CBC WITH AUTO DIFF [HEME] AM PRO B-TYPE NATRIUR PEPT,BNPPRO [CHEM] DAILY TROPONIN I [CHEM] AM - Plan Plan:: Continue IV Lasix, evaluate for home O2. Obtain a CBC basic profile and echocardiogram tomorrow. Consider discharge on Thursday. I also tried DuoNeb as needed because of the remote history of COPD.
[2017-11-23] MEDS: Furosemide 40 MG/4 ML VIAL IVPUSH SCH ×2 (09:00→15:36)
[2017-11-23] MEDS: Amiodarone 200 MG Tab PO SCH (09:20)
[2017-11-23] MEDS: Clobetasol 0.05% Crm 15 GM Tube TOP SCH ×2 (09:20→21:22)
[2017-11-23] MEDS: Multivitamin Tab PO SCH (09:21)
[2017-11-23] MEDS: Metoprolol Succinate 100 MG Tab.ER PO SCH (09:21)
[2017-11-23] MEDS: metFORMIN 1,000 MG Tab PO SCH ×2 (09:22→17:45)
[2017-11-23] MEDS: atorvaSTATin 40 MG Tab PO SCH (09:22)
[2017-11-23] MEDS: Sodium Chloride 0.9% 10 ML Syringe FLUSH PRN ×3 (09:22→20:38)
[2017-11-23] MEDS: Insulin Lispro 100 Unit/ML 3 ML KwikPen SUBCUT SCH ×3 (09:51→17:46)
[2017-11-23] MEDS: Rivaroxaban 10 MG Tab PO SCH (17:46)
[2017-11-23] MEDS: Ezetimibe 10 MG Tab PO SCH (17:47)
[2017-11-23] MEDS: cefTRIAXone 1,000 MG VIAL IVPUSH SCH (20:28)
[2017-11-23] MEDS: Insulin Detemir 100 Units/ML 3 ML Pen SUBCUT SCH (22:29)
[2017-11-23] MEDS: Sertraline 50 MG Tab PO SCH (22:29)
[2017-11-24] MEDS: Acetaminophen 325 MG Tab PO PRN ×2 (03:46→22:23)
--- NOTE | 2017-11-24 08:50 | PCM.PN ---
- General Info Date of Service: 11/24/17 Subjective Update: Jennifer slept well. She has no complaints this morning. Her ECHO is due today. - Review of Systems HEENT: Reports: No Symptoms Cardiovascular: Reports: No Symptoms Gastrointestinal: Reports: No Symptoms Genitourinary: Reports: No Symptoms - Patient Data Vitals - Most Recent: Last Vital Signs Temp 98.0 F 11/24/17 04:00 Pulse 76 11/24/17 04:00 Resp 20 11/24/17 04:00 BP 152/62 H 11/24/17 04:00 Pulse Ox 94 L 11/24/17 04:00 Weight - Most Recent: 112.548 kg I&O - Last 24 Hours: Intake & Output 11/23/17 11/24/17 11/24/17 22:59 06:59 14:59 Intake Total 100 Balance 100 Lab Results Last 24 Hours: Laboratory Results - last 24 hr 11/23/17 11/23/17 11/24/17 Range/Units 12:00 17:35 06:10 WBC 8.1 (4.5-12.0) X10-3/uL RBC 4.29 (3.23-5.20) x10(6)uL Hgb 11.4 L (11.5-15.5) g/dL Hct 34.8 (30.0-51.3) % MCV 81.0 (80-96) fL MCH 26.6 L (27.7-33.6) pg MCHC 32.8 (32.2-35.4) g/dL RDW 16.0 H (11.5-15.5) % Plt Count 284 (125-369) X10(3)uL MPV 8.0 (7.4-10.4) fL Neut % (Auto) 66.6 (46-82) % Lymph % (Auto) 18.4 (13-37) % Cook % (Auto) 8.2 (4-12) % Eos % (Auto) 6 H (1.0-5.0) % Baso % (Auto) 1 (0-2) % Neut # (Auto) 5.4 (1.6-8.3) # Lymph # (Auto) 1.5 (0.6-5.0) # Cook # (Auto) 0.7 (0.0-1.3) # Eos # (Auto) 0.5 (0.0-0.8) # Baso # (Auto) 0.0 (0.0-0.2) # Sodium (135-145) mmol/L Potassium (3.5-5.3) mmol/L Chloride (100-110) mmol/L Carbon Dioxide (21-32) mmol/L BUN (7-18) mg/dL Creatinine (0.55-1.02) mg/dL Est Cr Clr Drug Dosing mL/min Estimated GFR (MDRD) (>60) BUN/Creatinine Ratio (9-20) Glucose (80-116) mg/dL POC Glucose 161 H 163 H (80-116) mg/dL Calcium (8.6-10.2) mg/dL Troponin I (<0.017-0.056) ng/mL NT-Pro-B Natriuret Pep (<=125) pg/mL 11/24/17 11/24/17 11/24/17 Range/Units 06:10 06:10 06:10 WBC (4.5-12.0) X10-3/uL RBC (3.23-5.20) x10(6)uL Hgb (11.5-15.5) g/dL Hct (30.0-51.3) % MCV (80-96) fL MCH (27.7-33.6) pg MCHC (32.2-35.4) g/dL RDW (11.5-15.5) % Plt Count (125-369) X10(3)uL MPV (7.4-10.4) fL Neut % (Auto) (46-82) % Lymph % (Auto) (13-37) % Cook % (Auto) (4-12) % Eos % (Auto) (1.0-5.0) % Baso % (Auto) (0-2) % Neut # (Auto) (1.6-8.3) # Lymph # (Auto) (0.6-5.0) # Cook # (Auto) (0.0-1.3) # Eos # (Auto) (0.0-0.8) # Baso # (Auto) (0.0-0.2) # Sodium 140 (135-145) mmol/L Potassium 3.4 L (3.5-5.3) mmol/L Chloride 100 (100-110) mmol/L Carbon Dioxide 34 H (21-32) mmol/L BUN 17 (7-18) mg/dL Creatinine 0.8 (0.55-1.02) mg/dL Est Cr Clr Drug Dosing 59.73 mL/min Estimated GFR (MDRD) > 60 (>60) BUN/Creatinine Ratio 21.3 H (9-20) Glucose 112 (80-116) mg/dL POC Glucose 123 H (80-116) mg/dL Calcium 8.7 (8.6-10.2) mg/dL Troponin I < 0.017 L (<0.017-0.056) ng/mL NT-Pro-B Natriuret Pep 1265 H* (<=125) pg/mL Med Orders - Current: Current Medications Acetaminophen (Tylenol) 650 mg PO Q4H PRN PRN Reason: pain Last Admin: 11/24/17 03:46 Dose: 650 mg Albuterol/Ipratropium (Duoneb 3.0-0.5 Mg/3 Ml) 3 ml NEB Q6H PRN PRN Reason: Wheezing Amiodarone HCl (Cordarone) 100 mg PO DAILY [facility] Last Admin: 11/23/17 09:20 Dose: 100 mg Atorvastatin Calcium (Lipitor) 40 mg PO DAILY@1000 [facility] Last Admin: 11/23/17 09:22 Dose: 40 mg Ceftriaxone Sodium (Rocephin) 1,000 mg IVPUSH Q24H [facility] Last Admin: 11/23/17 20:28 Dose: 1,000 mg Clobetasol Propionate (Clobetasol Propionate 0.05%) 0 gm TOP BID [facility] Last Admin: 11/23/17 21:22 Dose: 1 applic Ezetimibe (Zetia) 10 mg PO DAILY@1800 [facility] Last Admin: 11/23/17 17:47 Dose: 10 mg Furosemide (Lasix) 40 mg PO BIDDIURETIC [facility] Insulin Detemir (Levemir) 42 unit SUBCUT BEDTIME [facility] Last Admin: 11/23/17 22:29 Dose: 42 units Insulin Human Lispro (Humalog) 0 unit SUBCUT TIDMEALS [facility]; Protocol Last Admin: 11/23/17 17:46 Dose: 1 unit Melatonin (Melatonin) 10 mg PO BEDTIME [facility] Last Admin: 11/23/17 22:29 Dose: 10 mg Metformin HCl (Glucophage) 1,000 mg PO BID@1000,1800 [facility] Last Admin: 11/23/17 17:45 Dose: 1,000 mg Metoprolol Succinate (Toprol Xl) 100 mg PO DAILY [facility] Last Admin: 11/23/17 09:21 Dose: 100 mg Multivitamins/Minerals/Vitamin C (Tab-A-Driss) 1 tab PO DAILY [facility] Last Admin: 11/23/17 09:21 Dose: 1 tab Rivaroxaban (Xarelto) 20 mg PO WITHDINNER [facility] Last Admin: 11/23/17 17:46 Dose: 20 mg Sertraline HCl (Zoloft) 50 mg PO BEDTIME [facility] Last Admin: 11/23/17 22:29 Dose: 50 mg Sodium Chloride (Saline Flush) 10 ml FLUSH ASDIRECTED PRN PRN Reason: Keep Vein Open Last Admin: 11/23/17 20:38 Dose: 10 ml Discontinued Medications Furosemide (Lasix) 40 mg IVPUSH NOW ONE Stop: 11/20/17 15:39 Last Admin: 11/20/17 15:54 Dose: 40 mg Furosemide (Lasix) Confirm Administered Dose 40 mg .ROUTE .STK-MED ONE Stop: 11/20/17 15:53 Last Admin: 11/20/17 16:36 Dose: Not Given Furosemide (Lasix) 40 mg IVPUSH NOW ONE Stop: 11/20/17 19:57 Last Admin: 11/20/17 21:13 Dose: 40 mg Furosemide (Lasix) 40 mg IVPUSH BIDDIURETIC [facility] Last Admin: 11/23/17 15:36 Dose: 40 mg Nitroglycerin/Dextrose (Nitroglycerin 25 Mg/D5w 250 Ml) 25 mg in 250 mls @ 6 mls/hr IV TITRATE [facility]; Protocol Last Admin: 11/21/17 15:20 Dose: 10 mcg/min, 6 mls/hr Sodium Chloride (Normal Saline) 1,000 mls @ 75 mls/hr IV ASDIRECTED [facility] Last Infusion: 11/20/17 15:41 Dose: 35 mls/hr Sodium Chloride (Normal Saline) 1,000 mls @ 30 mls/hr IV ASDIRECTED [facility] Last Admin: 11/21/17 15:19 Dose: 30 mls/hr Insulin Aspart (Novolog) 0 unit SUBCUT TIDMEALS [facility]; Protocol Last Admin: 11/21/17 13:56 Dose: Not Given Insulin Human Lispro (Humalog) 0 unit SUBCUT TIDMEALS [facility]; Protocol - Exam Quality Assessment: Supplemental Oxygen General: Alert, Oriented HEENT: Pupils Equal, Pupils Reactive, EOMI, Mucous Membr. Moist/[place] Lungs: Clear to Auscultation - Problem List & Annotations (1) Acute exacerbation of CHF (congestive heart failure) SNOMED Code(s): 52768827 Code(s): I50.9 - HEART FAILURE, UNSPECIFIED Status: Acute Priority: High Current Visit: Yes Qualifiers: Heart failure type: diastolic Qualified Code(s): I50.33 - Acute on chronic diastolic (congestive) heart failure Annotation/Comment:: Admit to ICU (2) Cellulitis SNOMED Code(s): 322085054 Code(s): L03.90 - CELLULITIS, UNSPECIFIED Status: Acute Current Visit: No Qualifiers: Site of cellulitis: extremity Site of cellulitis of extremity: lower extremity Laterality: left Qualified Code(s): L03.116 - Cellulitis of left lower limb (3) 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, NYHA class 2 SNOMED Code(s): 60790570, 769269712, 754011403 Code(s): I10 - ESSENTIAL (PRIMARY) HYPERTENSION; I50.40 - UNSP COMBINED SYSTOLIC AND DIASTOLIC (CONGESTIVE) HRT FAIL Status: Acute Current Visit: No (4) Afib SNOMED Code(s): 76964113 Code(s): I48.91 - UNSPECIFIED ATRIAL FIBRILLATION Status: Chronic Current Visit: No Qualifiers: Atrial fibrillation type: paroxysmal Qualified Code(s): I48.0 - Paroxysmal atrial fibrillation Annotation/Comment:: Stable,on anticoagulation (5) Anxiety SNOMED Code(s): 98799176 Code(s): F41.9 - ANXIETY DISORDER, UNSPECIFIED Status: Chronic Current Visit: No Annotation/Comment:: (6) CAD, multiple vessel SNOMED Code(s): 593670000 Code(s): I25.10 - ATHSCL HEART DISEASE OF [place] CORONARY ARTERY W/O ANG PCTRS Status: Chronic Current Visit: No (7) Hyperlipidemia associated with type 2 diabetes mellitus SNOMED Code(s): 725599087955, 092190022871 Code(s): E11.69 - TYPE 2 DIABETES MELLITUS WITH OTHER SPECIFIED COMPLICATION ; E78.5 - HYPERLIPIDEMIA, UNSPECIFIED Status: Chronic Current Visit: No (8) Morbid obesity with BMI of 40.0-44.9, adult SNOMED Code(s): 650270841 Code(s): E66.01 - MORBID (SEVERE) OBESITY DUE TO EXCESS CALORIES; Z68.41 - BODY MASS INDEX (BMI) 40.0-44.9, ADULT Status: Chronic Current Visit: No (9) KHANG (obstructive sleep apnea) SNOMED Code(s): 76456431 Code(s): G47.33 - OBSTRUCTIVE SLEEP APNEA (ADULT) (PEDIATRIC) Status: Acute Current Visit: Yes - Problem List Review Problem List Initiated/Reviewed/Updated: Yes - My Orders Last 24 Hours: My Active Orders 11/23/17 08:22 Albuterol/Ipratropium [DuoNeb 3.0-0.5 MG/3 ML] 3 ml NEB Q6H PRN 11/23/17 08:23 RT Aerosol Therapy [RC] ASDIRECTED 11/24/17 08:25 Echo Comp wo Cont [US] Routine 11/24/17 14:00 Furosemide [Lasix] 40 mg PO BIDDIURETIC 11/25/17 05:11 BASIC METABOLIC PANEL,BMP [CHEM] AM - Plan Plan:: Jennifer probably has obstructive sleep apnea. She will benefit from a polysomnogram as an outpatient. For today, I'll change from IV to oral Lasix, continue ambulation ,have an echo today and plan to discharge tomorrow.
[2017-11-24] MEDS: Clobetasol 0.05% Crm 15 GM Tube TOP SCH ×2 (09:05→22:18)
[2017-11-24] MEDS: Amiodarone 200 MG Tab PO SCH (09:06)
[2017-11-24] MEDS: Furosemide 40 MG Tab PO SCH ×2 (09:06→14:13)
[2017-11-24] MEDS: Multivitamin Tab PO SCH (09:07)
[2017-11-24] MEDS: metFORMIN 1,000 MG Tab PO SCH ×2 (09:07→17:58)
[2017-11-24] MEDS: Metoprolol Succinate 100 MG Tab.ER PO SCH (09:07)
[2017-11-24] MEDS: atorvaSTATin 40 MG Tab PO SCH (09:08)
[2017-11-24] MEDS: Insulin Lispro 100 Unit/ML 3 ML KwikPen SUBCUT SCH ×3 (09:34→17:59)
[2017-11-24] MEDS: Furosemide 40 MG/4 ML VIAL IVPUSH SCH (11:02)
[2017-11-24] MEDS: Rivaroxaban 10 MG Tab PO SCH (17:58)
[2017-11-24] MEDS: Ezetimibe 10 MG Tab PO SCH (17:58)
[2017-11-24] MEDS: cefTRIAXone 1,000 MG VIAL IVPUSH SCH (19:50)
[2017-11-24] MEDS: Sodium Chloride 0.9% 10 ML Syringe FLUSH PRN (19:57)
[2017-11-24] MEDS: Insulin Detemir 100 Units/ML 3 ML Pen SUBCUT SCH (22:19)
[2017-11-24] MEDS: Sertraline 50 MG Tab PO SCH (22:21)
[2017-11-25] MEDS: Insulin Lispro 100 Unit/ML 3 ML KwikPen SUBCUT SCH (07:14)
[2017-11-25] MEDS: Amiodarone 200 MG Tab PO SCH (08:41)
[2017-11-25] MEDS: Clobetasol 0.05% Crm 15 GM Tube TOP SCH (08:41)
[2017-11-25] MEDS: Furosemide 40 MG Tab PO SCH (08:41)
[2017-11-25] MEDS: Multivitamin Tab PO SCH (08:42)
[2017-11-25] MEDS: Metoprolol Succinate 100 MG Tab.ER PO SCH (08:42)
[2017-11-25 08:43] VITALS: BP 147/90
[2017-11-25] MEDS: metFORMIN 1,000 MG Tab PO SCH (09:35)
[2017-11-25] MEDS: atorvaSTATin 40 MG Tab PO SCH (09:35)
--- NOTE | 2017-11-25 09:46 | PCM.PN ---
- General Info Date of Service: 11/25/17 Subjective Update: Jennifer slept well. She has no complaints this morning. Her ECHO was done yesterday ,no significant effect on EF or regional wall abnormalities. Mild aortic stenosis. - Review of Systems Gastrointestinal: Reports: No Symptoms Genitourinary: Reports: No Symptoms Musculoskeletal: Reports: No Symptoms - Patient Data Vitals - Most Recent: Last Vital Signs Temp 97.8 F 11/25/17 04:30 Pulse 72 11/25/17 08:42 Resp 16 11/25/17 04:30 BP 147/90 H 11/25/17 08:42 Pulse Ox 95 11/25/17 04:30 Weight - Most Recent: 110.903 kg I&O - Last 24 Hours: Intake & Output 11/24/17 11/25/17 11/25/17 22:59 06:59 14:59 Intake Total 600 Balance 600 Lab Results Last 24 Hours: Laboratory Results - last 24 hr 11/24/17 11/24/17 11/25/17 Range/Units 13:20 17:45 06:20 Sodium 142 (135-145) mmol/L Potassium 3.5 (3.5-5.3) mmol/L Chloride 101 (100-110) mmol/L Carbon Dioxide 35 H (21-32) mmol/L BUN 17 (7-18) mg/dL Creatinine 0.8 (0.55-1.02) mg/dL Est Cr Clr Drug Dosing 59.73 mL/min Estimated GFR (MDRD) > 60 (>60) BUN/Creatinine Ratio 21.3 H (9-20) Glucose 96 (80-116) mg/dL POC Glucose 127 H 174 H (80-116) mg/dL Calcium 9.0 (8.6-10.2) mg/dL 11/25/17 Range/Units 06:24 Sodium (135-145) mmol/L Potassium (3.5-5.3) mmol/L Chloride (100-110) mmol/L Carbon Dioxide (21-32) mmol/L BUN (7-18) mg/dL Creatinine (0.55-1.02) mg/dL Est Cr Clr Drug Dosing mL/min Estimated GFR (MDRD) (>60) BUN/Creatinine Ratio (9-20) Glucose (80-116) mg/dL POC Glucose 103 (80-116) mg/dL Calcium (8.6-10.2) mg/dL Med Orders - Current: Current Medications Acetaminophen (Tylenol) 650 mg PO Q4H PRN PRN Reason: pain Last Admin: 11/24/17 22:23 Dose: 650 mg Albuterol/Ipratropium (Duoneb 3.0-0.5 Mg/3 Ml) 3 ml NEB Q6H PRN PRN Reason: Wheezing Amiodarone HCl (Cordarone) 100 mg PO DAILY [facility] Last Admin: 11/25/17 08:41 Dose: 100 mg Atorvastatin Calcium (Lipitor) 40 mg PO DAILY@1000 [facility] Last Admin: 11/25/17 09:35 Dose: 40 mg Ceftriaxone Sodium (Rocephin) 1,000 mg IVPUSH Q24H [facility] Last Admin: 11/24/17 19:50 Dose: 1,000 mg Clobetasol Propionate (Clobetasol Propionate 0.05%) 0 gm TOP BID [facility] Last Admin: 11/25/17 08:41 Dose: 1 applic Ezetimibe (Zetia) 10 mg PO DAILY@1800 [facility] Last Admin: 11/24/17 17:58 Dose: 10 mg Furosemide (Lasix) 40 mg PO BIDDIURETIC [facility] Last Admin: 11/25/17 08:41 Dose: 40 mg Insulin Detemir (Levemir) 42 unit SUBCUT BEDTIME [facility] Last Admin: 11/24/17 22:19 Dose: 42 units Insulin Human Lispro (Humalog) 0 unit SUBCUT TIDMEALS [facility]; Protocol Last Admin: 11/25/17 07:14 Dose: Not Given Melatonin (Melatonin) 10 mg PO BEDTIME [facility] Last Admin: 11/24/17 22:21 Dose: 10 mg Metformin HCl (Glucophage) 1,000 mg PO BID@1000,1800 [facility] Last Admin: 11/25/17 09:35 Dose: 1,000 mg Metoprolol Succinate (Toprol Xl) 100 mg PO DAILY [facility] Last Admin: 11/25/17 08:42 Dose: 100 mg Multivitamins/Minerals/Vitamin C (Tab-A-Driss) 1 tab PO DAILY [facility] Last Admin: 11/25/17 08:42 Dose: 1 tab Rivaroxaban (Xarelto) 20 mg PO WITHDINNER [facility] Last Admin: 11/24/17 17:58 Dose: 20 mg Sertraline HCl (Zoloft) 50 mg PO BEDTIME [facility] Last Admin: 11/24/17 22:21 Dose: 50 mg Sodium Chloride (Saline Flush) 10 ml FLUSH ASDIRECTED PRN PRN Reason: Keep Vein Open Last Admin: 11/24/17 19:57 Dose: 10 ml Discontinued Medications Furosemide (Lasix) 40 mg IVPUSH NOW ONE Stop: 11/20/17 15:39 Last Admin: 11/20/17 15:54 Dose: 40 mg Furosemide (Lasix) Confirm Administered Dose 40 mg .ROUTE .STK-MED ONE Stop: 11/20/17 15:53 Last Admin: 11/20/17 16:36 Dose: Not Given Furosemide (Lasix) 40 mg IVPUSH NOW ONE Stop: 11/20/17 19:57 Last Admin: 11/20/17 21:13 Dose: 40 mg Furosemide (Lasix) 40 mg IVPUSH BIDDIURETIC [facility] Last Admin: 11/24/17 11:02 Dose: Not Given Nitroglycerin/Dextrose (Nitroglycerin 25 Mg/D5w 250 Ml) 25 mg in 250 mls @ 6 mls/hr IV TITRATE [facility]; Protocol Last Admin: 11/21/17 15:20 Dose: 10 mcg/min, 6 mls/hr Sodium Chloride (Normal Saline) 1,000 mls @ 75 mls/hr IV ASDIRECTED [facility] Last Infusion: 11/20/17 15:41 Dose: 35 mls/hr Sodium Chloride (Normal Saline) 1,000 mls @ 30 mls/hr IV ASDIRECTED [facility] Last Admin: 11/21/17 15:19 Dose: 30 mls/hr Insulin Aspart (Novolog) 0 unit SUBCUT TIDMEALS [facility]; Protocol Last Admin: 11/21/17 13:56 Dose: Not Given Insulin Human Lispro (Humalog) 0 unit SUBCUT TIDMEALS [facility]; Protocol - Exam Quality Assessment: Supplemental Oxygen General: Alert Neck: Supple Lungs: Clear to Auscultation Cardiovascular: Regular Rate - Problem List & Annotations (1) Acute exacerbation of CHF (congestive heart failure) SNOMED Code(s): 80132114 Code(s): I50.9 - HEART FAILURE, UNSPECIFIED Status: Acute Priority: High Current Visit: Yes Qualifiers: Heart failure type: diastolic Qualified Code(s): I50.33 - Acute on chronic diastolic (congestive) heart failure Annotation/Comment:: Admit to ICU (2) Cellulitis SNOMED Code(s): 194956226 Code(s): L03.90 - CELLULITIS, UNSPECIFIED Status: Acute Current Visit: No Qualifiers: Site of cellulitis: extremity Site of cellulitis of extremity: lower extremity Laterality: left Qualified Code(s): L03.116 - Cellulitis of left lower limb (3) 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, NYHA class 2 SNOMED Code(s): 63447969, 114088292, 435445549 Code(s): I10 - ESSENTIAL (PRIMARY) HYPERTENSION; I50.40 - UNSP COMBINED SYSTOLIC AND DIASTOLIC (CONGESTIVE) HRT FAIL Status: Acute Current Visit: No (4) Afib SNOMED Code(s): 02372756 Code(s): I48.91 - UNSPECIFIED ATRIAL FIBRILLATION Status: Chronic Current Visit: No Qualifiers: Atrial fibrillation type: paroxysmal Qualified Code(s): I48.0 - Paroxysmal atrial fibrillation Annotation/Comment:: Stable,on anticoagulation (5) Anxiety SNOMED Code(s): 75356327 Code(s): F41.9 - ANXIETY DISORDER, UNSPECIFIED Status: Chronic Current Visit: No Annotation/Comment:: (6) CAD, multiple vessel SNOMED Code(s): 693623442 Code(s): I25.10 - ATHSCL HEART DISEASE OF [place] CORONARY ARTERY W/O ANG PCTRS Status: Chronic Current Visit: No (7) Hyperlipidemia associated with type 2 diabetes mellitus SNOMED Code(s): 073163840651, 373691237476 Code(s): E11.69 - TYPE 2 DIABETES MELLITUS WITH OTHER SPECIFIED COMPLICATION ; E78.5 - HYPERLIPIDEMIA, UNSPECIFIED Status: Chronic Current Visit: No (8) Morbid obesity with BMI of 40.0-44.9, adult SNOMED Code(s): 663637169 Code(s): E66.01 - MORBID (SEVERE) OBESITY DUE TO EXCESS CALORIES; Z68.41 - BODY MASS INDEX (BMI) 40.0-44.9, ADULT Status: Chronic Current Visit: No (9) KHANG (obstructive sleep apnea) SNOMED Code(s): 15856636 Code(s): G47.33 - OBSTRUCTIVE SLEEP APNEA (ADULT) (PEDIATRIC) Status: Acute Current Visit: Yes - Problem List Review Problem List Initiated/Reviewed/Updated: Yes - My Orders Last 24 Hours: My Active Orders 11/24/17 09:00 Furosemide [Lasix] 40 mg PO BIDDIURETIC - Plan Plan:: Jennifer probably has obstructive sleep apnea. She will benefit from a polysomnogram as an outpatient. Tolerating oral Lasix,plan to discharge today.
--- NOTE | 2017-11-25 10:41 | DISCH ---
DISCHARGE DATE: 11/25/2017 REASON FOR ADMISSION: 1. Acute pulmonary edema. 2. Type 2 diabetes. 3. Coronary artery disease. 4. Atrial fibrillation. 5. Malignant hypertension. 6. Obesity. 7. Cellulitis. DISCHARGE DIAGNOSES: 1. Acute pulmonary edema. 2. Type 2 diabetes. 3. Coronary artery disease. 4. Atrial fibrillation. 5. Malignant hypertension. 6. Obesity. 7. Cellulitis. 8. Anxiety. 9. Mild aortic stenosis. 10.Obstructive apnea. CONSULTATIONS: None. PROCEDURES: Echocardiogram. BRIEF HISTORY AND HOSPITAL COURSE: Jennifer is a 66-year-old female who came in with worsening shortness of breath after a short period of time. She was found to have pulmonary edema based on chest x-ray findings and BNP. She is known to have atrial fibrillation and coronary artery disease. She was started on nitroglycerin drip. Her blood pressure was very high on admission and Lasix. Over the next few days, she diuresed very well, nitroglycerin drip was discontinued after 48 hours. She was moved out of ICU after three days to medical floor on IV Lasix which was changed to oral 40 mg b.i.d. on the day prior to discharge. On the , she felt deemed ready to go home. She was noted during the hospital stay to have apnea during sleep and hypoxia and needed oxygenation for 24 hours. Because of that, she will need to continue home O2, and also have an outpatient polysomnogram. In addition, she will need a basic profile in about a week with her PCP to determine what she needs to take for diuretics. DISCHARGE MEDICATIONS: She went home on Lasix 40 mg twice a day. I will send her home on albuterol HFA two puffs q.6 hours p.r.n. and home oxygen. The rest of the home medications will be continued as previously prescribed, and the followin. Amiodarone 200 mg daily. 2. Acetaminophen 650 mg q.4 hours p.r.n. 3. Zetia 10 mg a day. 4. Levemir 42 units at bedtime. 5. Humalog p.r.n. 6. Melatonin 5 mg at bedtime. 7. Metformin 1000 mg b.i.d. 8. Metoprolol 100 mg daily. 9. Xarelto 10 mg a day. 10.Sertraline 50 mg at bedtime. 11.Lipitor 40 mg a day. 12.Losartan 50 mg a day. 13.One multivitamin a day. Please note that I spent more than 35 minutes in the discharge of the patient. /[id number] PRISCILLA/JOEY
== END 2017-11-25 12:10 | disposition home or self-care (01) | DRG 292 ==
LOC: FB.ED 14:02 → FB.ICU 15:50 → UNDOADMIN 16:24 → FB.MS 11-22 18:01 → FB.ICU 11-22 18:01 → FB.MS 11-23 10:30 → UNDODISIN 11-25 12:10
PROVIDERS: ADMIT Family Medicine; ATTEND Family Medicine
DX: I11.0 Hypertensive heart disease with heart failure (principal); L03.116 Cellulitis of left lower limb; Z68.41 Body mass index [BMI] 40.0-44.9, adult; I50.9 Heart failure, unspecified; E11.9 Type 2 diabetes mellitus without complications; I48.0 Paroxysmal atrial fibrillation; I25.10 Atherosclerotic heart disease of native coronary artery without angina pectoris; R06.02 Shortness of breath; R07.9 Chest pain, unspecified; E66.01 Morbid (severe) obesity due to excess calories; I42.9 Cardiomyopathy, unspecified; G47.33 Obstructive sleep apnea (adult) (pediatric); Z99.81 Dependence on supplemental oxygen; Z86.718 Personal history of other venous thrombosis and embolism; E78.5 Hyperlipidemia, unspecified; I25.2 Old myocardial infarction; M10.9 Gout, unspecified; M19.90 Unspecified osteoarthritis, unspecified site; M54.9 Dorsalgia, unspecified; G89.29 Other chronic pain; F32.9 Major depressive disorder, single episode, unspecified; F41.9 Anxiety disorder, unspecified; Z95.5 Presence of coronary angioplasty implant and graft; Z85.6 Personal history of leukemia; Z85.72 Personal history of non-Hodgkin lymphomas; Z91.040 Latex allergy status; Z88.5 Allergy status to narcotic agent; Z88.0 Allergy status to penicillin; Z88.8 Allergy status to other drugs, medicaments and biological substances; Z79.01 Long term (current) use of anticoagulants; Z79.4 Long term (current) use of insulin; Z91.048 Other nonmedicinal substance allergy status; Z96.659 Presence of unspecified artificial knee joint
CPT/HCPCS: 36415; 71045; 80053; 83880; 84484; 85025; 93005; 93010; 96374; 99285 ×2; J1940; J7030; J7050; 80048; 82962; 93306; A9270-GY; J0696

== ENCOUNTER 2019-03-29 17:47 | Emergency (ER) | payer OTHER, MEDICARE, MEDICAID ==
--- NOTE | 2019-03-29 18:34 | EDM.PDOC ---
ED HPI GENERAL MEDICAL PROBLEM - General Chief Complaint: Head Injury Stated Complaint: LACERATION ON TOP OF HEAD Time Seen by Provider: 03/29/19 17:55 Source of Information: Reports: Patient History Limitations: Reports: No Limitations - History of Present Illness INITIAL COMMENTS - FREE TEXT/NARRATIVE: pt brought in from Urgent care Was at [facility]; putting grocery away when she hit her head on the car. Immediately there was a gush of blood she bled over her face close. Started feeling lightheaded and dizzy. There was no loss of consciousness. Feeling more tired patient is on a blood thinner Eloquis. Has concern for skull fracture or scalp hematoma Onset: Today, Sudden Onset Date: 03/29/19 Onset Time: 17:00 Duration: Getting Worse Location: Reports: Head Quality: Reports: Ache, Dull Severity: Moderate Improves with: Reports: Cold Therapy Worsens with: Reports: Movement Context: Reports: Trauma Associated Symptoms: Reports: Headaches, Other (Lightheadedness) top of head Pain Score (Numeric/FACES): 4 - Related Data Allergies Allergy/AdvReac Type Severity Reaction Status Date / Time adhesive Allergy Severe Hives Verified 11/20/17 15:37 diclofenac sodium Allergy Severe Hives Verified 11/20/17 15:37 [From Voltaren] morphine Allergy Severe Hives Verified 11/20/17 15:37 Penicillins Allergy Severe Hives Verified 11/20/17 15:37 latex Allergy Unknown UNKNOWN Verified 11/20/17 15:37 Home Meds: Home Meds Allopurinol [Zyloprim] 150 mg PO DAILY 05/09/13 [History] Cholecalciferol (Vitamin D3) [Vitamin D3] 1,000 unit PO 1800 05/09/13 [History] metFORMIN [Glucophage] 1,000 mg PO 05/09/13 [History] Nitroglycerin [Nitrostat] 0.4 mg PO ASDIRECTED PRN 01/10/15 [History] Multivitamin [Daily Multiple Vitamin] 1 tab PO DAILY 02/24/15 [History] Insulin Aspart [NovoLOG] 12 unit SUBCUT TIDMEALS pen 01/30/16 [Rx] Losartan [Cozaar] 50 mg PO DAILY 11/20/17 [History] Amiodarone [Cordarone] 100 mg PO DAILY tablet 11/25/17 [Rx] Ezetimibe [Zetia] 10 mg PO DAILY@1800 tablet 11/25/17 [Rx] Furosemide [Lasix] 40 mg PO BIDDIURETIC #30 tablet 11/25/17 [Rx] Insulin Detemir [Levemir] 42 unit SUBCUT BEDTIME #0 pen 11/25/17 [Rx] Melatonin 10 mg PO BEDTIME tablet 11/25/17 [Rx] Metoprolol Succinate [Toprol XL 100mg] 100 mg PO DAILY tab.er 11/25/17 [Rx] Rivaroxaban [Xarelto] 20 mg PO WITHDINNER tablet 11/25/17 [Rx] Sertraline [Zoloft] 50 mg PO BEDTIME tablet 11/25/17 [Rx] atorvaSTATin [Lipitor] 40 mg PO DAILY@1000 tablet 11/25/17 [Rx] Albuterol [Ventolin HFA] 2 puff INH Q4HR PRN 01/04/18 [History] Magnesium Oxide 400 mg PO BID #30 tablet 01/05/18 [Rx] Doxycycline Hyclate 100 mg PO BID #20 tablet 03/29/19 [Rx] Past Medical History HEENT History: Reports: Impaired Vision Cardiovascular History: Reports: Afib, CAD, Cardiomyopathy, Heart Failure, Heart Murmur, High Cholesterol, Hypertension, ID, PTCA, SOB on Exertion, Stents Other Cardiovascular History: Electrocardioversion 05/26/14 and 07/05/14 Respiratory History: Reports: Other (See Below) Other Respiratory History: severe restrictive lung disease-11/19/15 with FVC 1.46L, 42% predicted. FEV1 1.16L, 45% predicted. Ratio 82. Genitourinary History: Reports: Renal Disease Musculoskeletal History: Reports: Arthritis, Back Pain, Chronic, Gout, Other ( See Below) Other Musculoskeletal History: Arthritis in hands & knees. Is hoping to have R knee replaced this year. Neurological History: Reports: Neuropathy, Diabetic Psychiatric History: Reports: Anxiety, Depression Endocrine/Metabolic History: Reports: Diabetes, Type II, IDDM, Obesity/BMI 30+ Hematologic History: Reports: Anticoagulation Therapy, Blood Transfusion(s), Iron Deficiency Other Hematologic History: hodgkins disease, leukemia Oncologic (Cancer) History: Reports: Leukemia, Non-Hodgkin's Lymphoma Dermatologic History: Reports: Cellulitis, Other (See Below) Other Dermatologic History: has ecchymotic area inner aspect L lower leg - Infectious Disease History Infectious Disease History: Reports: Chicken Pox, Measles, Mumps - Past Surgical History HEENT Surgical History: Reports: Tonsillectomy Cardiovascular Surgical History: Reports: Coronary Artery Stent, Percutaneous Transluminal Angioplasty Musculoskeletal Surgical History: Reports: Knee Replacement Oncologic Surgical History: Reports: Bone Marrow Aspiration Other Oncologic Surgeries/Procedures: in remission since 2009 (leukemia), NonHodgkin's lymphoma 30 years ago Social & Family History - Family History Cardiac: Reports: Other (See Below) Other Cardiac Family History: heart problems - Caffeine Use Caffeine Use: Reports: Coffee - Living Situation & Occupation Living situation: Reports: , Alone Occupation: Disabled ED ROS GENERAL - Review of Systems Review Of Systems: See Below Constitutional: Reports: No Symptoms, Fatigue HEENT: Reports: No Symptoms. Denies: Ear Discharge, Ear Pain, Eye Pain, Nosebleed, Nose Pain Respiratory: Reports: No Symptoms Cardiovascular: Reports: Lightheadedness Endocrine: Reports: No Symptoms GI/Abdominal: Reports: No Symptoms Musculoskeletal: Denies: Neck Pain, Shoulder Pain, Arm Pain Skin: Reports: Wound (Laceration on her scalp) Neurological: Reports: Dizziness, Headache. Denies: Trouble Speaking, Weakness Psychiatric: Denies: Confusion Hematologic/Lymphatic: Reports: No Symptoms Immunologic: Reports: No Symptoms ED EXAM, HEAD INJURY - Physical Exam Exam: See Below Text/Narrative:: Patient is alert and oriented x 3. responsive to questions appropriately Exam Limited By: No Limitations General Appearance: Alert, WD/WN, No Apparent Distress Head: Scalp Tenderness, Active Bleeding Nexus Criteria: No: Posterior, Midline Cervical Tenderness, Evidence of Intoxication Eyes: Bilateral Eye: EOMI Ears: Normal External Exam, Normal TMs Nose: Normal Inspection Throat/Mouth: Normal Inspection Neck: Non-Tender, Full Range of Motion Respiratory: No Respiratory Distress, Lungs Clear Cardiovascular: Regular Rate, Rhythm Extremities: Normal Inspection, Normal Range of Motion Neurologic: No Motor/Sensory Deficits, Alert, Normal Mood/Affect, Oriented x 3 - Rob Coma Score Best Eye Response (Rob): (4) Open Spontaneously Best Verbal Response ([place]): (5) Oriented Best Motor Response (Rob): (6) Obeys Commands ED LACERATION/WOUND & MAJO PROC - Laceration/Wound Repair Head Lac/wound length in cm: 2.5 Appearance: Superficial, Clean Anesthetic Type: Other (none) Skin Prep: Chlorhexidine (Hibiciens) Exploration/Debridement/Repair: Wound Explored Closed with: [place] (9) Tetanus Status Addressed: Yes Complications: No Course - Vital Signs Last Recorded V/S: Last Vital Signs Temp 36.4 C 03/29/19 17:47 Pulse 58 L 03/29/19 19:16 Resp 18 03/29/19 19:16 BP 154/70 H 03/29/19 19:16 Pulse Ox 99 03/29/19 19:16 - Orders/Labs/Meds Orders: Active Orders 24 hr Category Date Time Status Vaccines to be Administered [RC] PER UNIT ROUTINE Care 03/29/19 19:01 Active Head wo Cont [CT] Stat Exams 03/29/19 18:43 Taken Meds: Medications Discontinued Medications Generic Name Dose Route Start Last Admin Trade Name Tobin PRN Reason Stop Dose Admin Diphtheria/Tetanus/Acell Pertussis 0.5 ml 03/29/19 19:01 03/29/19 19:07 Adacel IM 03/29/19 19:02 0.5 ml .ONCE ONE Administration Doxycycline Hyclate 100 mg 03/29/19 19:10 03/29/19 19:15 Vibra-Tabs PO 03/29/19 19:11 100 mg ONETIME ONE Administration Departure - Departure Time of Disposition: 19:16 Disposition: Home, Self-Care 01 Clinical Impression: Concussion with no loss of consciousness, Scalp laceration - Discharge Information *PRESCRIPTION DRUG MONITORING PROGRAM REVIEWED*: Not Applicable *COPY OF PRESCRIPTION DRUG MONITORING REPORT IN PATIENT ADA: Not Applicable Prescriptions: Doxycycline Hyclate 100 mg PO BID #20 tablet Instructions: Concussion, Adult, [id number], Doxycycline tablets or capsules , Head Injury, Adult, [id number], VIS, Tetanus, Diphtheria, and Pertussis ( Tdap) - CDC (08/01/2014) Referrals: Jonathan Pena MD [Primary Care Provider] - Forms: ED Department Discharge Additional Instructions: [place] removal in 10 days Keep area clean and dry ok to take tylenol for headache - My Orders Last 24 Hours: My Active Orders 03/29/19 18:43 Head wo Cont [CT] Stat 03/29/19 19:01 Vaccines to be Administered [RC] PER UNIT ROUTINE - Assessment/Plan Last 24 Hours: My Active Orders 03/29/19 18:43 Head wo Cont [CT] Stat 03/29/19 19:01 Vaccines to be Administered [RC] PER UNIT ROUTINE
[2019-03-29] MEDS ORDERED: Diphtheria,Pertussis(Acell),Tetanus Vaccine 0.5 ML SDV IM ONE (19:01)
[2019-03-29] MEDS ORDERED: Doxycycline 100 MG Tab PO ONE (19:10)
[2019-03-29 19:17] VITALS: BP 154/70; PULSE 58
--- NOTE | 2019-03-30 09:20 | CT ---
INDICATION: Head injury - hit on top of the head when the wind caught the trunk lid of her car. Patient on blood thinners. No headache or dizziness. CT HEAD WITHOUT CONTRAST: Spiral 3.75 mm axial sections were obtained through the brain without contrast, with sagittal and coronal reconstructions, 03/29/19 - no comparisons. Total exam DLP = 1,296.53 mGy-cm. Paranasal sinuses and mastoid air cells are well-aerated. Orbits appear to be intact. Calcifications are noted in the internal carotid and vertebral arteries. Probable old lacunar infarct noted at the right thalamus. There are some minimal patchy decreased density periventricular abnormalities, compatible with a mild degree of microvascular disease, although other cause of leukoencephalopathy cannot be excluded. No shift of midline structures or ventricular abnormalities were seen. No evidence of bleeding site, hematoma, or cranial fracture site was identified. Skin sutures are noted for scalp laceration near the midline and to the left in the area of the parietal bone. IMPRESSION: 1. No acute intracranial abnormality. 2. Cerebrovascular disease with periventricular white matter changes, compatible with mild microvascular disease - correlate clinically, as other cause of leukoencephalopathy cannot be excluded. 3. Probable old lacunar infarct of small size at the right thalamus. Report was called to Dr. Mohamud at 1910 hours on 03/29/19. [facility]
== END 2019-03-29 19:17 | disposition home or self-care (01) ==
LOC: FB.ED 17:47
DX: S06.0X0A Concussion without loss of consciousness, initial encounter (principal); S01.01XA Laceration without foreign body of scalp, initial encounter; I10 Essential (primary) hypertension; I25.2 Old myocardial infarction; I25.10 Atherosclerotic heart disease of native coronary artery without angina pectoris; E78.5 Hyperlipidemia, unspecified; E11.40 Type 2 diabetes mellitus with diabetic neuropathy, unspecified; F41.9 Anxiety disorder, unspecified; F32.9 Major depressive disorder, single episode, unspecified; I48.91 Unspecified atrial fibrillation; E11.9 Type 2 diabetes mellitus without complications; E66.9 Obesity, unspecified; Z23 Encounter for immunization; Z91.040 Latex allergy status; Z88.5 Allergy status to narcotic agent; Z88.0 Allergy status to penicillin; Z88.8 Allergy status to other drugs, medicaments and biological substances; Z91.048 Other nonmedicinal substance allergy status; Z79.899 Other long term (current) drug therapy; Z95.5 Presence of coronary angioplasty implant and graft; Z79.01 Long term (current) use of anticoagulants; Z79.4 Long term (current) use of insulin; W22.09XA Striking against other stationary object, initial encounter; Y92.512 Supermarket, store or market as the place of occurrence of the external cause
CPT/HCPCS: 12001; 12002; 12004; 70450; 90471; 90715; 99283; 99283-25; A9270-GY

== ENCOUNTER 2019-04-27 13:50 | Emergency (ER) | payer MEDICARE, MEDICAID ==
[2019-04-27] MEDS ORDERED: Sodium Chloride 0.9% 10 ML Syringe FLUSH PRN (14:03)
[2019-04-27] MEDS ORDERED: Albuterol/Ipratropium 3.0-0.5 MG/3 ML Neb Soln NEB ONE (14:25)
[2019-04-27] MEDS ORDERED: methylPREDNISolone Sodium Succinate 125 MG/2 ML SDV IM ONE (14:36)
--- NOTE | 2019-04-27 15:33 | EDM.PDOC ---
ED HPI GENERAL MEDICAL PROBLEM - General Chief Complaint: Respiratory Problem Stated Complaint: SOB Time Seen by Provider: 04/27/19 13:55 Source of Information: Reports: Patient History Limitations: Reports: No Limitations - History of Present Illness INITIAL COMMENTS - FREE TEXT/NARRATIVE: Patient presented to the ED because of increasing dyspnea and fatigue. She also c/o cough and cold x 1 day. denies having any fever or chills. She has h/o CHF and is taking lasix 80 mg po q am. 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 Pain Score (Numeric/FACES): 5 - Related Data Allergies Allergy/AdvReac Type Severity Reaction Status Date / Time adhesive Allergy Severe Hives Verified 04/28/19 14:55 diclofenac sodium Allergy Severe Hives Verified 04/28/19 14:55 [From Voltaren] morphine Allergy Severe Hives Verified 04/28/19 14:55 Penicillins Allergy Severe Hives Verified 04/28/19 14:55 latex Allergy Unknown UNKNOWN Verified 04/28/19 14:55 Home Meds: Home Meds Allopurinol [Zyloprim] 150 mg PO DAILY 05/09/13 [History] Cholecalciferol (Vitamin D3) [Vitamin D3] 1,000 unit PO 1800 05/09/13 [History] metFORMIN [Glucophage] 1,000 mg PO BIDMEALS 05/09/13 [History] Nitroglycerin [Nitrostat] 0.4 mg PO ASDIRECTED PRN 01/10/15 [History] Multivitamin [Daily Multiple Vitamin] 1 tab PO DAILY 02/24/15 [History] Losartan [Cozaar] 50 mg PO DAILY 11/20/17 [History] Ezetimibe [Zetia] 10 mg PO DAILY@1800 tablet 11/25/17 [Rx] Insulin Detemir [Levemir] 42 unit SUBCUT BEDTIME #0 pen 11/25/17 [Rx] Melatonin 10 mg PO BEDTIME tablet 11/25/17 [Rx] Metoprolol Succinate [Toprol XL 100mg] 100 mg PO DAILY tab.er 11/25/17 [Rx] Rivaroxaban [Xarelto] 20 mg PO WITHDINNER tablet 11/25/17 [Rx] Sertraline [Zoloft] 50 mg PO BEDTIME tablet 11/25/17 [Rx] atorvaSTATin [Lipitor] 40 mg PO DAILY@1000 tablet 11/25/17 [Rx] Albuterol [Ventolin HFA] 2 puff INH Q4HR PRN 01/04/18 [History] Amiodarone [Cordarone] 200 mg PO DAILY 04/27/19 [History] Insulin Aspart [NovoLOG] 12 unit SUBCUT TIDMEALS 04/27/19 [History] Doxycycline [Doxycycline Hyclate] 100 mg PO BID 04/28/19 [History] Fluticasone Furoate [Flonase Sensimist] 2 spray NASBOTH BID PRN 04/28/19 [ History] Furosemide [Lasix] 80 mg PO DAILY 04/28/19 [History] Past Medical History HEENT History: Reports: Cataract, Impaired Vision Cardiovascular History: Reports: Afib, CAD, Cardiomyopathy, Heart Failure, Heart Murmur, High Cholesterol, Hypertension, [place], PTCA, SOB on Exertion, Stents Other Cardiovascular History: Electrocardioversion 05/26/14 and 07/05/14 Respiratory History: Reports: Sleep Apnea, Other (See Below) Other Respiratory History: severe restrictive lung disease-11/19/15 with FVC 1.46L, 42% predicted. FEV1 1.16L, 45% predicted. Ratio 82. 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 Is hoping to have R knee replaced this year. Neurological History: Reports: Concussion, Neuropathy, Diabetic Psychiatric History: Reports: Anxiety, Depression Endocrine/Metabolic History: Reports: Diabetes, Type II, Hypothyroidism, IDDM, Obesity/BMI 30+ Hematologic History: Reports: Anticoagulation Therapy, Blood Transfusion(s), Iron Deficiency Other Hematologic History: hodgkins disease, leukemia Oncologic (Cancer) History: Reports: Leukemia, Non-Hodgkin's Lymphoma Dermatologic History: Reports: Cellulitis, Other (See Below) Other Dermatologic History: has ecchymotic area inner aspect L lower leg - Infectious Disease History Infectious Disease History: Reports: Chicken Pox, Measles, Mumps - Past Surgical History HEENT Surgical History: Reports: Cataract Surgery, Tonsillectomy Other HEENT Surgeries/Procedures: L cataract Cardiovascular Surgical History: Reports: Coronary Artery Stent, Percutaneous Transluminal Angioplasty GI Surgical History: Reports: Colonoscopy Female Surgical History: Reports: None Musculoskeletal Surgical History: Reports: Knee Replacement Other Musculoskeletal Surgeries/Procedures:: bilat knee replacement Oncologic Surgical History: Reports: Bone Marrow Aspiration Other Oncologic Surgeries/Procedures: in remission since 2009 (leukemia), NonHodgkin's lymphoma 30 years ago Social & Family History - Family History Family Medical History: Noncontributory Cardiac: Reports: Other (See Below) Other Cardiac Family History: heart problems - Tobacco Use Smoking Status *Q: Former Smoker Years of Tobacco use: 1 Used Tobacco, but Quit: Yes Month/Year Tobacco Last Used: 1970 - Caffeine Use Caffeine Use: Reports: Coffee, Soda - Recreational Drug Use Recreational Drug Use: Yes Other Recreational Drug Type: hx narcotic abuse - Living Situation & Occupation Living situation: Reports: , Alone Occupation: Disabled ED ROS GENERAL - Review of Systems Review Of Systems: See Below Constitutional: Reports: No Symptoms HEENT: Reports: No Symptoms Respiratory: Reports: Shortness of Breath, Cough Cardiovascular: Reports: No Symptoms Endocrine: Reports: No Symptoms GI/Abdominal: Reports: No Symptoms : Reports: No Symptoms Musculoskeletal: Reports: No Symptoms Skin: Reports: No Symptoms Neurological: Reports: No Symptoms Psychiatric: Reports: No Symptoms ED EXAM, GENERAL - Physical Exam Exam: See Below Exam Limited By: No Limitations General Appearance: Alert, No Apparent Distress Ears: Normal External Exam, Normal Canal, Hearing Grossly Normal, Normal TMs Nose: Normal Inspection, Normal Mucosa Throat/Mouth: Normal Inspection, Normal Lips, Normal Teeth Head: Atraumatic, Normocephalic Neck: Normal Inspection, Supple, Non-Tender, Full Range of Motion Respiratory/Chest: No Respiratory Distress, Lungs Clear, Normal Breath Sounds, No Accessory Muscle Use Cardiovascular: Normal Peripheral Pulses, Regular Rate, Rhythm, No Edema, No Gallop, No JVD, No Murmur GI/Abdominal: Normal Bowel Sounds, No Organomegaly, No Distention, No Abnormal Bruit (Female) Exam: Normal External Exam Extremities: Normal Inspection, Normal Range of Motion, Non-Tender, No Pedal Edema Course - Vital Signs Text/Narrative:: Labs/EKG/CXR was discussed with patient and with full understanding. Her Pro BNP was elevated but that's her baseline. Her oxygen saturation is 95% on RA. She is comfortable in going home after discussing treatment plan with her. She will continue with lasix 80 mg Q AM and I will add zaroxolyn 5 mg PO Q AM X 3 days and will follow up on Thursday. i emphasized to her that she can return to the ED any time if the above treatment plan doesn't wok. Last Recorded V/S: Last Vital Signs Temp 36.3 C 04/27/19 13:50 Pulse 79 04/27/19 17:07 Resp 20 04/27/19 17:07 BP 155/54 H 04/27/19 17:07 Pulse Ox 93 L 04/27/19 17:07 - Orders/Labs/Meds Labs: Laboratory Tests 04/27/19 04/27/19 04/27/19 Range/Units 14:05 14:05 14:05 WBC 8.0 (4.5-12.0) X10-3/uL RBC 4.30 (3.23-5.20) x10(6)uL Hgb 10.1 L (11.5-15.5) g/dL Hct 32.4 (30.0-51.3) % MCV 75.3 L (80-96) fL MCH 23.5 L (27.7-33.6) pg MCHC 31.2 L (32.2-35.4) g/dL RDW 17.3 H (11.5-15.5) % Plt Count 308 (125-369) X10(3)uL MPV 7.7 (7.4-10.4) fL Neutrophils % (Manual) 84 H (46-82) % Lymphocytes % (Manual) 10 L (13-37) % Monocytes % (Manual) 4 (4-12) % Eosinophils % (Manual) 2 (0-5) % Anisocytosis Few Microcytosis Moderate H Ovalocytes Few PT 11.8 H (8.7-11.1) INR 1.22 H (0.89-1.13) APTT 29.5 (24.4-33.2) SECONDS Sodium 139 (135-145) mmol/L Potassium 4.1 (3.5-5.3) mmol/L Chloride 101 (100-110) mmol/L Carbon Dioxide 27 (21-32) mmol/L BUN 11 (7-18) mg/dL Creatinine 1.0 (0.55-1.02) mg/dL Est Cr Clr Drug Dosing 46.50 mL/min Estimated GFR (MDRD) 55 L (>60) BUN/Creatinine Ratio 11.0 (9-20) Glucose 204 H D (80-116) mg/dL Calcium 8.8 (8.6-10.2) mg/dL Total Bilirubin 0.8 (0.1-1.3) mg/dL AST 21 D (5-25) IU/L ALT 25 (12-36) U/L Alkaline Phosphatase 117 H (56-112) IU/L Troponin I (<0.017-0.056) ng/mL NT-Pro-B Natriuret Pep (<=125) pg/mL Total Protein 7.9 (6.0-8.0) g/dL Albumin 3.8 (3.2-4.6) g/dL Globulin 4.1 g/dL Albumin/Globulin Ratio 0.9 04/27/19 Range/Units 14:05 WBC (4.5-12.0) X10-3/uL RBC (3.23-5.20) x10(6)uL Hgb (11.5-15.5) g/dL Hct (30.0-51.3) % MCV (80-96) fL MCH (27.7-33.6) pg MCHC (32.2-35.4) g/dL RDW (11.5-15.5) % Plt Count (125-369) X10(3)uL MPV (7.4-10.4) fL Neutrophils % (Manual) (46-82) % Lymphocytes % (Manual) (13-37) % Monocytes % (Manual) (4-12) % Eosinophils % (Manual) (0-5) % Anisocytosis Microcytosis Ovalocytes PT (8.7-11.1) INR (0.89-1.13) APTT (24.4-33.2) SECONDS Sodium (135-145) mmol/L Potassium (3.5-5.3) mmol/L Chloride (100-110) mmol/L Carbon Dioxide (21-32) mmol/L BUN (7-18) mg/dL Creatinine (0.55-1.02) mg/dL Est Cr Clr Drug Dosing mL/min Estimated GFR (MDRD) (>60) BUN/Creatinine Ratio (9-20) Glucose (80-116) mg/dL Calcium (8.6-10.2) mg/dL Total Bilirubin (0.1-1.3) mg/dL AST (5-25) IU/L ALT (12-36) U/L Alkaline Phosphatase (56-112) IU/L Troponin I 0.019 (<0.017-0.056) ng/mL NT-Pro-B Natriuret Pep 2749 H* (<=125) pg/mL Total Protein (6.0-8.0) g/dL Albumin (3.2-4.6) g/dL Globulin g/dL Albumin/Globulin Ratio Meds: Medications Discontinued Medications Generic Name Dose Route Start Last Admin Trade Name Freq PRN Reason Stop Dose Admin Albuterol/Ipratropium 3 ml 04/27/19 14:25 04/27/19 14:38 Duoneb 3.0-0.5 Mg/3 Ml NEB 04/27/19 14:26 3 ml ONETIME ONE Administration Methylprednisolone Sodium Succinate 125 mg 04/27/19 14:36 04/27/19 14:43 Solu-Medrol IM 04/27/19 14:37 125 mg ONETIME ONE Administration Sodium Chloride 10 ml 04/27/19 14:03 Saline Flush FLUSH ASDIRECTED PRN Keep Vein Open Departure - Departure Time of Disposition: 15:30 Disposition: Home, Self-Care 01 Condition: Good Clinical Impression: CHF (congestive heart failure) - Discharge Information Instructions: Methylprednisolone Solution for Injection, Heart Failure, Easy-to -Read, Albuterol; Ipratropium solution for inhalation Referrals: PCP,None [Primary Care Provider] - Forms: ED Department Discharge Additional Instructions: please discharge instructions on CHF continue lasix/furosemide 80 mg every morning Zaroxolyn 5 mg daily for 3 days follow up with your doctor next week.
[2019-04-27 20:37] VITALS: BP 155/54; PULSE 79
== END 2019-04-27 17:15 | disposition home or self-care (01) ==
LOC: FB.ED 13:50
DX: I11.0 Hypertensive heart disease with heart failure (principal); I50.9 Heart failure, unspecified; Z87.891 Personal history of nicotine dependence; I48.91 Unspecified atrial fibrillation; I25.10 Atherosclerotic heart disease of native coronary artery without angina pectoris; E78.00 Pure hypercholesterolemia, unspecified; E11.40 Type 2 diabetes mellitus with diabetic neuropathy, unspecified; F41.9 Anxiety disorder, unspecified; F32.9 Major depressive disorder, single episode, unspecified; E03.9 Hypothyroidism, unspecified; E66.9 Obesity, unspecified; Z68.41 Body mass index [BMI] 40.0-44.9, adult; Z85.71 Personal history of Hodgkin lymphoma; Z79.4 Long term (current) use of insulin; Z79.899 Other long term (current) drug therapy; Z91.09 Other allergy status, other than to drugs and biological substances; Z88.5 Allergy status to narcotic agent; Z88.0 Allergy status to penicillin; Z91.040 Latex allergy status
CPT/HCPCS: 36415; 71045; 80053; 83880; 84484; 85025; 85610; 85730; 93005; 94640; 96372; 99285; J2930; 93010; 99284; J7620-GY

== ENCOUNTER 2019-05-03 08:31 | Day surgery (SDC) | payer MEDICARE, MEDICAID ==
[2019-05-03] MEDS ORDERED: Midazolam 1 MG/ML 2 ML SDV IV ONE (08:32)
[2019-05-03] MEDS ORDERED: Sodium Chloride 0.9% 10 ML Syringe FLUSH PRN (08:45)
[2019-05-03] MEDS ORDERED: Lactated Ringers 1,000 ML IV SCH (08:45)
[2019-05-03] MEDS ORDERED: acetaZOLAMIDE 500 MG Cap.ER PO ONE (11:00)
[2019-05-03 15:16] VITALS: BP 153/72; PULSE 72
--- NOTE | 2019-05-04 09:19 | OR ---
DATE OF OPERATION: 05/03/2019 SURGEON: Rachel Dolan MD PREOPERATIVE DIAGNOSIS: Visually significant cataract, right eye. POSTOPERATIVE DIAGNOSIS: Visually significant cataract, right eye. PROCEDURES PERFORMED: Phacoemulsification with intraocular lens placement, right eye. ASSISTANTS: None. ANESTHESIA: Local with sedation. COMPLICATIONS: None. BLOOD LOSS: None. IMPLANTS: Cresencio [id number] 22.0 diopter lens implanted. CDE: 3.24. DESCRIPTION OF PROCEDURE: After risks and benefits were reviewed with the patient, consent was obtained in the preoperative area, and the operative eye was marked with a surgical pen. In the preoperative area, a pledget was used to dilate the pupil consisting of a mixture of phenylephrine 10%, cyclopentolate 2%, moxifloxacin 0.5%, and bupivacaine 0.75%. The patient was taken to the operating room, where a time-out was performed, and the patient was placed under monitored anesthesia care. Topical tetracaine was used for anesthesia. The operative eye was prepped and draped for ophthalmic surgery, and the microscope was brought into position and focussed. A paracentesis incision was made, followed by injection of preservative-free 1% lidocaine into the anterior chamber, followed by injection of Viscoat into the anterior chamber. A microkeratome blade was used to make a corneal limbal incision temporarily. A cystotome was used to make the beginning of the capsulorrhexis, which was carried around 360 degrees in a curvilinear fashion using Utrata forceps. A Lopez cannula with BSS was used to hydrodissect and hydrodelineate the nucleus. The nucleus was removed in a divide and conquer manner using phacoemulsification. Irrigation and aspiration were used to remove the remaining cortical material. Provisc was used to inflate the capsular bag, and a pre-loaded Cresencio AU00T0 22.0 diopter lens, serial number [id number] was injected into the capsular bag. A Sinskey hook was used to position and center the lens. Next, irrigation and aspiration was used to remove any remaining viscoelastic and cortical material from the anterior chamber. BSS on a cannula was used to inflate the anterior chamber and hydrate the wound. The wound was checked and found to be watertight. 1 mg of Moxifloxacin was injected into the anterior chamber. Drapes were removed and the eye was cleaned. A drop of brimonidine 0.15% and a drop of TobraDex was placed. The eye was shielded, and the patient was taken to the recovery room in stable condition. /[id number] IMELDA/JOEY CC: SHARRI CHARLES MD
== END 2019-05-03 11:38 | disposition home or self-care (01) ==
LOC: FB.SDS 08:31
PROVIDERS: ATTEND Ophthalmology
DX: E11.36 Type 2 diabetes mellitus with diabetic cataract (principal); J44.9 Chronic obstructive pulmonary disease, unspecified; M10.9 Gout, unspecified; E78.5 Hyperlipidemia, unspecified; M17.11 Unilateral primary osteoarthritis, right knee; I11.0 Hypertensive heart disease with heart failure; I50.32 Chronic diastolic (congestive) heart failure; I25.10 Atherosclerotic heart disease of native coronary artery without angina pectoris; M47.819 Spondylosis without myelopathy or radiculopathy, site unspecified; Z79.4 Long term (current) use of insulin; Z79.01 Long term (current) use of anticoagulants; Z88.0 Allergy status to penicillin; Z88.5 Allergy status to narcotic agent; Z91.048 Other nonmedicinal substance allergy status; Z88.6 Allergy status to analgesic agent; Z91.040 Latex allergy status
CPT/HCPCS: 82962; A9270-GY; J2250; J7120

== ENCOUNTER 2019-10-20 15:16 | Inpatient (IN) | payer MEDICARE, MEDICAID, OTHER ==
[2019-10-20] MEDS ORDERED: Furosemide 40 MG/4 ML VIAL IVPUSH STA (15:34)
[2019-10-20] MEDS ORDERED: Furosemide 40 MG/4 ML VIAL IVPUSH SCH (15:45)
--- NOTE | 2019-10-20 16:48 | PCM.HP.2 ---
H&P History of Present Illness - General Date of Service: 10/20/19 Admit Problem/Dx: Admission Diagnosis/Problem Admission Diagnosis/Problem Anemia Source of Information: Patient, Provider - History of Present Illness Initial Comments - Free Text/Narative: Jennifer present to [facility] today with 2 week history of shortness of breath, increased weight gain 20 lbs, swelling in her legs above her knees, weakness. Her hemoglobin in clinic came back 7.3, Cr 2.3, was called by Dr Pena on direct admission. She has not been out in public and no known COVID contacts. No chest pain, fevers, chills, sinus congestion, cough. No nausea, vomiting, constipation or diarrhea. Last bowel movement was yesterday. She takes Lasix 40 mg bid but nothing for increased weight gain. Has not had transfusion in a few years, history of Iron deficiency anemia, was taken off Iron as it got too high. History of Atrial fibrillation, CAD, CHF, Diabetes, COPD uses inhalers but is not on oxygen. - Related Data Allergies/Adverse Reactions: Allergies Allergy/AdvReac Type Severity Reaction Status Date / Time adhesive Allergy Severe Hives Verified 10/20/19 17:00 diclofenac sodium Allergy Severe Hives Verified 10/20/19 17:00 [From Voltaren] latex Allergy Severe Hives Verified 10/20/19 17:00 morphine Allergy Severe Hives Verified 10/20/19 17:00 Penicillins Allergy Severe Hives Verified 10/20/19 17:00 Home Medications: Home Meds allopurinoL [Zyloprim] 150 mg PO DAILY 05/09/13 [History] metFORMIN [Glucophage] 1,000 mg PO BIDMEALS 05/09/13 [History] Multivitamin [Daily Multiple Vitamin] 1 tab PO DAILY 02/24/15 [History] Losartan [Cozaar] 50 mg PO DAILY 11/20/17 [History] Ezetimibe [Zetia] 10 mg PO DAILY@1800 tablet 11/25/17 [Rx] Insulin Detemir [Levemir] 42 unit SUBCUT BEDTIME #0 pen 11/25/17 [Rx] Melatonin 10 mg PO BEDTIME tablet 11/25/17 [Rx] Metoprolol Succinate [Toprol XL 100mg] 100 mg PO DAILY tab.er 11/25/17 [Rx] Sertraline [Zoloft] 50 mg PO BEDTIME tablet 11/25/17 [Rx] atorvaSTATin [Lipitor] 40 mg PO DAILY@1000 tablet 11/25/17 [Rx] Albuterol [Ventolin HFA] 2 puff INH Q4HR PRN 01/04/18 [History] Amiodarone [Cordarone] 200 mg PO DAILY 04/27/19 [History] Insulin Aspart [NovoLOG] 12 unit SUBCUT BIDMEALS 04/27/19 [History] Furosemide [Lasix] 40 mg PO BID 04/28/19 [History] Acetaminophen [Tylenol Extra Strength] 1,000 mg PO Q4H PRN 10/20/19 [History] Albuterol/Ipratropium [DuoNeb 3.0-0.5 MG/3 ML] 3 ml INH Q6H PRN 10/20/19 [ History] Cholecalciferol (Vitamin D3) [Vitamin D3] 1,000 unit PO 1800 10/20/19 [History] Fluticasone Furoate [Flonase Sensimist] 2 spray NS BID 10/20/19 [History] Nitroglycerin [Nitrostat] 0.4 mg SL Q5M PRN 10/20/19 [History] Rivaroxaban [Xarelto] 20 mg PO WITHDINNER 10/20/19 [History] Past Medical History HEENT History: Reports: Cataract, Impaired Vision Cardiovascular History: Reports: Afib, CAD, Cardiomyopathy, Heart Failure, Heart Murmur, High Cholesterol, Hypertension, [place], PTCA, SOB on Exertion, Stents Other Cardiovascular History: Electrocardioversion 05/26/14 and 07/05/14 Respiratory History: Reports: Sleep Apnea, Other (See Below) Other Respiratory History: severe restrictive lung disease-11/19/15 with FVC 1.46L, 42% predicted. FEV1 1.16L, 45% predicted. Ratio 82. 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 Is hoping to have R knee replaced this year. Neurological History: Reports: Concussion, Neuropathy, Diabetic Psychiatric History: Reports: Anxiety, Depression Endocrine/Metabolic History: Reports: Diabetes, Type II, Hypothyroidism, IDDM, Obesity/BMI 30+ Hematologic History: Reports: Anticoagulation Therapy, Blood Transfusion(s), Iron Deficiency Other Hematologic History: hodgkins disease, leukemia Immunologic History: Reports: None Oncologic (Cancer) History: Reports: Leukemia, Non-Hodgkin's Lymphoma Dermatologic History: Reports: Cellulitis, Other (See Below) Other Dermatologic History: has ecchymotic area inner aspect L lower leg - Infectious Disease History Infectious Disease History: Reports: Chicken Pox, Measles, Mumps - Past Surgical History HEENT Surgical History: Reports: Cataract Surgery, Tonsillectomy Other HEENT Surgeries/Procedures: L cataract Cardiovascular Surgical History: Reports: Coronary Artery Stent, Percutaneous Transluminal Angioplasty GI Surgical History: Reports: Colonoscopy Female Surgical History: Reports: None Musculoskeletal Surgical History: Reports: Knee Replacement Other Musculoskeletal Surgeries/Procedures:: bilat knee replacement Oncologic Surgical History: Reports: Bone Marrow Aspiration Other Oncologic Surgeries/Procedures: in remission since 2009 (leukemia), NonHodgkin's lymphoma 30 years ago Social & Family History - Family History Family Medical History: Noncontributory Cardiac: Reports: Other (See Below) Other Cardiac Family History: heart problems - Caffeine Use Caffeine Use: Reports: Coffee, Soda - Living Situation & Occupation Living situation: Reports: , Alone Occupation: Disabled H&P Review of Systems - Review of Systems: Review Of Systems: See Below General: Reports: Fatigue. Denies: Fever, Chills HEENT: Reports: No Symptoms, Glasses Pulmonary: Reports: Shortness of Breath, Wheezing. Denies: Cough, Hemoptysis Cardiovascular: Reports: No Symptoms, Edema Gastrointestinal: Denies: Abdominal Pain, Black Stool, Bloody Stool, Constipation, Diarrhea, Nausea, Vomiting Genitourinary: Reports: No Symptoms. Denies: Hematuria Musculoskeletal: Reports: No Symptoms Skin: Reports: Pallor Psychiatric: Reports: No Symptoms Neurological: Reports: No Symptoms Hematologic/Lymphatic: Reports: Anemia Exam - Exam Exam: See Below - Exam General: Alert, Oriented, Cooperative. No: Mild Distress HEENT: PERRLA, Conjunctiva Clear, EACs Clear, EOMI, Hearing Intact, Nares Patent , Normal Nasal Septum, Posterior Pharynx Clear, TMs Clear, Other (Dry tacky mucosa ) Neck: Supple, Trachea Midline, 2 Lungs: Normal Respiratory Effort, Decreased Breath Sounds (bibasilar), Crackles (fine ), Wheezing Cardiovascular: Regular Rate, Irregular Rhythm GI/Abdominal Exam: Normal Bowel Sounds, Soft, Non-Tender, No Distention. No: Guarding, Rigid, Rebound Extremities: Pedal Edema (3+ extends from bilateral ankles to above knees) Peripheral Pulses: 2+: Radial (L), Radial (R) Skin: Warm, Dry, Intact, Other (statis dermatitis on bilateral distal legs, no erythema.) - Patient Data Lab Results Last 24 hrs: see physical chart for [place] labs. *Q Meaningful Use (ADM) - VTE *Q VTE Anticoagulation Contraindications: Med/TX Not Indicated/Need - Problem List (1) Acute exacerbation of CHF (congestive heart failure) SNOMED Code(s): 228728151, 80723256365008 ICD Code: I50.9 - HEART FAILURE, UNSPECIFIED Status: Acute Priority: High Current Visit: No Qualifiers: Heart failure type: diastolic Qualified Code(s): I50.33 - Acute on chronic diastolic (congestive) heart failure (2) Peripheral edema SNOMED Code(s): 573324491 ICD Code: R60.9 - EDEMA, UNSPECIFIED Status: Acute Current Visit: No (3) Shortness of breath SNOMED Code(s): 598802602 ICD Code: R06.02 - SHORTNESS OF BREATH Status: Acute Current Visit: No (4) Afib SNOMED Code(s): 82727366 ICD Code: I48.91 - UNSPECIFIED ATRIAL FIBRILLATION Status: Chronic Current Visit: No Qualifiers: Atrial fibrillation type: paroxysmal Qualified Code(s): I48.0 - Paroxysmal atrial fibrillation (5) Anemia SNOMED Code(s): 764268949 ICD Code: D64.9 - ANEMIA, UNSPECIFIED Status: Chronic Current Visit: No Problem Details: Hgb 7.3 Qualifiers: Anemia type: unspecified type Qualified Code(s): D64.9 - Anemia, unspecified (6) CAD, multiple vessel SNOMED Code(s): 902836629 ICD Code: I25.10 - ATHSCL HEART DISEASE OF [place] CORONARY ARTERY W/O ANG PCTRS Status: Chronic Current Visit: No (7) Chronic restrictive lung disease SNOMED Code(s): 49205843 ICD Code: J98.4 - OTHER DISORDERS OF LUNG Status: Chronic Current Visit: No (8) Hyperlipidemia associated with type 2 diabetes mellitus SNOMED Code(s): 146185748650 ICD Code: E11.69 - TYPE 2 DIABETES MELLITUS WITH OTHER SPECIFIED COMPLICATION ; E78.5 - HYPERLIPIDEMIA, UNSPECIFIED Status: Chronic Current Visit: No (9) Insulin dependent type 2 diabetes mellitus, controlled SNOMED Code(s): 881897605 ICD Code: E11.9 - TYPE 2 DIABETES MELLITUS WITHOUT COMPLICATIONS; Z79.4 - RESIDENTIAL (CURRENT) USE OF INSULIN Status: Chronic Current Visit: No Problem Details: (10) KHANG (obstructive sleep apnea) SNOMED Code(s): 81216539 ICD Code: G47.33 - OBSTRUCTIVE SLEEP APNEA (ADULT) (PEDIATRIC) Status: Chronic Current Visit: No (11) Morbid obesity with BMI of 40.0-44.9, adult SNOMED Code(s): 724414293, 20260264527549 ICD Code: E66.01 - MORBID (SEVERE) OBESITY DUE TO EXCESS CALORIES; Z68.41 - BODY MASS INDEX (BMI) 40.0-44.9, ADULT Status: Chronic Current Visit: No Problem List Initiated/Reviewed/Updated: Yes Orders Last 24hrs: Active Orders 24 hr Category Date Time Status Patient Status [ADT] Routine ADT 10/20/19 15:22 Active Antiembolic Devices [RC] .Routine Care 10/20/19 15:22 Active Blood Glucose Check, Bedside [RC] QIDACANDBED Care 10/20/19 15:22 Active Cardiac Monitoring [RC] CONTINUOUS Care 10/20/19 15:24 Active Height and Weight [RC] DAILY Care 10/20/19 15:22 Active Intake and Output [RC] QSHIFT Care 10/20/19 15:23 Active Oxygen Therapy [RC] PRN Care 10/20/19 15:22 Active Up With Assistance [RC] ASDIRECTED Care 10/20/19 15:22 Active VTE/DVT Education [RC] Per Unit Routine Care 10/20/19 15:22 Active Vital Signs [RC] Q4H Care 10/20/19 15:22 Active Consistent Carbohydrate Diet [DIET] Diet 10/20/19 Dinner Active Chest 1V Frontal [CR] Routine Exams 10/20/19 16:41 Taken BASIC METABOLIC PANEL,BMP [CHEM] Routine Lab 10/21/19 05:11 Ordered CBC WITH AUTO DIFF [HEME] Routine Lab 10/21/19 05:11 Ordered CORONAVIRUS COVID-19, APOLINAR Urgent Lab 10/20/19 15:22 Ordered OCCULT BLOOD SCREEN [OP] Routine Lab 10/20/19 15:38 Ordered RED BLOOD CELLS LP [BBK] Urgent Lab 10/20/19 15:34 Ordered TYPE AND SCREEN [BBK] Stat Lab 10/20/19 15:34 Ordered TYPE AND SCREEN [BBK] Urgent Lab 10/20/19 15:34 Ordered UA W/MICROSCOPIC [URIN] Routine Lab 10/20/19 15:22 Ordered Furosemide [Lasix] Med 10/21/19 09:00 Active 40 mg IVPUSH BID Sodium Chloride 0.9% [Normal Saline] 250 ml Med 10/20/19 15:45 Active IV ASDIRECTED Sodium Chloride 0.9% [Saline Flush] Med 10/20/19 15:22 Active 10 ml FLUSH ASDIRECTED PRN Anticoagulation Contraindications VTE [AST] Per Unit Oth 10/20/19 15:22 Ordered Routine Antiembolic Hose [OM.PC] Per Unit Routine Oth 10/20/19 15:24 Ordered Saline Lock Insert [OM.PC] Routine Oth 10/20/19 15:22 Ordered Transfuse Red Blood Cells [COMM] Urgent Oth 10/20/19 15:35 Ordered Resuscitation Status Routine Resus Stat 10/20/19 15:22 Ordered Medication Orders Furosemide (Lasix) 40 mg IVPUSH BID ALAN Sodium Chloride (Normal Saline) 250 mls @ 100 mls/hr IV ASDIRECTED ALAN Sodium Chloride (Saline Flush) 10 ml FLUSH ASDIRECTED PRN PRN Reason: Keep Vein Open Assessment/Plan Comment:: 1. Admit for Anemia 7.3; Shortness of breath, peripheral edema suspected CHF. 2. Lasix 40 mg IV now, repeat in between units of blood and repeat in am. 3. Type & Screen, transfuse 2 units of PRBCs. Repeat CBC in am. 4. Consistent carb diet, Accuchecks ac & hs. 5. Atrial fibrillation: continue Amiodarone, cardiac monitoring. 6. I&Os, daily weight, Reeder catheter for monitoring outpatient as she has incontinence. 7. DVT prophylaxis: hold Xarelto while getting occult blood, UA. 8. DNR/DNI per advance directive on file. - Mortality Measure Prognosis:: Good
[2019-10-20] MEDS: Sodium Chloride 0.9% 10 ML Syringe FLUSH PRN (16:51)
[2019-10-20] MEDS ORDERED: Albuterol/Ipratropium 3.0-0.5 MG/3 ML Neb Soln INH PRN (17:22)
[2019-10-20] MEDS ORDERED: Nitroglycerin 0.4 MG Tab.SL SL PRN (17:22)
[2019-10-20] MEDS ORDERED: Acetaminophen 500 MG Tab PO PRN (17:22)
[2019-10-20] MEDS: Sodium Chloride 0.9% 250 ML IV SCH ×2 (17:30→21:05)
[2019-10-20] MEDS: Insulin Lispro 100 Unit/ML 3 ML KwikPen SUBCUT SCH (19:12)
[2019-10-20] MEDS: Ezetimibe 10 MG Tab PO SCH (19:14)
[2019-10-20] MEDS ORDERED: Sulfamethoxazole/Trimethoprim 800-160 MG Tab PO SCH (21:00)
[2019-10-20] MEDS ORDERED: Non-Formulary Medication 1 Each (Melatonin [Melatonin] 10 MG) PO SCH (21:00)
[2019-10-20] MEDS: Fluticasone Propionate Nasal Spray 16 GM Bottle NAS SCH (22:31)
[2019-10-20] MEDS: Melatonin 3 MG Tab PO SCH (22:32)
[2019-10-20] MEDS: Sertraline 50 MG Tab PO SCH (22:33)
[2019-10-20] MEDS: Insulin Glargine,Human Rec. Analog 100 Units/ML 3 ML Pen SUBCUT SCH ×2 (22:33→23:48)
[2019-10-20] MEDS ORDERED: Furosemide 40 MG/4 ML VIAL IVPUSH ONE (23:45)
[2019-10-21] MEDS: Sodium Chloride 0.9% 10 ML Syringe FLUSH PRN ×5 (00:09→20:44)
[2019-10-21] MEDS ORDERED: Insulin Lispro 100 Unit/ML 3 ML KwikPen SUBCUT SCH (08:36)
[2019-10-21] MEDS ORDERED: Metoprolol Succinate 100 MG Tab.ER PO SCH (09:00)
[2019-10-21] MEDS ORDERED: Losartan 50 MG Tab PO SCH (09:00)
[2019-10-21] MEDS ORDERED: Furosemide 40 MG/4 ML VIAL IVPUSH SCH (09:00)
--- NOTE | 2019-10-21 09:07 | PCM.PN ---
- General Info Date of Service: 10/21/19 Subjective Update: This is a 68-year-old female was admitted for shortness of breath, CHF, and anemia she has a long history of iron deficiency anemia, and did NOT have a complete colonoscopy in 2016. She also has a history of Hodgkin's lymphoma and promyelocytic leukemia. She has CHF and atrial fibrillation and stable type 2 diabetes. She got 2 units of PRBCs yesterday hemoglobin is up to 8.8. Functional Status: Reports: Pain Controlled, Tolerating Diet. Denies: Ambulating - Review of Systems General: Reports: Weakness, Fatigue HEENT: Reports: No Symptoms Pulmonary: Reports: Shortness of Breath. Denies: Sputum, Hemoptysis, Wheezing Cardiovascular: Reports: Orthopnea, PND Gastrointestinal: Reports: No Symptoms Genitourinary: Reports: No Symptoms Musculoskeletal: Reports: Joint Pain Skin: Reports: No Symptoms Neurological: Reports: No Symptoms - Patient Data Vitals - Most Recent: Last Vital Signs Temp 98.5 F 10/21/19 04:00 Pulse 72 10/21/19 04:00 Resp 20 10/21/19 04:00 BP 117/61 10/21/19 04:00 Pulse Ox 94 L 10/21/19 04:00 Weight - Most Recent: 119.833 kg I&O - Last 24 Hours: Intake & Output 10/20/19 10/21/19 10/21/19 22:59 06:59 14:59 Intake Total 1540 460 Output Total 700 650 Balance 840 -190 Lab Results Last 24 Hours: Laboratory Results - last 24 hr 10/20/19 10/20/19 10/20/19 Range/Units 16:00 16:05 17:32 WBC (4.5-12.0) X10-3/uL RBC (3.23-5.20) x10(6)uL Hgb (11.5-15.5) g/dL Hct (30.0-51.3) % MCV (80-96) fL MCH (27.7-33.6) pg MCHC (32.2-35.4) g/dL RDW (11.5-15.5) % Plt Count (125-369) X10(3)uL MPV (7.4-10.4) fL Neut % (Auto) (46-82) % Lymph % (Auto) (13-37) % [place] % (Auto) (4-12) % Eos % (Auto) (1.0-5.0) % Baso % (Auto) (0-2) % Neut # (Auto) (1.6-8.3) # Lymph # (Auto) (0.6-5.0) # [place] # (Auto) (0.0-1.3) # Eos # (Auto) (0.0-0.8) # Baso # (Auto) (0.0-0.2) # Sodium (135-145) mmol/L Potassium (3.5-5.3) mmol/L Chloride (100-110) mmol/L Carbon Dioxide (21-32) mmol/L BUN (7-18) mg/dL Creatinine (0.55-1.02) mg/dL Est Cr Clr Drug Dosing mL/min Estimated GFR (MDRD) (>60) BUN/Creatinine Ratio (9-20) Glucose (80-116) mg/dL POC Glucose 104 (80-116) mg/dL Calcium (8.6-10.2) mg/dL Urine Color (YELLOW) Urine Appearance (CLEAR) Urine pH (5.0-6.5) Ur Specific [place] (1.010-1.025) Urine Protein (NEGATIVE) mg/dL Urine Glucose (UA) (NORMAL) mg/dL Urine Ketones (NEGATIVE) mg/dL Urine Occult Blood (NEGATIVE) Urine Nitrite (NEGATIVE) Urine Bilirubin (NEGATIVE) Urine Urobilinogen (NEGATIVE) mg/dL Ur Leukocyte Esterase (NEGATIVE) Urine RBC (0-5) Urine WBC (0-5) Ur Squamous Epith Cells (NS,R,O) Urine Bacteria (NS) SARS Virus RNA (PCR) Negative (NEGATIVE) Blood Type A POSITIVE Gel Antibody Screen Negative Crossmatch See Detail 10/20/19 10/20/19 10/21/19 Range/Units 18:10 22:38 06:05 WBC 8.1 (4.5-12.0) X10-3/uL RBC 4.17 (3.23-5.20) x10(6)uL Hgb 8.8 L (11.5-15.5) g/dL Hct 29.2 L (30.0-51.3) % MCV 70.0 L (80-96) fL MCH 21.2 L (27.7-33.6) pg MCHC 30.3 L (32.2-35.4) g/dL RDW 22.2 H (11.5-15.5) % Plt Count 277 (125-369) X10(3)uL MPV 7.1 L (7.4-10.4) fL Neut % (Auto) 73.4 (46-82) % Lymph % (Auto) 12.6 L (13-37) % [place] % (Auto) 9.4 (4-12) % Eos % (Auto) 3 (1.0-5.0) % Baso % (Auto) 1 (0-2) % Neut # (Auto) 5.9 (1.6-8.3) # Lymph # (Auto) 1.0 (0.6-5.0) # [place] # (Auto) 0.8 (0.0-1.3) # Eos # (Auto) 0.3 (0.0-0.8) # Baso # (Auto) 0.1 (0.0-0.2) # Sodium (135-145) mmol/L Potassium (3.5-5.3) mmol/L Chloride (100-110) mmol/L Carbon Dioxide (21-32) mmol/L BUN (7-18) mg/dL Creatinine (0.55-1.02) mg/dL Est Cr Clr Drug Dosing mL/min Estimated GFR (MDRD) (>60) BUN/Creatinine Ratio (9-20) Glucose (80-116) mg/dL POC Glucose 82 (80-116) mg/dL Calcium (8.6-10.2) mg/dL Urine Color Yellow (YELLOW) Urine Appearance Slightly cloudy (CLEAR) Urine pH 5.0 (5.0-6.5) Ur Specific [place] 1.015 (1.010-1.025) Urine Protein Trace (NEGATIVE) mg/dL Urine Glucose (UA) Normal (NORMAL) mg/dL Urine Ketones Negative (NEGATIVE) mg/dL Urine Occult Blood Negative (NEGATIVE) Urine Nitrite Positive H (NEGATIVE) Urine Bilirubin Negative (NEGATIVE) Urine Urobilinogen Normal (NEGATIVE) mg/dL Ur Leukocyte Esterase Negative (NEGATIVE) Urine RBC 0-5 (0-5) Urine WBC 0-5 (0-5) Ur Squamous Epith Cells Occasional (NS,R,O) Urine Bacteria Many H (NS) SARS Virus RNA (PCR) (NEGATIVE) Blood Type Gel Antibody Screen Crossmatch 10/21/19 Range/Units 06:05 WBC (4.5-12.0) X10-3/uL RBC (3.23-5.20) x10(6)uL Hgb (11.5-15.5) g/dL Hct (30.0-51.3) % MCV (80-96) fL MCH (27.7-33.6) pg MCHC (32.2-35.4) g/dL RDW (11.5-15.5) % Plt Count (125-369) X10(3)uL MPV (7.4-10.4) fL Neut % (Auto) (46-82) % Lymph % (Auto) (13-37) % [place] % (Auto) (4-12) % Eos % (Auto) (1.0-5.0) % Baso % (Auto) (0-2) % Neut # (Auto) (1.6-8.3) # Lymph # (Auto) (0.6-5.0) # [place] # (Auto) (0.0-1.3) # Eos # (Auto) (0.0-0.8) # Baso # (Auto) (0.0-0.2) # Sodium 138 (135-145) mmol/L Potassium 4.3 (3.5-5.3) mmol/L Chloride 102 (100-110) mmol/L Carbon Dioxide 28 (21-32) mmol/L BUN 35 H D (7-18) mg/dL Creatinine 2.4 H* (0.55-1.02) mg/dL Est Cr Clr Drug Dosing 19.37 mL/min Estimated GFR (MDRD) 20 L (>60) BUN/Creatinine Ratio 14.6 (9-20) Glucose 99 D (80-116) mg/dL POC Glucose (80-116) mg/dL Calcium 8.5 L (8.6-10.2) mg/dL Urine Color (YELLOW) Urine Appearance (CLEAR) Urine pH (5.0-6.5) Ur Specific [place] (1.010-1.025) Urine Protein (NEGATIVE) mg/dL Urine Glucose (UA) (NORMAL) mg/dL Urine Ketones (NEGATIVE) mg/dL Urine Occult Blood (NEGATIVE) Urine Nitrite (NEGATIVE) Urine Bilirubin (NEGATIVE) Urine Urobilinogen (NEGATIVE) mg/dL Ur Leukocyte Esterase (NEGATIVE) Urine RBC (0-5) Urine WBC (0-5) Ur Squamous Epith Cells (NS,R,O) Urine Bacteria (NS) SARS Virus RNA (PCR) (NEGATIVE) Blood Type Gel Antibody Screen Crossmatch Med Orders - Current: Current Medications Acetaminophen (Tylenol Extra Strength) 1,000 mg PO Q6H PRN PRN Reason: Pain (moderate 4-6) Albuterol/Ipratropium (Duoneb 3.0-0.5 Mg/3 Ml) 3 ml INH Q6H PRN PRN Reason: Dyspnea Allopurinol (Zyloprim) 150 mg PO DAILY [facility] Amiodarone HCl (Cordarone) 200 mg PO DAILY [facility] Atorvastatin Calcium (Lipitor) 40 mg PO DAILY@1000 [facility] Ezetimibe (Zetia) 10 mg PO DAILY@1800 [facility] Last Admin: 10/20/19 19:14 Dose: 10 mg Fluticasone Propionate (Flonase) 0 gm JACLYN BID [facility] Last Admin: 10/20/19 22:31 Dose: Not Given Furosemide (Lasix) 40 mg IVPUSH TID [facility] Insulin Glargine (Lantus Solostar) 10 units SUBCUT BEDTIME [facility] Insulin Human Lispro (Humalog) 2 unit SUBCUT TIDMEALS [facility] Melatonin (Melatonin) 9 mg PO BEDTIME [facility] Last Admin: 10/20/19 22:32 Dose: 9 mg Nitroglycerin (Nitrostat) 0.4 mg SL Q5M PRN PRN Reason: Chest Pain Sertraline HCl (Zoloft) 50 mg PO BEDTIME [facility] Last Admin: 10/20/19 22:33 Dose: 50 mg Sodium Chloride (Saline Flush) 10 ml FLUSH ASDIRECTED PRN PRN Reason: Keep Vein Open Last Admin: 10/21/19 07:44 Dose: 10 ml Discontinued Medications Acetaminophen (Tylenol Extra Strength) 1,000 mg PO Q4H PRN PRN Reason: Pain (moderate 4-6) Furosemide (Lasix) 40 mg IVPUSH BID [facility] Furosemide (Lasix) 40 mg IVPUSH BID [facility] Furosemide (Lasix) 40 mg IVPUSH NOW STA Stop: 10/20/19 15:35 Last Admin: 10/20/19 16:50 Dose: 40 mg Furosemide (Lasix) 40 mg IVPUSH NOW ONE Stop: 10/20/19 23:46 Last Admin: 10/21/19 00:07 Dose: 40 mg Sodium Chloride (Normal Saline) 250 mls @ 100 mls/hr IV ASDIRECTED [facility] Last Admin: 10/20/19 21:05 Dose: 100 mls/hr Insulin Glargine (Lantus Solostar) 42 units SUBCUT BEDTIME [facility] Last Admin: 10/20/19 23:48 Dose: Not Given Insulin Human Lispro (Humalog) 12 unit SUBCUT BIDMEALS [facility] Last Admin: 10/20/19 19:12 Dose: 12 units Insulin Human Lispro (Humalog) 12 unit SUBCUT BIDMEALS [facility] Losartan Potassium (Cozaar) 50 mg PO DAILY [facility] Metoprolol Succinate (Toprol Xl) 100 mg PO DAILY [facility] Non-Formulary Medication (Melatonin [Melatonin]) 10 mg PO BEDTIME [facility] Trimethoprim/Sulfamethoxazole (Septra Ds) 1 tab PO BID [facility] Stop: 10/23/19 09:00 Last Admin: 10/20/19 22:33 Dose: 1 tab - Exam Quality Assessment: Supplemental Oxygen General: Alert, Oriented HEENT: Pupils Equal Neck: Supple Lungs: Crackles, Rales Cardiovascular: No Murmurs, Irregular Rhythm GI/Abdominal Exam: Normal Bowel Sounds, Soft Extremities: Pedal Edema Neurological: No New Focal Deficit Psy/Mental Status: Normal Affect Sepsis Event Note - Evaluation Sepsis Screening Result: No Definite Risk - Focused Exam Vital Signs: Vital Signs Temp Temp Pulse Resp BP Pulse Ox Pulse Ox 10/21/19 04:00 98.5 F 72 20 117/61 94 L 10/21/19 01:00 98.0 F 72 20 122/71 10/21/19 00:02 97.7 F 73 20 116/73 10/21/19 00:00 97.7 F 73 20 116/73 95 10/20/19 22:00 88 L 10/20/19 21:21 98.0 F 75 20 112/64 10/20/19 21:06 98.2 F 72 20 125/66 Pulse Ox 10/21/19 04:00 10/21/19 01:00 10/21/19 00:02 10/21/19 00:00 10/20/19 22:00 88 L 10/20/19 21:21 10/20/19 21:06 Date Exam was Performed: 10/21/19 Time Exam was Performed: 09:01 - Problem List & Annotations (1) JAXSON (acute kidney injury) SNOMED Code(s): 55040525, 64608115 Code(s): N17.9 - ACUTE KIDNEY FAILURE, UNSPECIFIED Status: Acute Current Visit: Yes (2) Acute exacerbation of CHF (congestive heart failure) SNOMED Code(s): 568223434, 75197307144548 Code(s): I50.9 - HEART FAILURE, UNSPECIFIED Status: Acute Priority: High Current Visit: No Qualifiers: Heart failure type: diastolic Qualified Code(s): I50.33 - Acute on chronic diastolic (congestive) heart failure (3) Hypertension with heart disease SNOMED Code(s): 78240848 Code(s): I11.9 - HYPERTENSIVE HEART DISEASE WITHOUT HEART FAILURE Status: Acute Current Visit: No Annotation/Comment:: Admit to ICU (4) Afib SNOMED Code(s): 28135718 Code(s): I48.91 - UNSPECIFIED ATRIAL FIBRILLATION Status: Chronic Current Visit: No Qualifiers: Atrial fibrillation type: paroxysmal Qualified Code(s): I48.0 - Paroxysmal atrial fibrillation (5) Anemia SNOMED Code(s): 641230150 Code(s): D64.9 - ANEMIA, UNSPECIFIED Status: Chronic Current Visit: No Qualifiers: Anemia type: iron deficiency Annotation/Comment:: Hgb 7.3 (6) CAD, multiple vessel SNOMED Code(s): 629881714 Code(s): I25.10 - ATHSCL HEART DISEASE OF [place] CORONARY ARTERY W/O ANG PCTRS Status: Chronic Current Visit: No (7) Fibromyalgia SNOMED Code(s): 955184017 Code(s): M79.7 - FIBROMYALGIA Status: Chronic Current Visit: No Annotation/Comment:: stable (8) Insulin dependent type 2 diabetes mellitus, controlled SNOMED Code(s): 644978323 Code(s): E11.9 - TYPE 2 DIABETES MELLITUS WITHOUT COMPLICATIONS; Z79.4 - CUSTODIAL (CURRENT) USE OF INSULIN Status: Chronic Current Visit: No Annotation/Comment:: (9) Morbid obesity with BMI of 40.0-44.9, adult SNOMED Code(s): 828501028, 21739388593806 Code(s): E66.01 - MORBID (SEVERE) OBESITY DUE TO EXCESS CALORIES; Z68.41 - BODY MASS INDEX (BMI) 40.0-44.9, ADULT Status: Chronic Current Visit: No (10) KHANG (obstructive sleep apnea) SNOMED Code(s): 20782793 Code(s): G47.33 - OBSTRUCTIVE SLEEP APNEA (ADULT) (PEDIATRIC) Status: Chronic Current Visit: No (11) On amiodarone therapy SNOMED Code(s): 678321185 Code(s): Z79.899 - OTHER GUEST SERVICE AGENT (CURRENT) DRUG THERAPY Status: Chronic Current Visit: No (12) Peripheral neuropathy SNOMED Code(s): 491431961 Code(s): G62.9 - POLYNEUROPATHY, UNSPECIFIED Status: Chronic Current Visit: No Annotation/Comment:: (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) Status: Acute Current Visit: Yes (14) Hodgkin lymphoma SNOMED Code(s): 981745254 Code(s): C81.90 - HODGKIN LYMPHOMA, UNSPECIFIED, UNSPECIFIED SITE Status: Acute Current Visit: Yes - Problem List Review Problem List Initiated/Reviewed/Updated: Yes - My Orders Last 24 Hours: My Active Orders 10/21/19 09:00 Echo Comp w Cont [US] Urgent Furosemide [Lasix] 40 mg IVPUSH TID 10/21/19 12:00 Insulin Lispro [HumaLOG] 2 unit SUBCUT TIDMEALS 10/21/19 21:00 Insulin Glarg,Human.Rec.Analog [LantUS Solostar] 10 units SUBCUT BEDTIME 10/22/19 05:11 BASIC METABOLIC PANEL,BMP [CHEM] AM CBC WITH AUTO DIFF [HEME] AM PRO B-TYPE NATRIUR PEPT,BNPPRO [CHEM] DAILY TROPONIN I [CHEM] AM 10/23/19 05:11 BASIC METABOLIC PANEL,BMP [CHEM] AM CBC WITH AUTO DIFF [HEME] AM PRO B-TYPE NATRIUR PEPT,BNPPRO [CHEM] DAILY 10/24/19 05:11 BASIC METABOLIC PANEL,BMP [CHEM] AM CBC WITH AUTO DIFF [HEME] AM PRO B-TYPE NATRIUR PEPT,BNPPRO [CHEM] DAILY - Plan Plan:: I'll continue with aggressive diuresis due to recent weight gain and the fact that she received 2 units of PRBCs yesterday. We are waiting for fecal occult testing I suspect that she might have GI loss. This will be addressed after CHF and history of present illness are improved. We'll continue with current prescriptions I've stopped ANN inhibitor and beta cait because of a normal hemoglobin. Also reduced, drastically the dose of insulin. Will repeat labs in the morning.
[2019-10-21] MEDS: Insulin Lispro 100 Unit/ML 3 ML KwikPen SUBCUT SCH ×3 (09:18→18:04)
[2019-10-21] MEDS: Allopurinol 300 MG Tab PO SCH (09:36)
[2019-10-21] MEDS: Amiodarone 200 MG Tab PO SCH (09:36)
[2019-10-21] MEDS: Fluticasone Propionate Nasal Spray 16 GM Bottle NAS SCH (09:37)
[2019-10-21] MEDS: atorvaSTATin 40 MG Tab PO SCH (09:37)
[2019-10-21] MEDS: Furosemide 40 MG/4 ML VIAL IVPUSH SCH ×3 (09:38→20:50)
[2019-10-21] MEDS ORDERED: Fluticasone Propionate Nasal Spray 16 GM Bottle NAS PRN (09:48)
[2019-10-21] MEDS: Rivaroxaban 15 MG Tab PO SCH (18:03)
[2019-10-21] MEDS: Ezetimibe 10 MG Tab PO SCH (18:03)
[2019-10-21] MEDS: Insulin Glargine,Human Rec. Analog 100 Units/ML 3 ML Pen SUBCUT SCH (20:45)
[2019-10-21] MEDS: Sertraline 50 MG Tab PO SCH (20:51)
[2019-10-21] MEDS: Melatonin 3 MG Tab PO SCH (23:26)
--- NOTE | 2019-10-22 08:42 | PCM.PN ---
- General Info Date of Service: 10/22/19 Subjective Update: Jennifer feels much better today. She day rest, 1800 yesterday. Denies any chest pain. She needed oxygen overnight. Denies any fever chills but has some dysuria. Functional Status: Reports: Pain Controlled - Review of Systems General: Reports: Weakness HEENT: Reports: No Symptoms Gastrointestinal: Reports: No Symptoms Musculoskeletal: Reports: No Symptoms - Patient Data Vitals - Most Recent: Last Vital Signs Temp 98.7 F 10/21/19 23:00 Pulse 71 10/22/19 02:10 Resp 20 10/22/19 02:10 BP 111/54 L 10/22/19 02:10 Pulse Ox 94 L 10/22/19 02:10 Weight - Most Recent: 119.522 kg I&O - Last 24 Hours: Intake & Output 10/21/19 10/22/19 10/22/19 22:59 06:59 14:59 Intake Total 20 10 Output Total 700 1050 Balance -680 -1040 Lab Results Last 24 Hours: Laboratory Results - last 24 hr 10/21/19 10/21/19 10/21/19 Range/Units 11:31 18:00 20:43 WBC (4.5-12.0) X10-3/uL RBC (3.23-5.20) x10(6)uL Hgb (11.5-15.5) g/dL Hct (30.0-51.3) % MCV (80-96) fL MCH (27.7-33.6) pg MCHC (32.2-35.4) g/dL RDW (11.5-15.5) % Plt Count (125-369) X10(3)uL MPV (7.4-10.4) fL Neut % (Auto) (46-82) % Lymph % (Auto) (13-37) % [place] % (Auto) (4-12) % Eos % (Auto) (1.0-5.0) % Baso % (Auto) (0-2) % Neut # (Auto) (1.6-8.3) # Lymph # (Auto) (0.6-5.0) # [place] # (Auto) (0.0-1.3) # Eos # (Auto) (0.0-0.8) # Baso # (Auto) (0.0-0.2) # Sodium (135-145) mmol/L Potassium (3.5-5.3) mmol/L Chloride (100-110) mmol/L Carbon Dioxide (21-32) mmol/L BUN (7-18) mg/dL Creatinine (0.55-1.02) mg/dL Est Cr Clr Drug Dosing mL/min Estimated GFR (MDRD) (>60) BUN/Creatinine Ratio (9-20) Glucose (80-116) mg/dL POC Glucose 127 H 160 H 206 H (80-116) mg/dL Calcium (8.6-10.2) mg/dL Troponin I (4.0-60.3) pg/mL NT-Pro-B Natriuret Pep (<=125) pg/mL 10/22/19 10/22/19 10/22/19 Range/Units 06:25 06:25 06:25 WBC 7.6 (4.5-12.0) X10-3/uL RBC 4.05 (3.23-5.20) x10(6)uL Hgb 8.5 L (11.5-15.5) g/dL Hct 28.3 L (30.0-51.3) % MCV 69.9 L (80-96) fL MCH 21.0 L (27.7-33.6) pg MCHC 30.1 L (32.2-35.4) g/dL RDW 22.2 H (11.5-15.5) % Plt Count 258 (125-369) X10(3)uL MPV 6.9 L (7.4-10.4) fL Neut % (Auto) 73.6 (46-82) % Lymph % (Auto) 13.5 (13-37) % [place] % (Auto) 9.0 (4-12) % Eos % (Auto) 3 (1.0-5.0) % Baso % (Auto) 1 (0-2) % Neut # (Auto) 5.6 (1.6-8.3) # Lymph # (Auto) 1.0 (0.6-5.0) # [place] # (Auto) 0.7 (0.0-1.3) # Eos # (Auto) 0.2 (0.0-0.8) # Baso # (Auto) 0.1 (0.0-0.2) # Sodium 139 (135-145) mmol/L Potassium 4.0 (3.5-5.3) mmol/L Chloride 103 (100-110) mmol/L Carbon Dioxide 29 (21-32) mmol/L BUN 34 H (7-18) mg/dL Creatinine 2.1 H* (0.55-1.02) mg/dL Est Cr Clr Drug Dosing 22.14 mL/min Estimated GFR (MDRD) 23 L (>60) BUN/Creatinine Ratio 16.2 (9-20) Glucose 117 H (80-116) mg/dL POC Glucose (80-116) mg/dL Calcium 8.6 (8.6-10.2) mg/dL Troponin I 17.7 (4.0-60.3) pg/mL NT-Pro-B Natriuret Pep 4418 H* (<=125) pg/mL Juan A Results Last 24 Hours: Microbiology 10/20/19 18:10 Urine Culture - Preliminary Urine, Catheterized Gram Negative Rods Med Orders - Current: Current Medications Acetaminophen (Tylenol Extra Strength) 1,000 mg PO Q6H PRN PRN Reason: Pain (moderate 4-6) Albuterol/Ipratropium (Duoneb 3.0-0.5 Mg/3 Ml) 3 ml INH Q6H PRN PRN Reason: Dyspnea Last Admin: 10/22/19 01:59 Dose: 3 ml Allopurinol (Zyloprim) 150 mg PO DAILY [facility] Last Admin: 10/21/19 09:36 Dose: 150 mg Amiodarone HCl (Cordarone) 200 mg PO DAILY [facility] Last Admin: 10/21/19 09:36 Dose: 200 mg Atorvastatin Calcium (Lipitor) 40 mg PO DAILY@1000 [facility] Last Admin: 10/21/19 09:37 Dose: 40 mg Ezetimibe (Zetia) 10 mg PO DAILY@1800 [facility] Last Admin: 10/21/19 18:03 Dose: 10 mg Fluticasone Propionate (Flonase) 0 gm JACLYN BID PRN PRN Reason: ALLERGIES Furosemide (Lasix) 40 mg IVPUSH TID [facility] Last Admin: 10/21/19 20:50 Dose: 40 mg Insulin Glargine (Lantus Solostar) 10 units SUBCUT BEDTIME [facility] Last Admin: 10/21/19 20:45 Dose: 10 unit Insulin Human Lispro (Humalog) 2 unit SUBCUT TIDMEALS [facility] Last Admin: 10/21/19 18:04 Dose: 2 units Melatonin (Melatonin) 9 mg PO BEDTIME [facility] Last Admin: 10/21/19 23:26 Dose: 9 mg Nitroglycerin (Nitrostat) 0.4 mg SL Q5M PRN PRN Reason: Chest Pain Rivaroxaban (Xarelto) 15 mg PO WITHDINNER [facility] Last Admin: 10/21/19 18:03 Dose: 15 mg Sertraline HCl (Zoloft) 50 mg PO BEDTIME [facility] Last Admin: 10/21/19 20:51 Dose: 50 mg Sodium Chloride (Saline Flush) 10 ml FLUSH ASDIRECTED PRN PRN Reason: Keep Vein Open Last Admin: 10/21/19 20:44 Dose: 10 ml Discontinued Medications Acetaminophen (Tylenol Extra Strength) 1,000 mg PO Q4H PRN PRN Reason: Pain (moderate 4-6) Fluticasone Propionate (Flonase) 0 gm JACLYN BID [facility] Last Admin: 10/21/19 09:37 Dose: Not Given Furosemide (Lasix) 40 mg IVPUSH BID [facility] Furosemide (Lasix) 40 mg IVPUSH BID [facility] Furosemide (Lasix) 40 mg IVPUSH NOW STA Stop: 10/20/19 15:35 Last Admin: 10/20/19 16:50 Dose: 40 mg Furosemide (Lasix) 40 mg IVPUSH NOW ONE Stop: 10/20/19 23:46 Last Admin: 10/21/19 00:07 Dose: 40 mg Sodium Chloride (Normal Saline) 250 mls @ 100 mls/hr IV ASDIRECTED [facility] Last Admin: 10/20/19 21:05 Dose: 100 mls/hr Insulin Glargine (Lantus Solostar) 42 units SUBCUT BEDTIME [facility] Last Admin: 10/20/19 23:48 Dose: Not Given Insulin Human Lispro (Humalog) 12 unit SUBCUT BIDMEALS [facility] Last Admin: 10/21/19 09:18 Dose: Not Given Insulin Human Lispro (Humalog) 12 unit SUBCUT BIDMEALS [facility] Losartan Potassium (Cozaar) 50 mg PO DAILY [facility] Metoprolol Succinate (Toprol Xl) 100 mg PO DAILY [facility] Non-Formulary Medication (Melatonin [Melatonin]) 10 mg PO BEDTIME [facility] Trimethoprim/Sulfamethoxazole (Septra Ds) 1 tab PO BID [facility] Stop: 10/23/19 09:00 Last Admin: 10/20/19 22:33 Dose: 1 tab - Exam Quality Assessment: Supplemental Oxygen General: Alert, Oriented HEENT: Pupils Equal Lungs: Rhonchi Cardiovascular: Irregular Rhythm, Murmurs GI/Abdominal Exam: Normal Bowel Sounds Back Exam: Normal Inspection Extremities: Pedal Edema Sepsis Event Note - Evaluation Sepsis Screening Result: No Definite Risk - Focused Exam Vital Signs: Vital Signs Temp Pulse Resp BP Pulse Ox Pulse Ox 10/22/19 02:10 71 20 111/54 L 94 L 10/22/19 02:00 74 92 L 10/22/19 00:28 95 10/21/19 23:00 98.7 F 72 18 130/72 95 Date Exam was Performed: 10/22/19 Time Exam was Performed: 08:40 - Problem List & Annotations (1) JAXSON (acute kidney injury) SNOMED Code(s): 33124189, 26557875 Code(s): N17.9 - ACUTE KIDNEY FAILURE, UNSPECIFIED Status: Acute Current Visit: Yes (2) Acute exacerbation of CHF (congestive heart failure) SNOMED Code(s): 597537579, 18371183139914 Code(s): I50.9 - HEART FAILURE, UNSPECIFIED Status: Acute Priority: High Current Visit: No Qualifiers: Heart failure type: diastolic Qualified Code(s): I50.33 - Acute on chronic diastolic (congestive) heart failure (3) Hypertension with heart disease SNOMED Code(s): 56357855 Code(s): I11.9 - HYPERTENSIVE HEART DISEASE WITHOUT HEART FAILURE Status: Acute Current Visit: No Annotation/Comment:: Admit to ICU (4) Afib SNOMED Code(s): 84767041 Code(s): I48.91 - UNSPECIFIED ATRIAL FIBRILLATION Status: Chronic Current Visit: No Qualifiers: Atrial fibrillation type: paroxysmal Qualified Code(s): I48.0 - Paroxysmal atrial fibrillation (5) Anemia SNOMED Code(s): 844081650 Code(s): D64.9 - ANEMIA, UNSPECIFIED Status: Chronic Current Visit: No Qualifiers: Anemia type: iron deficiency Annotation/Comment:: Hgb 7.3 (6) CAD, multiple vessel SNOMED Code(s): 325017537 Code(s): I25.10 - ATHSCL HEART DISEASE OF [place] CORONARY ARTERY W/O ANG PCTRS Status: Chronic Current Visit: No (7) Fibromyalgia SNOMED Code(s): 438725545 Code(s): M79.7 - FIBROMYALGIA Status: Chronic Current Visit: No Annotation/Comment:: stable (8) Insulin dependent type 2 diabetes mellitus, controlled SNOMED Code(s): 440825408 Code(s): E11.9 - TYPE 2 DIABETES MELLITUS WITHOUT COMPLICATIONS; Z79.4 - FDC (CURRENT) USE OF INSULIN Status: Chronic Current Visit: No Annotation/Comment:: (9) Morbid obesity with BMI of 40.0-44.9, adult SNOMED Code(s): 704944355, 55454956563192 Code(s): E66.01 - MORBID (SEVERE) OBESITY DUE TO EXCESS CALORIES; Z68.41 - BODY MASS INDEX (BMI) 40.0-44.9, ADULT Status: Chronic Current Visit: No (10) KHANG (obstructive sleep apnea) SNOMED Code(s): 63688930 Code(s): G47.33 - OBSTRUCTIVE SLEEP APNEA (ADULT) (PEDIATRIC) Status: Chronic Current Visit: No (11) On amiodarone therapy SNOMED Code(s): 054859134 Code(s): Z79.899 - OTHER FERMENTOLOGIST (CURRENT) DRUG THERAPY Status: Chronic Current Visit: No (12) Peripheral neuropathy SNOMED Code(s): 629105336 Code(s): G62.9 - POLYNEUROPATHY, UNSPECIFIED Status: Chronic Current Visit: No Annotation/Comment:: (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) Status: Acute Current Visit: Yes (14) Hodgkin lymphoma SNOMED Code(s): 772865795 Code(s): C81.90 - HODGKIN LYMPHOMA, UNSPECIFIED, UNSPECIFIED SITE Status: Acute Current Visit: Yes (15) UTI (urinary tract infection) SNOMED Code(s): 91178547 Code(s): N39.0 - URINARY TRACT INFECTION, SITE NOT SPECIFIED Status: Acute Current Visit: Yes Qualifiers: Urinary tract infection type: acute cystitis - Problem List Review Problem List Initiated/Reviewed/Updated: Yes - My Orders Last 24 Hours: My Active Orders 10/21/19 09:00 Echo Comp w Cont [US] Urgent Furosemide [Lasix] 40 mg IVPUSH TID 10/21/19 12:00 Insulin Lispro [HumaLOG] 2 unit SUBCUT TIDMEALS 10/21/19 18:00 Rivaroxaban [Xarelto] 15 mg PO WITHDINNER 10/21/19 21:00 Insulin Glarg,Human.Rec.Analog [LantUS Solostar] 10 units SUBCUT BEDTIME 10/22/19 08:30 Incentive Breathing [RT Incentive Spirometry] [RC] Q4HWA 10/23/19 05:11 BASIC METABOLIC PANEL,BMP [CHEM] AM CBC WITH AUTO DIFF [HEME] AM PRO B-TYPE NATRIUR PEPT,BNPPRO [CHEM] DAILY 10/24/19 05:11 BASIC METABOLIC PANEL,BMP [CHEM] AM CBC WITH AUTO DIFF [HEME] AM PRO B-TYPE NATRIUR PEPT,BNPPRO [CHEM] DAILY - Plan Plan:: ECHO reviewed. Has severe TR. Trop Neg. BNP over 4000. Urine growing E coli. Start Rocephin. Repeat labs in AM
[2019-10-22] MEDS: Insulin Lispro 100 Unit/ML 3 ML KwikPen SUBCUT SCH ×3 (09:13→18:02)
[2019-10-22] MEDS: cefTRIAXone 1 GM Vial IVPUSH SCH (09:15)
[2019-10-22] MEDS: Allopurinol 300 MG Tab PO SCH (09:15)
[2019-10-22] MEDS: Furosemide 40 MG/4 ML VIAL IVPUSH SCH ×3 (09:15→20:55)
[2019-10-22] MEDS: Amiodarone 200 MG Tab PO SCH (09:15)
[2019-10-22] MEDS: atorvaSTATin 40 MG Tab PO SCH (09:16)
[2019-10-22] MEDS: Sodium Chloride 0.9% 10 ML Syringe FLUSH PRN ×3 (09:17→20:55)
[2019-10-22] MEDS ORDERED: Hydrocortisone 1% Oint 28 GM Tube TOP PRN (11:19)
[2019-10-22] MEDS: Hydrocortisone 2.5% Crm 30 GM Tube TOP PRN (15:04)
[2019-10-22] MEDS: Ezetimibe 10 MG Tab PO SCH (18:01)
[2019-10-22] MEDS: Rivaroxaban 15 MG Tab PO SCH (18:02)
[2019-10-22] MEDS: Insulin Glargine,Human Rec. Analog 100 Units/ML 3 ML Pen SUBCUT SCH (20:48)
[2019-10-22] MEDS: Sertraline 50 MG Tab PO SCH (20:55)
[2019-10-22] MEDS: Melatonin 3 MG Tab PO SCH (23:16)
[2019-10-23] MEDS: Hydrocortisone 2.5% Crm 30 GM Tube TOP PRN (03:07)
[2019-10-23] MEDS: Acetaminophen 500 MG Tab PO PRN (05:12)
[2019-10-23] MEDS: cefTRIAXone 1 GM Vial IVPUSH SCH (08:51)
[2019-10-23] MEDS: Insulin Lispro 100 Unit/ML 3 ML KwikPen SUBCUT SCH ×3 (08:51→17:14)
[2019-10-23] MEDS: Amiodarone 200 MG Tab PO SCH (08:52)
[2019-10-23] MEDS: Allopurinol 300 MG Tab PO SCH (08:52)
[2019-10-23] MEDS: Furosemide 40 MG/4 ML VIAL IVPUSH SCH (08:53)
[2019-10-23] MEDS: atorvaSTATin 40 MG Tab PO SCH ×2 (08:53→10:23)
[2019-10-23] MEDS: Sodium Chloride 0.9% 10 ML Syringe FLUSH PRN (08:54)
--- NOTE | 2019-10-23 09:35 | PCM.PN ---
- General Info Date of Service: 10/23/19 Subjective Update: Jennifer feels much better today Denies any chest pain. She needed oxygen overnight. Denies any fever chills but has some dysuria. Functional Status: Reports: Pain Controlled - Review of Systems General: Reports: No Symptoms HEENT: Reports: No Symptoms Cardiovascular: Reports: No Symptoms Gastrointestinal: Reports: No Symptoms - Patient Data Vitals - Most Recent: Last Vital Signs Temp 97.6 F 10/23/19 08:00 Pulse 76 10/23/19 08:00 Resp 18 10/23/19 08:00 BP 119/59 L 10/23/19 08:00 Pulse Ox 92 L 10/23/19 08:00 Weight - Most Recent: 118.841 kg I&O - Last 24 Hours: Intake & Output 10/22/19 10/23/19 10/23/19 22:59 06:59 14:59 Intake Total 100 100 Output Total 1550 1000 Balance -1450 -900 Lab Results Last 24 Hours: Laboratory Results - last 24 hr 10/22/19 10/22/19 10/22/19 Range/Units 11:39 17:18 20:46 WBC (4.5-12.0) X10-3/uL RBC (3.23-5.20) x10(6)uL Hgb (11.5-15.5) g/dL Hct (30.0-51.3) % MCV (80-96) fL MCH (27.7-33.6) pg MCHC (32.2-35.4) g/dL RDW (11.5-15.5) % Plt Count (125-369) X10(3)uL MPV (7.4-10.4) fL Add Manual Diff Neutrophils % (Manual) (46-82) % Lymphocytes % (Manual) (13-37) % Monocytes % (Manual) (4-12) % Eosinophils % (Manual) (0-5) % Hypersegmented Neuts Hypochromasia Anisocytosis Microcytosis Sodium (135-145) mmol/L Potassium (3.5-5.3) mmol/L Chloride (100-110) mmol/L Carbon Dioxide (21-32) mmol/L BUN (7-18) mg/dL Creatinine (0.55-1.02) mg/dL Est Cr Clr Drug Dosing mL/min Estimated GFR (MDRD) (>60) BUN/Creatinine Ratio (9-20) Glucose (80-116) mg/dL POC Glucose 143 H 188 H 175 H (80-116) mg/dL Calcium (8.6-10.2) mg/dL NT-Pro-B Natriuret Pep (<=125) pg/mL 10/23/19 10/23/19 10/23/19 Range/Units 06:35 06:35 06:35 WBC 7.1 (4.5-12.0) X10-3/uL RBC 3.92 (3.23-5.20) x10(6)uL Hgb 8.4 L (11.5-15.5) g/dL Hct 27.6 L (30.0-51.3) % MCV 70.3 L (80-96) fL MCH 21.5 L (27.7-33.6) pg MCHC 30.6 L (32.2-35.4) g/dL RDW 23.2 H (11.5-15.5) % Plt Count 269 (125-369) X10(3)uL MPV 7.0 L (7.4-10.4) fL Add Manual Diff Yes Neutrophils % (Manual) 82 (46-82) % Lymphocytes % (Manual) 7 L (13-37) % Monocytes % (Manual) 6 (4-12) % Eosinophils % (Manual) 5 (0-5) % Hypersegmented Neuts Few Hypochromasia Few Anisocytosis Moderate H Microcytosis Moderate H Sodium 141 (135-145) mmol/L Potassium 3.8 (3.5-5.3) mmol/L Chloride 102 (100-110) mmol/L Carbon Dioxide 30 (21-32) mmol/L BUN 29 H (7-18) mg/dL Creatinine 1.6 H (0.55-1.02) mg/dL Est Cr Clr Drug Dosing 29.06 mL/min Estimated GFR (MDRD) 32 L (>60) BUN/Creatinine Ratio 18.1 (9-20) Glucose 122 H (80-116) mg/dL POC Glucose (80-116) mg/dL Calcium 8.6 (8.6-10.2) mg/dL NT-Pro-B Natriuret Pep 3369 H* (<=125) pg/mL Juan A Results Last 24 Hours: Microbiology 10/20/19 18:10 Urine Culture - Final Urine, Catheterized Escherichia Coli Med Orders - Current: Current Medications Acetaminophen (Tylenol Extra Strength) 1,000 mg PO Q6H PRN PRN Reason: Pain (moderate 4-6) Last Admin: 10/23/19 05:12 Dose: 1,000 mg Albuterol/Ipratropium (Duoneb 3.0-0.5 Mg/3 Ml) 3 ml INH Q6H PRN PRN Reason: Dyspnea Last Admin: 10/22/19 01:59 Dose: 3 ml Allopurinol (Zyloprim) 150 mg PO DAILY [facility] Last Admin: 10/23/19 08:52 Dose: 150 mg Amiodarone HCl (Cordarone) 200 mg PO DAILY [facility] Last Admin: 10/23/19 08:52 Dose: 200 mg Atorvastatin Calcium (Lipitor) 40 mg PO DAILY@1000 [facility] Last Admin: 10/23/19 08:53 Dose: 40 mg Ezetimibe (Zetia) 10 mg PO DAILY@1800 [facility] Last Admin: 10/22/19 18:01 Dose: 10 mg Fluticasone Propionate (Flonase) 0 gm JACLYN BID PRN PRN Reason: ALLERGIES Hydrocortisone (Hydrocortisone 2.5% Crm) 1 gm TOP BID PRN PRN Reason: Itching Last Admin: 10/23/19 03:07 Dose: 1 applic Insulin Glargine (Lantus Solostar) 10 units SUBCUT BEDTIME [facility] Last Admin: 10/22/19 20:48 Dose: 10 unit Insulin Human Lispro (Humalog) 2 unit SUBCUT TIDMEALS [facility] Last Admin: 10/23/19 08:51 Dose: 2 units Melatonin (Melatonin) 9 mg PO BEDTIME [facility] Last Admin: 10/22/19 23:16 Dose: 9 mg Nitroglycerin (Nitrostat) 0.4 mg SL Q5M PRN PRN Reason: Chest Pain Rivaroxaban (Xarelto) 15 mg PO WITHDINNER [facility] Last Admin: 10/22/19 18:02 Dose: 15 mg Sertraline HCl (Zoloft) 50 mg PO BEDTIME [facility] Last Admin: 10/22/19 20:55 Dose: 50 mg Sodium Chloride (Saline Flush) 10 ml FLUSH ASDIRECTED PRN PRN Reason: Keep Vein Open Last Admin: 10/23/19 08:54 Dose: 10 ml Discontinued Medications Acetaminophen (Tylenol Extra Strength) 1,000 mg PO Q4H PRN PRN Reason: Pain (moderate 4-6) Ceftriaxone Sodium (Rocephin) 1 gm IVPUSH Q24H [facility] Last Admin: 10/23/19 08:51 Dose: 1 gm Fluticasone Propionate (Flonase) 0 gm JACLYN BID [facility] Last Admin: 10/21/19 09:37 Dose: Not Given Furosemide (Lasix) 40 mg IVPUSH BID [facility] Furosemide (Lasix) 40 mg IVPUSH BID [facility] Furosemide (Lasix) 40 mg IVPUSH NOW STA Stop: 10/20/19 15:35 Last Admin: 10/20/19 16:50 Dose: 40 mg Furosemide (Lasix) 40 mg IVPUSH NOW ONE Stop: 10/20/19 23:46 Last Admin: 10/21/19 00:07 Dose: 40 mg Furosemide (Lasix) 40 mg IVPUSH TID [facility] Last Admin: 10/23/19 08:53 Dose: 40 mg Hydrocortisone (Hydrocortisone 1% Oint) 1 gm TOP BID PRN PRN Reason: Itching Sodium Chloride (Normal Saline) 250 mls @ 100 mls/hr IV ASDIRECTED [facility] Last Admin: 10/20/19 21:05 Dose: 100 mls/hr Insulin Glargine (Lantus Solostar) 42 units SUBCUT BEDTIME [facility] Last Admin: 10/20/19 23:48 Dose: Not Given Insulin Human Lispro (Humalog) 12 unit SUBCUT BIDMEALS [facility] Last Admin: 10/21/19 09:18 Dose: Not Given Insulin Human Lispro (Humalog) 12 unit SUBCUT BIDMEALS [facility] Losartan Potassium (Cozaar) 50 mg PO DAILY [facility] Metoprolol Succinate (Toprol Xl) 100 mg PO DAILY [facility] Non-Formulary Medication (Melatonin [Melatonin]) 10 mg PO BEDTIME [facility] Trimethoprim/Sulfamethoxazole (Septra Ds) 1 tab PO BID [facility] Stop: 10/23/19 09:00 Last Admin: 10/20/19 22:33 Dose: 1 tab - Exam General: Alert, Oriented HEENT: Pupils Equal Neck: Supple Lungs: Crackles Cardiovascular: Irregular Rhythm, Murmurs GI/Abdominal Exam: Normal Bowel Sounds Sepsis Event Note - Evaluation Sepsis Screening Result: No Definite Risk - Focused Exam Vital Signs: Vital Signs Temp Pulse Resp BP Pulse Ox Pulse Ox 10/23/19 08:00 97.6 F 76 18 119/59 L 92 L 10/23/19 03:18 98.1 F 85 20 137/69 92 L 10/23/19 02:00 97 10/23/19 00:00 97.9 F 74 20 124/70 98 Date Exam was Performed: 10/23/19 Time Exam was Performed: 09:32 - Problem List & Annotations (1) JAXSON (acute kidney injury) SNOMED Code(s): 69358327, 01024858 Code(s): N17.9 - ACUTE KIDNEY FAILURE, UNSPECIFIED Status: Acute Current Visit: Yes (2) Acute exacerbation of CHF (congestive heart failure) SNOMED Code(s): 416251816, 77715948054903 Code(s): I50.9 - HEART FAILURE, UNSPECIFIED Status: Acute Priority: High Current Visit: No Qualifiers: Heart failure type: diastolic Qualified Code(s): I50.33 - Acute on chronic diastolic (congestive) heart failure (3) Hypertension with heart disease SNOMED Code(s): 28148239 Code(s): I11.9 - HYPERTENSIVE HEART DISEASE WITHOUT HEART FAILURE Status: Acute Current Visit: No Annotation/Comment:: Admit to ICU (4) Afib SNOMED Code(s): 15786798 Code(s): I48.91 - UNSPECIFIED ATRIAL FIBRILLATION Status: Chronic Current Visit: No Qualifiers: Atrial fibrillation type: paroxysmal Qualified Code(s): I48.0 - Paroxysmal atrial fibrillation (5) Anemia SNOMED Code(s): 490572780 Code(s): D64.9 - ANEMIA, UNSPECIFIED Status: Chronic Current Visit: No Qualifiers: Anemia type: iron deficiency Annotation/Comment:: Hgb 7.3 (6) CAD, multiple vessel SNOMED Code(s): 351292662 Code(s): I25.10 - ATHSCL HEART DISEASE OF [place] CORONARY ARTERY W/O ANG PCTRS Status: Chronic Current Visit: No (7) Fibromyalgia SNOMED Code(s): 320205835 Code(s): M79.7 - FIBROMYALGIA Status: Chronic Current Visit: No Annotation/Comment:: stable (8) Insulin dependent type 2 diabetes mellitus, controlled SNOMED Code(s): 239109961 Code(s): E11.9 - TYPE 2 DIABETES MELLITUS WITHOUT COMPLICATIONS; Z79.4 - USP (CURRENT) USE OF INSULIN Status: Chronic Current Visit: No Annotation/Comment:: (9) Morbid obesity with BMI of 40.0-44.9, adult SNOMED Code(s): 482457275, 35284663439347 Code(s): E66.01 - MORBID (SEVERE) OBESITY DUE TO EXCESS CALORIES; Z68.41 - BODY MASS INDEX (BMI) 40.0-44.9, ADULT Status: Chronic Current Visit: No (10) KHANG (obstructive sleep apnea) SNOMED Code(s): 75124343 Code(s): G47.33 - OBSTRUCTIVE SLEEP APNEA (ADULT) (PEDIATRIC) Status: Chronic Current Visit: No (11) On amiodarone therapy SNOMED Code(s): 518308985 Code(s): Z79.899 - OTHER USP (CURRENT) DRUG THERAPY Status: Chronic Current Visit: No (12) Peripheral neuropathy SNOMED Code(s): 372858144 Code(s): G62.9 - POLYNEUROPATHY, UNSPECIFIED Status: Chronic Current Visit: No Annotation/Comment:: (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) Status: Acute Current Visit: Yes (14) Hodgkin lymphoma SNOMED Code(s): 032232003 Code(s): C81.90 - HODGKIN LYMPHOMA, UNSPECIFIED, UNSPECIFIED SITE Status: Acute Current Visit: Yes (15) UTI (urinary tract infection) SNOMED Code(s): 93010514 Code(s): N39.0 - URINARY TRACT INFECTION, SITE NOT SPECIFIED Status: Acute Current Visit: Yes Qualifiers: Urinary tract infection type: acute cystitis - Problem List Review Problem List Initiated/Reviewed/Updated: Yes - My Orders Last 24 Hours: My Active Orders 10/22/19 14:16 Hydrocortisone [Hydrocortisone 2.5% Crm] 1 gm TOP BID PRN 10/23/19 14:00 Furosemide [Lasix] 40 mg PO BIDDIURETIC cephALEXin [Keflex] 500 mg PO TID 10/24/19 05:11 BASIC METABOLIC PANEL,BMP [CHEM] AM CBC WITH AUTO DIFF [HEME] AM PRO B-TYPE NATRIUR PEPT,BNPPRO [CHEM] DAILY - Plan Plan:: Switch meds to oral. DC tele. Possible DC tomorrow.Consider C scope.Start Iron
[2019-10-23] MEDS: Ferrous Sulfate 325 MG Tab PO SCH ×2 (12:56→17:12)
[2019-10-23] MEDS ORDERED: Cephalexin 500 MG Cap PO SCH (14:00)
[2019-10-23] MEDS: Furosemide 40 MG Tab PO SCH (14:42)
[2019-10-23] MEDS: Ezetimibe 10 MG Tab PO SCH (17:14)
[2019-10-23] MEDS: Rivaroxaban 15 MG Tab PO SCH (17:14)
[2019-10-23] MEDS ORDERED: Magnesium Hydroxide 400 MG/5 ML Susp 30 ML Cup PO PRN (20:59)
[2019-10-23] MEDS: Insulin Glargine,Human Rec. Analog 100 Units/ML 3 ML Pen SUBCUT SCH (21:35)
[2019-10-23] MEDS: Sertraline 50 MG Tab PO SCH (21:35)
[2019-10-23] MEDS: Melatonin 3 MG Tab PO SCH (23:08)
[2019-10-24] MEDS: Ferrous Sulfate 325 MG Tab PO SCH ×2 (08:16→11:47)
[2019-10-24] MEDS: Furosemide 40 MG Tab PO SCH ×2 (08:17→13:13)
[2019-10-24] MEDS: Cephalexin 250 MG Cap PO SCH ×2 (08:17→13:13)
[2019-10-24] MEDS: Allopurinol 300 MG Tab PO SCH (08:17)
[2019-10-24] MEDS: Amiodarone 200 MG Tab PO SCH (08:17)
[2019-10-24] MEDS: Insulin Lispro 100 Unit/ML 3 ML KwikPen SUBCUT SCH ×2 (08:20→11:46)
[2019-10-24] MEDS: atorvaSTATin 40 MG Tab PO SCH (10:00)
[2019-10-24 11:56] VITALS: BP 135/74; PULSE 89
[2019-10-24] MEDS: Acetaminophen 500 MG Tab PO PRN (13:12)
--- NOTE | 2019-10-24 16:07 | CONS ---
DATE OF CONSULTATION: 10/24/2019 HISTORY OF PRESENT ILLNESS: This 68-year-old female was admitted approximately 3 days ago with unexplained anemia. She states that she has actually been feeling quite weak over the past 3 to 4 months. This has slowly been worsening. She resisted coming to the physician, but after encouragement, came in and was noted to have a low hemoglobin of less than 8. She did receive transfusion and her current hemoglobin has been relatively stable at 8.7. The etiology for her anemia is unclear. She denies any recent changes in bowel pattern or bowel color. She has not seen any blood in her stool and has not been having any vomiting. The patient's most recent attempt at GI evaluation was an attempted colonoscopy in 2012. This was an abandoned exam because of a poor prep. She has not had any attempted colon evaluation since then. PAST MEDICAL HISTORY: Does include prior diagnoses of leukemia and lymphoma both of which were successfully treated. She also has atrial fibrillation for which she takes Xarelto and she has congestive heart failure and diabetes for which she takes medications including insulin. She has been noted to have a high BNP while in the hospital here and has been on Lasix as well. FAMILY HISTORY: Notable for a brother who had some type of colon disease. She did not commit to stating a diagnosis of cancer, but notes this is a possibility. There is also history of other cancers in the family. REVIEW OF SYSTEMS: She has not had any symptoms suggestive of viral illness. No chest pain or palpitations. She states her appetite has been satisfactory. She notes bowel function has been stable. She generally has bowel movement every day and has not noticed any significant changes in that in the recent past. She does have some pain in one of her knees, both of these have been surgically replaced. PHYSICAL EXAMINATION: VITAL SIGNS: Temperature is 97.8, pulse 91, blood pressure is 140/78. GENERAL: The patient is alert, adult female in no acute distress. Respiratory effort is normal. She is alert and does not exhibit any indication of pain. IMPRESSION: 1. Unexplained anemia. 2. History of atrial fibrillation, on Xarelto. 3. History of diabetes. 4. Congestive heart failure. RECOMMENDATIONS: Advised EGD and colonoscopy. Discussed with the patient need for aggressive attempts at bowel prep in light of her failed prep in the past. I would suggest a very light diet 2 days prior to the procedure as well as pushing fluids during the day of the prep. Also we will have her hold her Xarelto for 2 days prior to the procedure. We discussed with the patient the risks, possible complications, and she agrees to proceed. She does have some scheduling obligations in the near future, but we will arrange this to be performed as soon as we will fit in her schedule. She indicates a desire to have this performed at the [facility] in [place] and we will arrange this. /[id number] QUENTIN/JOEY
--- NOTE | 2019-10-25 07:26 | DISCH ---
DISCHARGE DATE: 10/24/2019 CONSULTATION: Dr. Larry. ADMISSION DIAGNOSES: 1. Severe anemia. 2. Congestive heart failure exacerbation. 3. Acute kidney injury. 4. Obesity. 5. Atrial fibrillation. 6. Hypertension. 7. Fibromyalgia. 8. Type 2 diabetes. 9. Obesity. 10.Obstructive sleep apnea. 11.Peripheral neuropathy. 12.History of Hodgkin lymphoma. DISCHARGE DIAGNOSES: 1. Severe anemia. 2. Congestive heart failure exacerbation. 3. Acute kidney injury. 4. Obesity. 5. Atrial fibrillation. 6. Hypertension. 7. Fibromyalgia. 8. Type 2 diabetes. 9. Obesity. 10.Obstructive sleep apnea. 11.Peripheral neuropathy. 12.History of Hodgkin lymphoma. 13.Urinary tract infection. BRIEF HISTORY: Jennifer is a 68-year-old female admitted through the clinic because of shortness of breath. She was found to have a hemoglobin of 7.7 and had 2 units of PRBCs. Discharge hemoglobin is 8.7. Fecal occult blood test was negative. Colonoscopy in [address] was incomplete. I consulted Dr[address] Larry and the plan is in the works to do both upper and lower GI in the coming weeks. She also got IV Lasix 40 mg t.i.d. for 3 days and diuresed aggressively. Her creatinine improved markedly and discharge creatinine was 1.3. I held off antihypertensives while in the hospital, but we will restart metoprolol upon discharge. UTI was treated with Rocephin IV initially, and then, we discharged her with oral cephalexin. Overall, she has improved markedly. Her home prescriptions we will continue with the exception of losartan and Lasix will also be continued at 40 mg b.i.d. Follow up in the office with Dr. Pena next week and she is advised to return to the ED with any worsening symptoms, and I will also restart iron supplementation that she previously took, ferrous sulfate 325 mg t.i.d. with meals. Please note that I spent more than 35 minutes in the discharge of the patient. /[id number] PRISCILLA/DEBL
== END 2019-10-24 17:40 | disposition home or self-care (01) | DRG 292 ==
LOC: FB.MS 15:16
PROVIDERS: ADMIT Family Medicine; ATTEND Family Medicine
PROC: 30233N1 Transfusion of Nonautologous Red Blood Cells into Peripheral Vein, Percutaneous Approach (ICD-10-PCS; principal; 2019-10-20)
DX: I11.0 Hypertensive heart disease with heart failure (principal); N17.9 Acute kidney failure, unspecified; C95.90 Leukemia, unspecified not having achieved remission; Z68.41 Body mass index [BMI] 40.0-44.9, adult; C92.40 Acute promyelocytic leukemia, not having achieved remission; N30.00 Acute cystitis without hematuria; I50.33 Acute on chronic diastolic (congestive) heart failure; M79.7 Fibromyalgia; G47.33 Obstructive sleep apnea (adult) (pediatric); E11.42 Type 2 diabetes mellitus with diabetic polyneuropathy; I48.0 Paroxysmal atrial fibrillation; H54.7 Unspecified visual loss; D64.9 Anemia, unspecified; I25.10 Atherosclerotic heart disease of native coronary artery without angina pectoris; I42.9 Cardiomyopathy, unspecified; E78.00 Pure hypercholesterolemia, unspecified; G89.29 Other chronic pain; M54.9 Dorsalgia, unspecified; M10.9 Gout, unspecified; M19.041 Primary osteoarthritis, right hand; M19.042 Primary osteoarthritis, left hand; M17.0 Bilateral primary osteoarthritis of knee; E03.9 Hypothyroidism, unspecified; I71.2 Thoracic aortic aneurysm, without rupture; Z96.653 Presence of artificial knee joint, bilateral; E78.5 Hyperlipidemia, unspecified; E66.01 Morbid (severe) obesity due to excess calories; J44.9 Chronic obstructive pulmonary disease, unspecified; Z91.09 Other allergy status, other than to drugs and biological substances; Z91.040 Latex allergy status; I25.2 Old myocardial infarction; Z95.5 Presence of coronary angioplasty implant and graft; Z88.5 Allergy status to narcotic agent; Z88.0 Allergy status to penicillin; Z79.01 Long term (current) use of anticoagulants; Z90.89 Acquired absence of other organs; Z98.42 Cataract extraction status, left eye; Z79.4 Long term (current) use of insulin; Z79.899 Other long term (current) drug therapy; Z20.828 Contact with and (suspected) exposure to other viral communicable diseases
CPT/HCPCS: 36415; 36430; 51702; 71045; 80048; 81001; 82270; 82962; 83880; 84484; 85025; 86850; 86900; 86901; 86920; 86922; 87086; 87088; 87186; 94150; 94640; 94760; A9270-GY; C8929; J0696; J1815; J1815-GY; J1940; J7050; J7620-GY; P9016; U0002

== ENCOUNTER 2020-01-02 06:47 | Day surgery (SDC) | payer MEDICARE, MEDICAID ==
[~2020-01-02 06:47] MED LIST: Sodium Chloride 0.9% 10 ML Syringe FLUSH PRN
[2020-01-02] MEDS ORDERED: Propofol 200 MG/20 ML SDV IV ONE (06:48)
[2020-01-02] MEDS ORDERED: Lidocaine 2% 5 ML SDV IV ONE (06:48)
[2020-01-02] MEDS: Lactated Ringers 1,000 ML IV SCH (07:55)
--- NOTE | 2020-01-02 09:03 | PCM.OPNOTE ---
- General Post-Op/Procedure Note Date of Surgery/Procedure: 01/02/20 Operative Procedure(s): egd with biopsy. colonoscopy with biopsy Findings: diffuse gastritis ascending colon polyp x5 rectal polyp Pre Op Diagnosis: hx of Fe def anemia Post-Op Diagnosis: diffuse gastritis. ascending colon polyp x5. rectal polyp [place] [facility] [place]geon: Wesley Mays Anesthesia Provider: Jeremiah Schmidt Pathology: diffuse gastritis ascending colon polyp x5 rectal polyp Complications: None Condition: Good Free Text/Narrative:: see dictation
--- NOTE | 2020-01-02 09:55 | PREOP ---
ADMISSION DATE: 01/02/2020 CHIEF COMPLAINT: Iron deficiency anemia. HISTORY OF PRESENT ILLNESS: This is a 69-year-old white female referred with a history of iron deficiency anemia, did require a 2-unit transfusion about a month ago. She has absolutely no GI symptoms, is due for a followup colonoscopy, but had apparently been lost to followup. She has no family history of any GI issues such as colon cancer, colon polyps. She denies any black or bloody stools or intraabdominal pain. She presents now for an upper and lower endoscopy. PAST MEDICAL HISTORY: Significant for history of amiodarone therapy, Hodgkin disease, arthritis, hyperlipidemia, hypertension, depression, morbid obesity, coronary artery disease, osteoarthritis, posttraumatic osteoarthritis of the right knee, she is status post a stent placement, she had seborrheic capitis, copd, chf, aortic stenosis and she has type 2 diabetes. MEDICATIONS: 1. Levemir 42 units at bedtime. 2. DuoNeb 2.5-0.5/3 mL 1 unit every 6 hours. 3. Albuterol high-frequency inhaler 1 to 2 puffs every 4 to 6 hours as needed for shortness of breath. 4. Nitroglycerin 0.4 mg sublingual tablet as needed, repeat in 5 minutes x3. 5. Melatonin 5 mg 1 time per day. 6. Flonase 27.5 mcg nasal spray each nostril as needed. 7. Multivitamin 1 per day. 8. Vitamin D3 1000 units capsule 1 per day. PAST SURGICAL HISTORY: Significant for cholangiogram, cardioversion, tonsillectomy, total knee bilaterally. SOCIAL HISTORY: The patient is a former smoker. Has an occasional drink. FAMILY HISTORY: Significant for stroke, hypertension, diabetes, and heart failure. REVIEW OF SYSTEMS: The patient denies any HEENT issues. She does have shortness of breath due to her chronic obstructive pulmonary disease. Denies any recent chest pain. Denies any GI issues or neurologic issues. PHYSICAL EXAMINATION: GENERAL: This is a well-developed, well-nourished white female, appearing in no acute distress. HEENT: Grossly within normal limits. LUNGS: Clear to auscultation. HEART: Had a regular rate and rhythm. ABDOMEN: Soft, nontender. ASSESSMENT: Iron deficiency anemia due to chronic blood loss. PLAN: Esophagogastroduodenoscopy and colonoscopy. Procedure and risks were explained to the patient to include bleeding, perforation, and infection. The patient expresses understanding and she asked us to proceed. She is also COVID negative in her testing. /[id number] PRANEETH/JOEY LEIGH
[2020-01-02 10:02] VITALS: BP 158/84; PULSE 79
--- NOTE | 2020-01-02 11:31 | OR ---
DATE OF OPERATION: 01/02/2020 SURGEON: Wesley Mays MD PROCEDURE PERFORMED: Colonoscopy with hot loop snare and cold forceps biopsy as well as upper endoscopy with cold forceps biopsy. PREOPERATIVE DIAGNOSIS: History of iron deficiency anemia. POSTOPERATIVE DIAGNOSES: Gastritis and colon polyps x5 of the ascending colon and a rectal polyp x1. INDICATIONS FOR PROCEDURE: This is a 69-year-old white female who suffered some anemia recently, had to have a 2-unit transfusion. She was offered and accepted an upper endoscopy as well as colonoscopy as part of a workup for possible etiology of her blood loss. She is asymptomatic with regard to her gastrointestinal tract, but is due for a followup colonoscopy due to history of polyps. DESCRIPTION OF OPERATION: After an excellent IV sedation was administered, the bite block was inserted. Flexible endoscope was passed without difficulty down to the patient's esophagus into the stomach. Stomach was insufflated, scope passed through the pylorus to the second portion of the duodenum and slowly withdrawn. Following findings were noted. The duodenum was unremarkable. Stomach demonstrated some diffuse gastritis. Several biopsies were taken. GE junction measured at 40 cm. The esophagus was essentially unremarkable. Stomach was deflated and scope was removed. Our attention was then turned to the colon. Digital rectal exam was performed. No marked abnormality was noted. Flexible colonoscope was inserted and advanced without difficulty to the patient's cecum. Prep was excellent. The following findings were noted. In the ascending colon, there were a total of 5 polyps located primarily just distal to the cecum. These were biopsied with a combination of cold forceps and hot loop snare. The cold forceps were used when we could not get a purchase with the loop snare. These were all submitted in 1 container. They varied in size from 1 cm to 0.5 cm in size and were submitted in 1 container. Transverse colon was unremarkable. Descending colon was unremarkable. Sigmoid was unremarkable. In the rectum, small pedunculated polyp, biopsied with the hot loop snare and submitted in a separate container. The patient tolerated the procedure well, was taken to recovery room. Results will be sent by letter. /[id number] /MODL
== END 2020-01-02 10:15 | disposition home or self-care (01) ==
LOC: FB.SDS 06:47
PROVIDERS: ATTEND Surgery
DX: D12.2 Benign neoplasm of ascending colon (principal); D12.8 Benign neoplasm of rectum; K29.50 Unspecified chronic gastritis without bleeding; B96.81 Helicobacter pylori [H. pylori] as the cause of diseases classified elsewhere; E78.5 Hyperlipidemia, unspecified; F32.9 Major depressive disorder, single episode, unspecified; E66.01 Morbid (severe) obesity due to excess calories; I25.10 Atherosclerotic heart disease of native coronary artery without angina pectoris; D50.0 Iron deficiency anemia secondary to blood loss (chronic); M17.31 Unilateral post-traumatic osteoarthritis, right knee; E11.22 Type 2 diabetes mellitus with diabetic chronic kidney disease; I13.0 Hypertensive heart and chronic kidney disease with heart failure and stage 1 through stage 4 chronic kidney disease, or unspecified chronic kidney disease; N18.2 Chronic kidney disease, stage 2 (mild); I50.9 Heart failure, unspecified; J44.9 Chronic obstructive pulmonary disease, unspecified; C81.90 Hodgkin lymphoma, unspecified, unspecified site; G47.33 Obstructive sleep apnea (adult) (pediatric); Z95.5 Presence of coronary angioplasty implant and graft; Z87.891 Personal history of nicotine dependence; Z79.899 Other long term (current) drug therapy; Z68.41 Body mass index [BMI] 40.0-44.9, adult
CPT/HCPCS: 00813-QZ; 82962; 88305; 88342; J2001; J2704; J7120

== ENCOUNTER 2022-12-05 11:58 | Inpatient (IN) | payer MEDICARE, MEDICAID ==
[2022-12-05] MEDS ORDERED: Albuterol 8 GM Inhaler INH PRN (15:28)
[2022-12-05] MEDS ORDERED: Nitroglycerin 0.4 MG Tab.SL SL PRN (15:28)
[2022-12-05] MEDS ORDERED: Albuterol/Ipratropium 3.0-0.5 MG/3 ML Neb Soln INH PRN (15:28)
[2022-12-05] MEDS ORDERED: Acetaminophen 325 MG Tab PO PRN (15:28)
[2022-12-05] MEDS ORDERED: Glucagon,Human Recombinant 1 MG Vial IM PRN (15:35)
[2022-12-05] MEDS ORDERED: 50% Dextrose in Water 50 ML Syringe IVPUSH PRN (15:35)
[2022-12-05] MEDS: Pantoprazole 40 MG Tab.CR PO SCH (16:57)
[2022-12-05] MEDS ORDERED: Ibuprofen 200 MG Tab PO SCH (17:00)
[2022-12-05] MEDS ORDERED: Acetaminophen 500 MG Tab PO SCH (17:00)
[2022-12-05] MEDS: metFORMIN 1,000 MG Tab PO SCH (17:04)
[2022-12-05] MEDS: Rivaroxaban 10 MG Tab PO SCH (17:06)
[2022-12-05] MEDS ORDERED: Insulin Lispro 100 Unit/ML 3 ML KwikPen SUBCUT ONE (17:08)
[2022-12-05] MEDS: Insulin Lispro 100 Unit/ML 3 ML KwikPen SUBCUT SCH (17:10)
[2022-12-05] MEDS: Melatonin 3 MG Tab PO SCH (20:44)
[2022-12-05] MEDS: Nystatin Topical Powder 15 GM Bottle TOP SCH (20:47)
[2022-12-05] MEDS ORDERED: Insulin Glargine,Human Rec. Analog 100 Units/ML 3 ML Pen SUBCUT ONE (22:22)
[2022-12-05] MEDS: Insulin Glargine,Human Rec. Analog 100 Units/ML 3 ML Pen SUBCUT SCH (22:25)
[2022-12-06] MEDS: Acetaminophen 325 MG Tab PO PRN ×2 (00:55→22:42)
[2022-12-06] MEDS: Pantoprazole 40 MG Tab.CR PO SCH ×2 (07:00→17:20)
[2022-12-06] MEDS: Insulin Lispro 100 Unit/ML 3 ML KwikPen SUBCUT SCH ×3 (08:21→17:22)
[2022-12-06] MEDS: Metoprolol Succinate 100 MG Tab.ER PO SCH (08:56)
[2022-12-06] MEDS: Cholecalciferol (Vitamin D3) 25 MCG Tab PO SCH (08:56)
[2022-12-06] MEDS: Allopurinol 300 MG Tab PO SCH (08:56)
[2022-12-06] MEDS: atorvaSTATin 40 MG Tab PO SCH (08:57)
[2022-12-06] MEDS: Ferrous Sulfate 325 MG Tab PO SCH (08:57)
[2022-12-06] MEDS: Folic Acid 0.4 MG Tab PO SCH (08:57)
[2022-12-06] MEDS: Multivitamins with Iron/Calcium/Folic Acid/Minerals Tab PO SCH (08:58)
[2022-12-06] MEDS: Losartan 50 MG Tab PO SCH (08:58)
[2022-12-06] MEDS: Nystatin Topical Powder 15 GM Bottle TOP SCH ×2 (08:58→21:44)
[2022-12-06] MEDS: Ezetimibe 10 MG Tab PO SCH (08:58)
[2022-12-06] MEDS: metFORMIN 1,000 MG Tab PO SCH ×2 (08:59→17:19)
[2022-12-06] MEDS: Tiotropium BR/Olodaterol HCL 4 GM Inhalation Spray 2.5mcg/1 dose; 10 doses INH SCH (08:59)
[2022-12-06] MEDS: Sertraline 50 MG Tab PO SCH (09:00)
[2022-12-06] MEDS: Rivaroxaban 10 MG Tab PO SCH (17:22)
[2022-12-06] MEDS: Melatonin 3 MG Tab PO SCH (21:45)
[2022-12-06] MEDS: Insulin Glargine,Human Rec. Analog 100 Units/ML 3 ML Pen SUBCUT SCH (21:57)
[2022-12-07] MEDS: Acetaminophen 325 MG Tab PO PRN ×2 (06:21→21:56)
[2022-12-07] MEDS: Pantoprazole 40 MG Tab.CR PO SCH ×2 (06:34→18:35)
[2022-12-07] MEDS: Insulin Lispro 100 Unit/ML 3 ML KwikPen SUBCUT SCH ×3 (09:08→18:36)
[2022-12-07] MEDS: metFORMIN 1,000 MG Tab PO SCH ×2 (09:09→18:36)
[2022-12-07] MEDS: Cholecalciferol (Vitamin D3) 25 MCG Tab PO SCH (09:15)
[2022-12-07] MEDS: Tiotropium BR/Olodaterol HCL 4 GM Inhalation Spray 2.5mcg/1 dose; 10 doses INH SCH (09:15)
[2022-12-07] MEDS: Multivitamins with Iron/Calcium/Folic Acid/Minerals Tab PO SCH (09:15)
[2022-12-07] MEDS: atorvaSTATin 40 MG Tab PO SCH (09:15)
[2022-12-07] MEDS: Ferrous Sulfate 325 MG Tab PO SCH (09:15)
[2022-12-07] MEDS: Folic Acid 0.4 MG Tab PO SCH (09:15)
[2022-12-07] MEDS: Nystatin Topical Powder 15 GM Bottle TOP SCH ×2 (09:16→21:46)
[2022-12-07] MEDS: Allopurinol 300 MG Tab PO SCH (09:16)
[2022-12-07] MEDS: Ezetimibe 10 MG Tab PO SCH (09:17)
[2022-12-07] MEDS: Sertraline 50 MG Tab PO SCH (09:17)
[2022-12-07] MEDS: Metoprolol Succinate 100 MG Tab.ER PO SCH (09:26)
[2022-12-07] MEDS: Losartan 50 MG Tab PO SCH (09:26)
[2022-12-07] MEDS: Rivaroxaban 10 MG Tab PO SCH (18:36)
[2022-12-07] MEDS: Melatonin 3 MG Tab PO SCH (21:46)
[2022-12-07] MEDS: Insulin Glargine,Human Rec. Analog 100 Units/ML 3 ML Pen SUBCUT SCH (21:48)
[2022-12-08] MEDS: Acetaminophen 325 MG Tab PO PRN ×2 (06:12→22:52)
[2022-12-08] MEDS: Pantoprazole 40 MG Tab.CR PO SCH ×2 (06:33→17:20)
[2022-12-08] MEDS: Insulin Lispro 100 Unit/ML 3 ML KwikPen SUBCUT SCH ×3 (09:23→18:13)
[2022-12-08] MEDS: metFORMIN 1,000 MG Tab PO SCH ×2 (09:25→18:11)
[2022-12-08] MEDS: Losartan 50 MG Tab PO SCH (09:26)
[2022-12-08] MEDS: atorvaSTATin 40 MG Tab PO SCH (09:26)
[2022-12-08] MEDS: Folic Acid 0.4 MG Tab PO SCH (09:26)
[2022-12-08] MEDS: Ferrous Sulfate 325 MG Tab PO SCH (09:26)
[2022-12-08] MEDS: Multivitamins with Iron/Calcium/Folic Acid/Minerals Tab PO SCH (09:27)
[2022-12-08] MEDS: Tiotropium BR/Olodaterol HCL 4 GM Inhalation Spray 2.5mcg/1 dose; 10 doses INH SCH (09:27)
[2022-12-08] MEDS: Nystatin Topical Powder 15 GM Bottle TOP SCH ×2 (09:27→21:07)
[2022-12-08] MEDS: Metoprolol Succinate 100 MG Tab.ER PO SCH (09:27)
[2022-12-08] MEDS: Allopurinol 300 MG Tab PO SCH (09:28)
[2022-12-08] MEDS: Cholecalciferol (Vitamin D3) 25 MCG Tab PO SCH (09:28)
[2022-12-08] MEDS: Ezetimibe 10 MG Tab PO SCH (09:28)
[2022-12-08] MEDS: Sertraline 50 MG Tab PO SCH ×2 (15:10→21:07)
[2022-12-08] MEDS: Rivaroxaban 10 MG Tab PO SCH (18:11)
[2022-12-08] MEDS: Melatonin 3 MG Tab PO SCH (21:07)
[2022-12-08] MEDS: Insulin Glargine,Human Rec. Analog 100 Units/ML 3 ML Pen SUBCUT SCH (21:13)
[2022-12-09] MEDS: Pantoprazole 40 MG Tab.CR PO SCH ×2 (06:51→17:15)
[2022-12-09] MEDS: Insulin Lispro 100 Unit/ML 3 ML KwikPen SUBCUT SCH ×3 (08:25→17:16)
[2022-12-09] MEDS: metFORMIN 1,000 MG Tab PO SCH ×2 (08:26→17:14)
[2022-12-09] MEDS: Losartan 50 MG Tab PO SCH (08:31)
[2022-12-09] MEDS: Ferrous Sulfate 325 MG Tab PO SCH (08:31)
[2022-12-09] MEDS: Folic Acid 0.4 MG Tab PO SCH (08:32)
[2022-12-09] MEDS: Nystatin Topical Powder 15 GM Bottle TOP SCH ×2 (08:32→21:50)
[2022-12-09] MEDS: atorvaSTATin 40 MG Tab PO SCH (08:32)
[2022-12-09] MEDS: Tiotropium BR/Olodaterol HCL 4 GM Inhalation Spray 2.5mcg/1 dose; 10 doses INH SCH (08:33)
[2022-12-09] MEDS: Multivitamins with Iron/Calcium/Folic Acid/Minerals Tab PO SCH (08:35)
[2022-12-09] MEDS: Metoprolol Succinate 100 MG Tab.ER PO SCH (08:36)
[2022-12-09] MEDS: Ezetimibe 10 MG Tab PO SCH (08:36)
[2022-12-09] MEDS: Allopurinol 300 MG Tab PO SCH (08:37)
[2022-12-09] MEDS: Cholecalciferol (Vitamin D3) 25 MCG Tab PO SCH (08:37)
[2022-12-09] MEDS: Rivaroxaban 10 MG Tab PO SCH (17:19)
[2022-12-09] MEDS: Sertraline 50 MG Tab PO SCH (21:50)
[2022-12-09] MEDS: Melatonin 3 MG Tab PO SCH (21:50)
[2022-12-09] MEDS: Insulin Glargine,Human Rec. Analog 100 Units/ML 3 ML Pen SUBCUT SCH (21:51)
[2022-12-09] MEDS: Acetaminophen 325 MG Tab PO PRN (22:16)
[2022-12-10] MEDS: Pantoprazole 40 MG Tab.CR PO SCH ×2 (06:30→18:03)
[2022-12-10] MEDS: metFORMIN 1,000 MG Tab PO SCH ×2 (09:03→18:04)
[2022-12-10] MEDS: Insulin Lispro 100 Unit/ML 3 ML KwikPen SUBCUT SCH ×3 (09:04→18:04)
[2022-12-10] MEDS: Losartan 50 MG Tab PO SCH (09:05)
[2022-12-10] MEDS: Nystatin Topical Powder 15 GM Bottle TOP SCH ×2 (09:06→21:18)
[2022-12-10] MEDS: Folic Acid 0.4 MG Tab PO SCH (09:06)
[2022-12-10] MEDS: Ferrous Sulfate 325 MG Tab PO SCH (09:06)
[2022-12-10] MEDS: atorvaSTATin 40 MG Tab PO SCH (09:06)
[2022-12-10] MEDS: Multivitamins with Iron/Calcium/Folic Acid/Minerals Tab PO SCH (09:07)
[2022-12-10] MEDS: Metoprolol Succinate 100 MG Tab.ER PO SCH (09:07)
[2022-12-10] MEDS: Tiotropium BR/Olodaterol HCL 4 GM Inhalation Spray 2.5mcg/1 dose; 10 doses INH SCH (09:07)
[2022-12-10] MEDS: Cholecalciferol (Vitamin D3) 25 MCG Tab PO SCH (09:08)
[2022-12-10] MEDS: Allopurinol 300 MG Tab PO SCH (09:08)
[2022-12-10] MEDS: Ezetimibe 10 MG Tab PO SCH (09:08)
[2022-12-10] MEDS: Rivaroxaban 10 MG Tab PO SCH (18:05)
[2022-12-10] MEDS ORDERED: Insulin Glargine,Human Rec. Analog 100 Units/ML 3 ML Pen SUBCUT SCH (21:00)
[2022-12-10] MEDS: Sertraline 50 MG Tab PO SCH (21:20)
[2022-12-10] MEDS: Melatonin 3 MG Tab PO SCH (21:20)
[2022-12-10] MEDS: Acetaminophen 325 MG Tab PO PRN (23:42)
[2022-12-11] MEDS: Pantoprazole 40 MG Tab.CR PO SCH ×2 (07:01→17:28)
[2022-12-11] MEDS: Insulin Lispro 100 Unit/ML 3 ML KwikPen SUBCUT SCH ×3 (08:49→17:26)
[2022-12-11] MEDS: metFORMIN 1,000 MG Tab PO SCH ×2 (08:50→17:28)
[2022-12-11] MEDS: Losartan 50 MG Tab PO SCH (08:52)
[2022-12-11] MEDS: Nystatin Topical Powder 15 GM Bottle TOP SCH ×2 (08:53→20:25)
[2022-12-11] MEDS: Ferrous Sulfate 325 MG Tab PO SCH (08:53)
[2022-12-11] MEDS: Folic Acid 0.4 MG Tab PO SCH (08:53)
[2022-12-11] MEDS: atorvaSTATin 40 MG Tab PO SCH (08:53)
[2022-12-11] MEDS: Tiotropium BR/Olodaterol HCL 4 GM Inhalation Spray 2.5mcg/1 dose; 10 doses INH SCH (08:54)
[2022-12-11] MEDS: Metoprolol Succinate 100 MG Tab.ER PO SCH (08:54)
[2022-12-11] MEDS: Multivitamins with Iron/Calcium/Folic Acid/Minerals Tab PO SCH (08:54)
[2022-12-11] MEDS: Cholecalciferol (Vitamin D3) 25 MCG Tab PO SCH (08:55)
[2022-12-11] MEDS: Ezetimibe 10 MG Tab PO SCH (08:55)
[2022-12-11] MEDS: Allopurinol 300 MG Tab PO SCH (08:56)
[2022-12-11] MEDS: Furosemide 80 MG Tab PO SCH (13:06)
[2022-12-11] MEDS: Rivaroxaban 10 MG Tab PO SCH (17:27)
[2022-12-11] MEDS: Melatonin 3 MG Tab PO SCH (20:26)
[2022-12-11] MEDS: Sertraline 50 MG Tab PO SCH (20:26)
[2022-12-11] MEDS ORDERED: Insulin Glargine,Human Rec. Analog 100 Units/ML 3 ML Pen SUBCUT SCH (21:00)
[2022-12-11] MEDS: Acetaminophen 325 MG Tab PO PRN (23:00)
[2022-12-12] MEDS: Pantoprazole 40 MG Tab.CR PO SCH (06:32)
[2022-12-12] MEDS: Insulin Lispro 100 Unit/ML 3 ML KwikPen SUBCUT SCH (07:27)
[2022-12-12 07:31] VITALS: BP 140/69; PULSE 92
[2022-12-12] MEDS: metFORMIN 1,000 MG Tab PO SCH (08:08)
[2022-12-12] MEDS: Losartan 50 MG Tab PO SCH (08:09)
[2022-12-12] MEDS: Folic Acid 0.4 MG Tab PO SCH (08:10)
[2022-12-12] MEDS: Ferrous Sulfate 325 MG Tab PO SCH (08:10)
[2022-12-12] MEDS: Furosemide 80 MG Tab PO SCH (08:10)
[2022-12-12] MEDS: atorvaSTATin 40 MG Tab PO SCH (08:11)
[2022-12-12] MEDS: Nystatin Topical Powder 15 GM Bottle TOP SCH (08:11)
[2022-12-12] MEDS: Tiotropium BR/Olodaterol HCL 4 GM Inhalation Spray 2.5mcg/1 dose; 10 doses INH SCH (08:11)
[2022-12-12] MEDS: Ezetimibe 10 MG Tab PO SCH (08:12)
[2022-12-12] MEDS: Multivitamins with Iron/Calcium/Folic Acid/Minerals Tab PO SCH (08:12)
[2022-12-12] MEDS: Metoprolol Succinate 100 MG Tab.ER PO SCH (08:12)
[2022-12-12] MEDS: Cholecalciferol (Vitamin D3) 25 MCG Tab PO SCH (08:12)
[2022-12-12] MEDS: Allopurinol 300 MG Tab PO SCH (08:12)
== END 2022-12-12 10:24 | disposition home or self-care (01) | DRG 948 ==
LOC: FB.MS 15:00
PROVIDERS: ADMIT Student in an Organized Health Care Education/Training Program; ATTEND Family Medicine
DX: R53.1 Weakness (principal); I48.11 Longstanding persistent atrial fibrillation; I25.10 Atherosclerotic heart disease of native coronary artery without angina pectoris; E78.00 Pure hypercholesterolemia, unspecified; I35.0 Nonrheumatic aortic (valve) stenosis; E66.9 Obesity, unspecified; E11.40 Type 2 diabetes mellitus with diabetic neuropathy, unspecified; E03.9 Hypothyroidism, unspecified; F32.A Depression, unspecified; D50.9 Iron deficiency anemia, unspecified; D52.8 Other folate deficiency anemias; J44.9 Chronic obstructive pulmonary disease, unspecified; Z79.01 Long term (current) use of anticoagulants; Z88.0 Allergy status to penicillin; Z88.5 Allergy status to narcotic agent; Z88.8 Allergy status to other drugs, medicaments and biological substances; Z91.040 Latex allergy status; Z88.6 Allergy status to analgesic agent; Z79.84 Long term (current) use of oral hypoglycemic drugs; Z79.4 Long term (current) use of insulin; Z79.899 Other long term (current) drug therapy; I25.2 Old myocardial infarction; Z90.49 Acquired absence of other specified parts of digestive tract; Z98.49 Cataract extraction status, unspecified eye; Z95.5 Presence of coronary angioplasty implant and graft; Z98.890 Other specified postprocedural states; Z96.659 Presence of unspecified artificial knee joint; Z87.891 Personal history of nicotine dependence; Z99.81 Dependence on supplemental oxygen; Z74.09 Other reduced mobility; I10 Essential (primary) hypertension
CPT/HCPCS: 82947; 97110-GO; 97116-GP; 97161-GP; 97165-GO; 97530-GO; 97530-GP; 97535-GO; 99305; 99315; A9270-GY; J1815; J1815-GY

== ENCOUNTER 2023-02-12 14:27 | Emergency (ER) | payer MEDICARE, MEDICAID ==
[2023-02-12] MEDS ORDERED: Sodium Chloride 0.9% 10 ML Syringe FLUSH PRN (14:39)
[2023-02-12 15:22] LABS: BLOOD UREA NITROGEN,BUN 19 mg/dL (7-18); BUN/CREATININE RATIO 15.8 (9-20); CALCIUM 9.2 mg/dL (8.6-10.2); CARBON DIOXIDE,CO2 26 mmol/L (21-32); CHLORIDE,CL 100 mmol/L (100-110); CREATININE 1.2 mg/dL (0.55-1.02); ESTIMATED GFR 48 mL/min (>60); GLUCOSE RANDOM 154 mg/dL (80-116); POTASSIUM,K 3.5 mmol/L (3.5-5.3); SODIUM,NA 137 mmol/L (135-145)
[2023-02-12 15:26] LABS: BASOPHILS PERCENT AUTO 0.7 % (0.2-1.5); EOSINOPHILS ABSOLUTE AUTO 0.1 x10-3/uL (0.0-0.8); EOSINOPHILS PERCENT AUTO 1.6 % (0.6-8.1); HEMATOCRIT 28.2 % (34.2-48.2); HEMOGLOBIN 8.5 g/dL (11.4-15.5); LYMPHOCYTES ABSOLUTE AUTO 0.8 x10-3/uL (1.0-4.4); LYMPHOCYTES PERCENT AUTO 12.3 % (18.4-52.1); MEAN CORPUSCULAR HEMOGLOBIN 24.3 pg (23.9-33.9); MEAN CORPUSCULAR HGB CONC 30.2 g/dL (31.9-34.8); MEAN CORPUSCULAR VOLUME 80.3 fL (76.7-100.5); MEAN PLATELET VOLUME 7.5 fL (7.1-12.4); MONOCYTES ABSOLUTE AUTO 0.5 x10-3/uL (0.3-1.0); MONOCYTES PERCENT AUTO 8.2 % (4.4-15.7); NEUTROPHILS PERCENT AUTO 77.2 % (30.8-76.2); PLATELET COUNT,PLT 357 x10(3)uL (151-488); RED CELL DISTRIBUTION WIDTH 17.8 % (12.3-16.5); WHITE BLOOD CELL COUNT,WBC 6.5 x10-3/uL (3.0-10.3)
[2023-02-12 15:27] LABS: A/G RATIO 0.9; ALANINE AMINOTRANSFERASE,ALT 14 U/L (12-36); ALBUMIN 3.4 g/dL (3.2-4.6); ALKALINE PHOSPHATASE 107 IU/L (56-112); ASPARTATE AMNIOTRANSFERASE,AST 14 IU/L (5-25); BILIRUBIN TOTAL 0.4 mg/dL (0.1-1.3); PROTEIN TOTAL,TP 7.3 g/dL (6.0-8.0)
[2023-02-12 18:17] VITALS: BP 131/67; PULSE 90
== END 2023-02-12 18:02 | disposition home or self-care (01) ==
LOC: FB.ED 14:27
DX: I48.91 Unspecified atrial fibrillation (principal); I25.10 Atherosclerotic heart disease of native coronary artery without angina pectoris; I11.0 Hypertensive heart disease with heart failure; I50.9 Heart failure, unspecified; E78.00 Pure hypercholesterolemia, unspecified; I25.2 Old myocardial infarction; E11.40 Type 2 diabetes mellitus with diabetic neuropathy, unspecified; E03.9 Hypothyroidism, unspecified; E66.9 Obesity, unspecified; Z68.30 Body mass index [BMI] 30.0-30.9, adult; Z91.040 Latex allergy status; Z91.048 Other nonmedicinal substance allergy status; Z88.6 Allergy status to analgesic agent; Z88.0 Allergy status to penicillin; Z88.8 Allergy status to other drugs, medicaments and biological substances; Z88.5 Allergy status to narcotic agent; Z79.4 Long term (current) use of insulin; Z79.84 Long term (current) use of oral hypoglycemic drugs; Z79.899 Other long term (current) drug therapy; Z79.01 Long term (current) use of anticoagulants
CPT/HCPCS: 36415; 80053; 84484; 85025; 93005; 99285

== ENCOUNTER 2023-04-20 16:04 | Observation (INO) | payer MEDICAID, MEDICARE ==
[2023-04-20 17:11] LABS: HEMATOCRIT 22.9 % (34.2-48.2); MEAN CORPUSCULAR HEMOGLOBIN 22.3 pg (23.9-33.9); MEAN CORPUSCULAR VOLUME 76.7 fL (76.7-100.5); MEAN PLATELET VOLUME 7.2 fL (7.1-12.4); PLATELET COUNT,PLT 394 x10(3)uL (151-488); RED BLOOD CELL COUNT 2.98 x10(6)uL (3.60-5.20); RED CELL DISTRIBUTION WIDTH 16.8 % (12.3-16.5); WHITE BLOOD CELL COUNT,WBC 15.3 x10-3/uL (3.0-10.3)
[2023-04-20 17:16] LABS: HEMOGLOBIN 6.6 g/dL (11.4-15.5)
[2023-04-20 17:17] LABS: BLOOD UREA NITROGEN,BUN 18 mg/dL (7-18); CARBON DIOXIDE,CO2 28 mmol/L (21-32); CHLORIDE,CL 102 mmol/L (100-110); CREATININE 1.2 mg/dL (0.55-1.02); ESTIMATED GFR 48 mL/min (>60); GLUCOSE RANDOM 184 mg/dL (80-116); POTASSIUM,K 4.6 mmol/L (3.5-5.3); SODIUM,NA 138 mmol/L (135-145)
[2023-04-20 17:22] LABS: A/G RATIO 0.7; ALANINE AMINOTRANSFERASE,ALT 19 U/L (12-36); ALBUMIN 2.9 g/dL (3.2-4.6); ALKALINE PHOSPHATASE 113 IU/L (56-112); ASPARTATE AMNIOTRANSFERASE,AST 23 IU/L (5-25); BILIRUBIN TOTAL 0.6 mg/dL (0.1-1.3); PROTEIN TOTAL,TP 7.1 g/dL (6.0-8.0)
[2023-04-20 17:23] LABS: INR 1.22 (1.00-1.24); PROTHROMBIN TIME 12.5 sec (9.0-11.1)
[2023-04-20 17:26] LABS: LACTIC ACID 1.6 mmol/L (0.4-2.0)
[2023-04-20 17:29] LABS: TROPONIN I 14.7 pg/mL (4.0-60.3)
[2023-04-20] MEDS ORDERED: Metoprolol Tartrate 5 MG/5 ML SDV IVPUSH ONE ×2 (17:35→18:23)
[2023-04-20] MEDS ORDERED: Metoprolol Tartrate 50 MG Tab PO ONE (17:36)
[2023-04-20 17:56] LABS: BAND PERCENT MAN 3 % (0-6); LYMPHOCYTES PERCENT MAN 11 % (13-37); MONOCYTES PERCENT MAN 6 % (4-12); SEG NEUTROPHILS PERCENT MAN 80 % (46-82)
[2023-04-20] MEDS: Sodium Chloride 0.9% 10 ML Syringe FLUSH PRN ×3 (18:14→22:31)
[2023-04-20 18:24] LABS: INFLUENZA A NAA NEGATIVE (NEGATIVE); INFLUENZA B NAA NEGATIVE (NEGATIVE)
[2023-04-20 18:29] LABS: CORONAVIRUS COVID-19 NAA NEGATIVE (NEGATIVE)
[2023-04-20] MEDS ORDERED: Sennosides/Docusate Sodium 50-8.6 MG Tab PO PRN (21:35)
[2023-04-20] MEDS ORDERED: Acetaminophen 325 MG Tab PO PRN ×2 (21:35→21:42)
[2023-04-20] MEDS ORDERED: Ondansetron 4 MG/2 ML SDV IV PRN (21:35)
[2023-04-20] MEDS ORDERED: Nitroglycerin 0.4 MG Tab.SL SL PRN (21:42)
[2023-04-20] MEDS ORDERED: Albuterol/Ipratropium 3.0-0.5 MG/3 ML Neb Soln INH PRN (21:42)
[2023-04-20] MEDS ORDERED: Albuterol 8 GM Inhaler INH PRN (21:42)
[2023-04-20] MEDS ORDERED: Pantoprazole 40 MG Vial IVPUSH ONE (21:48)
[2023-04-20] MEDS ORDERED: Furosemide 20 MG/2 ML VIAL IVPUSH ONE (21:50)
[2023-04-20 22:47] LABS: BILIRUBIN,URINE NEGATIVE (NEGATIVE); GLUCOSE,URINE >1000 mg/dL (NORMAL); KETONES,URINE NEGATIVE (NEGATIVE); LEUKOCYTE ESTERASE,URINE NEGATIVE (NEGATIVE); NITRITE,URINE NEGATIVE (NEGATIVE); OCCULT BLOOD,URINE NEGATIVE (NEGATIVE); PROTEIN,URINE NEGATIVE (NEGATIVE); UROBILINOGEN,URINE 1 mg/dL (NEGATIVE)
[2023-04-20 22:55] LABS: APPEARANCE,URINE CLEAR (CLEAR); BACTERIA,URINE FEW (NS); COLOR,URINE YELLOW (YELLOW); RBC,URINE 0-5 (0-5); SQUAMOUS EPITHELIAL CELLS,UR FEW (NS,R,O); WBC,URINE 0-5 (0-5); YEAST,URINE OCCASIONAL (NS)
[2023-04-21 06:00] LABS: BASOPHILS ABSOLUTE AUTO 0.1 x10-3/uL (0.0-0.1); BASOPHILS PERCENT AUTO 0.5 % (0.2-1.5); EOSINOPHILS ABSOLUTE AUTO 0.1 x10-3/uL (0.0-0.8); HEMATOCRIT 25.8 % (34.2-48.2); HEMOGLOBIN 7.9 g/dL (11.4-15.5); LYMPHOCYTES ABSOLUTE AUTO 1.3 x10-3/uL (1.0-4.4); LYMPHOCYTES PERCENT AUTO 12.9 % (18.4-52.1); MEAN CORPUSCULAR HEMOGLOBIN 23.6 pg (23.9-33.9); MEAN CORPUSCULAR HGB CONC 30.4 g/dL (31.9-34.8); MEAN CORPUSCULAR VOLUME 77.6 fL (76.7-100.5); MEAN PLATELET VOLUME 6.9 fL (7.1-12.4); MONOCYTES PERCENT AUTO 9.5 % (4.4-15.7); NEUTROPHILS ABSOLUTE AUTO 7.7 x10-3/uL (1.5-6.3); NEUTROPHILS PERCENT AUTO 76.1 % (30.8-76.2); PLATELET COUNT,PLT 329 x10(3)uL (151-488); RED BLOOD CELL COUNT 3.33 x10(6)uL (3.60-5.20); RED CELL DISTRIBUTION WIDTH 16.8 % (12.3-16.5); WHITE BLOOD CELL COUNT,WBC 10.1 x10-3/uL (3.0-10.3)
[2023-04-21 06:10] LABS: A/G RATIO 0.6; ALANINE AMINOTRANSFERASE,ALT 24 U/L (12-36); ALBUMIN 2.5 g/dL (3.2-4.6); ALKALINE PHOSPHATASE 96 IU/L (56-112); ASPARTATE AMNIOTRANSFERASE,AST 26 IU/L (5-25); BILIRUBIN TOTAL 0.5 mg/dL (0.1-1.3); BLOOD UREA NITROGEN,BUN 19 mg/dL (7-18); CALCIUM 8.5 mg/dL (8.6-10.2); CARBON DIOXIDE,CO2 29 mmol/L (21-32); CHLORIDE,CL 102 mmol/L (100-110); EST CRCL DRUG DOSING (CG) 49.45 mL/min; ESTIMATED GFR 60 mL/min (>60); GLUCOSE RANDOM 124 mg/dL (80-116); POTASSIUM,K 3.9 mmol/L (3.5-5.3); PROTEIN TOTAL,TP 6.5 g/dL (6.0-8.0); SODIUM,NA 134 mmol/L (135-145)
[2023-04-21 06:13] LABS: HEMOGLOBIN A1C 5.8 % (<5.7)
[2023-04-21] MEDS ORDERED: Tiotropium BR/Olodaterol HCL 4 GM Inhalation Spray 2.5mcg/1 dose; 10 doses INH SCH (09:00)
[2023-04-21] MEDS: Ezetimibe 10 MG Tab PO SCH (09:07)
[2023-04-21] MEDS: Ferrous Sulfate 325 MG Tab PO SCH (09:07)
[2023-04-21] MEDS: Allopurinol 300 MG Tab PO SCH (09:07)
[2023-04-21] MEDS: Furosemide 80 MG Tab PO SCH (09:08)
[2023-04-21] MEDS: Pantoprazole 40 MG Tab.CR PO SCH ×2 (09:08→17:59)
[2023-04-21] MEDS: Cholecalciferol (Vitamin D3) 25 MCG Tab PO SCH (09:08)
[2023-04-21] MEDS: Multivitamin Tab PO SCH (09:08)
[2023-04-21] MEDS: Folic Acid 0.4 MG Tab PO SCH (09:08)
[2023-04-21] MEDS: metFORMIN 1,000 MG Tab PO SCH ×2 (09:08→17:59)
[2023-04-21] MEDS ORDERED: Sodium Chloride 0.9% 250 ML IV SCH (09:15)
[2023-04-21] MEDS: Sodium Chloride 0.9% 10 ML Syringe FLUSH PRN (15:40)
[2023-04-21] MEDS ORDERED: Rivaroxaban 10 MG Tab PO SCH (18:00)
[2023-04-21] MEDS ORDERED: Sertraline 50 MG Tab PO SCH (21:00)
[2023-04-21] MEDS ORDERED: Melatonin 3 MG Tab PO SCH (21:00)
[2023-04-21] MEDS ORDERED: atorvaSTATin 40 MG Tab PO SCH (21:00)
[2023-04-21] MEDS ORDERED: Acetaminophen/Diphenhydramine 500-25 MG Tab PO SCH (21:00)
[2023-04-22] MEDS: Pantoprazole 40 MG Tab.CR PO SCH (06:48)
[2023-04-22 07:23] LABS: BASOPHILS ABSOLUTE AUTO 0.1 x10-3/uL (0.0-0.1); BASOPHILS PERCENT AUTO 0.9 % (0.2-1.5); EOSINOPHILS ABSOLUTE AUTO 0.2 x10-3/uL (0.0-0.8); EOSINOPHILS PERCENT AUTO 2.8 % (0.6-8.1); HEMATOCRIT 31.4 % (34.2-48.2); HEMOGLOBIN 9.6 g/dL (11.4-15.5); LYMPHOCYTES ABSOLUTE AUTO 1.2 x10-3/uL (1.0-4.4); LYMPHOCYTES PERCENT AUTO 15.7 % (18.4-52.1); MEAN CORPUSCULAR HGB CONC 30.6 g/dL (31.9-34.8); MEAN CORPUSCULAR VOLUME 78.4 fL (76.7-100.5); MEAN PLATELET VOLUME 6.9 fL (7.1-12.4); MONOCYTES ABSOLUTE AUTO 0.7 x10-3/uL (0.3-1.0); MONOCYTES PERCENT AUTO 9.3 % (4.4-15.7); NEUTROPHILS ABSOLUTE AUTO 5.3 x10-3/uL (1.5-6.3); NEUTROPHILS PERCENT AUTO 71.3 % (30.8-76.2); PLATELET COUNT,PLT 340 x10(3)uL (151-488); RED BLOOD CELL COUNT 4.01 x10(6)uL (3.60-5.20); RED CELL DISTRIBUTION WIDTH 16.5 % (12.3-16.5); WHITE BLOOD CELL COUNT,WBC 7.4 x10-3/uL (3.0-10.3)
[2023-04-22 07:32] LABS: A/G RATIO 0.6; ALANINE AMINOTRANSFERASE,ALT 29 U/L (12-36); ALBUMIN 2.6 g/dL (3.2-4.6); ALKALINE PHOSPHATASE 101 IU/L (56-112); ASPARTATE AMNIOTRANSFERASE,AST 32 IU/L (5-25); BILIRUBIN TOTAL 0.7 mg/dL (0.1-1.3); BLOOD UREA NITROGEN,BUN 16 mg/dL (7-18); CALCIUM 8.8 mg/dL (8.6-10.2); CARBON DIOXIDE,CO2 32 mmol/L (21-32); CHLORIDE,CL 102 mmol/L (100-110); EST CRCL DRUG DOSING (CG) 49.45 mL/min; ESTIMATED GFR 60 mL/min (>60); GLUCOSE RANDOM 130 mg/dL (80-116); POTASSIUM,K 3.8 mmol/L (3.5-5.3); PROTEIN TOTAL,TP 6.9 g/dL (6.0-8.0); SODIUM,NA 139 mmol/L (135-145)
[2023-04-22] MEDS: Folic Acid 0.4 MG Tab PO SCH (08:26)
[2023-04-22] MEDS: Ferrous Sulfate 325 MG Tab PO SCH (08:26)
[2023-04-22] MEDS: metFORMIN 1,000 MG Tab PO SCH (08:26)
[2023-04-22] MEDS: Cholecalciferol (Vitamin D3) 25 MCG Tab PO SCH (08:26)
[2023-04-22] MEDS: Furosemide 80 MG Tab PO SCH (08:27)
[2023-04-22] MEDS: Ezetimibe 10 MG Tab PO SCH (08:27)
[2023-04-22] MEDS: Multivitamin Tab PO SCH (08:27)
[2023-04-22] MEDS: Allopurinol 300 MG Tab PO SCH (08:28)
[2023-04-22 08:31] VITALS: BP 142/71; PULSE 97
[2023-04-22] MEDS ORDERED: Empagliflozin 10 MG Tab PO SCH (09:00)
== END 2023-04-22 13:20 | disposition home or self-care (01) ==
LOC: FB.ED 16:04 → FB.MS 21:45 → UNDOADMOB 22:03 → FB.MS 22:03
PROVIDERS: ADMIT Emergency Medicine; ATTEND Family Medicine
DX: D50.8 Other iron deficiency anemias (principal); I35.0 Nonrheumatic aortic (valve) stenosis; I48.0 Paroxysmal atrial fibrillation; I11.0 Hypertensive heart disease with heart failure; I50.32 Chronic diastolic (congestive) heart failure; I25.10 Atherosclerotic heart disease of native coronary artery without angina pectoris; J44.9 Chronic obstructive pulmonary disease, unspecified; F41.9 Anxiety disorder, unspecified; F32.A Depression, unspecified; E03.9 Hypothyroidism, unspecified; G47.33 Obstructive sleep apnea (adult) (pediatric); E11.69 Type 2 diabetes mellitus with other specified complication; E66.01 Morbid (severe) obesity due to excess calories; Z68.41 Body mass index [BMI] 40.0-44.9, adult; Z20.822 Contact with and (suspected) exposure to COVID-19; Z95.2 Presence of prosthetic heart valve; Z79.4 Long term (current) use of insulin; Z85.71 Personal history of Hodgkin lymphoma; Z85.6 Personal history of leukemia; Z79.84 Long term (current) use of oral hypoglycemic drugs; Z79.01 Long term (current) use of anticoagulants; Z79.899 Other long term (current) drug therapy
CPT/HCPCS: 0240U; 36415; 36430; 71045; 80053; 81001; 82272; 83036; 83605; 83735; 83880; 84484; 85025; 85610; 85730; 86140; 86850; 86900; 86901; 86920; 86922; 93005; 93010; 96374; 96375; 96376; 99222; 99239; 99285; 99285-25; A9270-GY; C9113; G0378; J1940; J3490; J7050; P9016

== ENCOUNTER 2023-07-18 07:53 | Emergency (ER) | payer MEDICARE, MEDICAID ==
[2023-07-18] MEDS: methylPREDNISolone Sodium Succinate 125 MG/2 ML SDV IVPUSH ONE (08:24)
[2023-07-18] MEDS: Albuterol/Ipratropium 3.0-0.5 MG/3 ML Neb Soln NEB ONE (08:25)
[2023-07-18 08:27] LABS: MEAN CORPUSCULAR HEMOGLOBIN 25.9 pg (23.9-33.9); MEAN CORPUSCULAR HGB CONC 32.6 g/dL (31.9-34.8); MEAN CORPUSCULAR VOLUME 79.5 fL (76.7-100.5); MEAN PLATELET VOLUME 7.3 fL (7.1-12.4); PLATELET COUNT,PLT 250 x10(3)uL (151-488); RED BLOOD CELL COUNT 2.51 x10(6)uL (3.60-5.20); RED CELL DISTRIBUTION WIDTH 18.3 % (12.3-16.5); WHITE BLOOD CELL COUNT,WBC 11.8 x10-3/uL (3.0-10.3)
[2023-07-18] MEDS: Sodium Chloride 0.9% 10 ML Syringe FLUSH PRN (08:32)
[2023-07-18 08:35] LABS: BLOOD UREA NITROGEN,BUN 26 mg/dL (7-18); BUN/CREATININE RATIO 18.6 (9-20); CALCIUM 8.9 mg/dL (8.6-10.2); CARBON DIOXIDE,CO2 24 mmol/L (21-32); CHLORIDE,CL 101 mmol/L (100-110); CREATININE 1.4 mg/dL (0.55-1.02); ESTIMATED GFR 40 mL/min (>60); GLUCOSE RANDOM 182 mg/dL (80-116); POTASSIUM,K 3.8 mmol/L (3.5-5.3); SODIUM,NA 139 mmol/L (135-145)
[2023-07-18 08:39] LABS: HEMATOCRIT 19.9 % (34.2-48.2); HEMOGLOBIN 6.5 g/dL (11.4-15.5)
[2023-07-18 08:41] LABS: A/G RATIO 0.9; ALANINE AMINOTRANSFERASE,ALT 16 U/L (12-36); ALBUMIN 3.1 g/dL (3.2-4.6); ALKALINE PHOSPHATASE 129 IU/L (56-112); ASPARTATE AMNIOTRANSFERASE,AST 14 IU/L (5-25); BILIRUBIN TOTAL 0.8 mg/dL (0.1-1.3); PROTEIN TOTAL,TP 6.6 g/dL (6.0-8.0)
[2023-07-18 08:45] LABS: BASE EXCESS VENOUS,POC -2 mmol/L (-2 - 3+); PCO2 VENOUS,POC 33 mmHg (41-51); PH VENOUS,POC 7.44 pH Units (7.32-7.43)
[2023-07-18 08:50] LABS: INR 1.49 (1.00-1.24); PTT,PARTIAL THROMBOPLSTIN TIME 33.3 SECONDS (24.4-33.2)
[2023-07-18 08:52] LABS: LACTIC ACID 2.2 mmol/L (0.4-2.0)
[2023-07-18 09:05] LABS: ANISOCYTOSIS MODERATE; BAND PERCENT MAN 1 % (0-6); LYMPHOCYTES PERCENT MAN 5 % (13-37); MONOCYTES PERCENT MAN 4 % (4-12); SEG NEUTROPHILS PERCENT MAN 90 % (46-82)
[2023-07-18 09:43] LABS: INFLUENZA A NAA NEGATIVE (NEGATIVE); INFLUENZA B NAA NEGATIVE (NEGATIVE)
[2023-07-18 09:46] LABS: CORONAVIRUS COVID-19 NAA NEGATIVE (NEGATIVE)
[2023-07-18] MEDS: Acetaminophen 500 MG Tab PO ONE (10:39)
[2023-07-18] MEDS: Sodium Chloride 0.9% 250 ML IV SCH (10:57)
[2023-07-18 18:25] VITALS: BP 120/62; PULSE 106
== END 2023-07-18 12:10 ==
LOC: FB.ED 07:53
DX: I11.0 Hypertensive heart disease with heart failure (principal); I50.32 Chronic diastolic (congestive) heart failure; J81.0 Acute pulmonary edema; G47.33 Obstructive sleep apnea (adult) (pediatric); I48.0 Paroxysmal atrial fibrillation; J42 Unspecified chronic bronchitis; D50.8 Other iron deficiency anemias; Z95.2 Presence of prosthetic heart valve; E11.40 Type 2 diabetes mellitus with diabetic neuropathy, unspecified; Z79.01 Long term (current) use of anticoagulants; E78.00 Pure hypercholesterolemia, unspecified; Z79.84 Long term (current) use of oral hypoglycemic drugs; Z79.899 Other long term (current) drug therapy; Z88.5 Allergy status to narcotic agent; Z88.0 Allergy status to penicillin; Z91.048 Other nonmedicinal substance allergy status; Z88.8 Allergy status to other drugs, medicaments and biological substances; Z91.040 Latex allergy status
CPT/HCPCS: 0240U; 36415; 36430; 71045; 80053; 83605; 83735; 83880; 84484; 85025; 85610; 85730; 86140; 86850; 86900; 86901; 86920; 86922; 93005; 94640; 96374; 99285-25; A9270-GY; J2930; J3490; J7050; J7620; P9016

== ENCOUNTER 2023-08-21 14:57 | Inpatient (IN) | payer MEDICARE, MEDICAID ==
[2023-08-21] MEDS ORDERED: Nitroglycerin 0.4 MG Tab.SL SL PRN (18:30)
[2023-08-21] MEDS ORDERED: Albuterol/Ipratropium 3.0-0.5 MG/3 ML Neb Soln INH PRN (18:30)
[2023-08-21] MEDS ORDERED: Ondansetron 4 MG Tab.DIS PO PRN (18:30)
[2023-08-21] MEDS ORDERED: Albuterol 6.7 GM Inhaler INH PRN (18:30)
[2023-08-21] MEDS: metFORMIN 1,000 MG Tab PO SCH (19:46)
[2023-08-21] MEDS: Melatonin 3 MG Tab PO SCH (20:52)
[2023-08-21] MEDS: Acetaminophen 325 MG Tab PO PRN (20:56)
[2023-08-22] MEDS: Pantoprazole 40 MG Tab.CR PO SCH (06:08)
[2023-08-22] MEDS: Spironolactone 25 MG Tab PO SCH (08:24)
[2023-08-22] MEDS: Folic Acid 0.4 MG Tab PO SCH (08:25)
[2023-08-22] MEDS: Empagliflozin 10 MG Tab PO SCH (08:25)
[2023-08-22] MEDS: Losartan 25 MG Tab PO SCH (08:25)
[2023-08-22] MEDS: Ferrous Sulfate 325 MG Tab PO SCH (08:25)
[2023-08-22] MEDS: Furosemide 40 MG Tab PO SCH (08:26)
[2023-08-22] MEDS: Clopidogrel 75 MG Tab PO SCH (08:26)
[2023-08-22] MEDS: atorvaSTATin 40 MG Tab PO SCH (08:26)
[2023-08-22] MEDS: Polyethylene Glycol 3350 Powder 17 GM Packet PO SCH (08:26)
[2023-08-22] MEDS: Metoprolol Succinate 100 MG Tab.ER PO SCH (08:27)
[2023-08-22] MEDS: Multivitamins with Iron/Calcium/Folic Acid/Minerals Tab PO SCH (08:27)
[2023-08-22] MEDS: Ezetimibe 10 MG Tab PO SCH (08:28)
[2023-08-22] MEDS: Sertraline 50 MG Tab PO SCH (08:28)
[2023-08-22] MEDS: Allopurinol 300 MG Tab PO SCH (08:28)
[2023-08-26 13:28] VITALS: BP 136/59; PULSE 89
== END 2023-08-26 12:55 | disposition home health service (06) | DRG 947 ==
LOC: FB.MS 17:41
PROVIDERS: ADMIT Internal Medicine; ATTEND Internal Medicine
DX: R53.1 Weakness (principal); I50.21 Acute systolic (congestive) heart failure; I48.21 Permanent atrial fibrillation; I42.8 Other cardiomyopathies; E66.9 Obesity, unspecified; I25.10 Atherosclerotic heart disease of native coronary artery without angina pectoris; I11.0 Hypertensive heart disease with heart failure; E11.42 Type 2 diabetes mellitus with diabetic polyneuropathy; E78.5 Hyperlipidemia, unspecified; F41.9 Anxiety disorder, unspecified; G47.33 Obstructive sleep apnea (adult) (pediatric); I35.0 Nonrheumatic aortic (valve) stenosis; I27.20 Pulmonary hypertension, unspecified; D63.8 Anemia in other chronic diseases classified elsewhere; J44.9 Chronic obstructive pulmonary disease, unspecified; M54.9 Dorsalgia, unspecified; G89.29 Other chronic pain; M19.90 Unspecified osteoarthritis, unspecified site; M10.9 Gout, unspecified; F32.A Depression, unspecified; Z96.659 Presence of unspecified artificial knee joint; R53.81 Other malaise; D50.8 Other iron deficiency anemias; Z95.5 Presence of coronary angioplasty implant and graft; Z95.2 Presence of prosthetic heart valve; Z98.890 Other specified postprocedural states; Z85.038 Personal history of other malignant neoplasm of large intestine; Z68.32 Body mass index [BMI] 32.0-32.9, adult; Z88.8 Allergy status to other drugs, medicaments and biological substances; Z88.0 Allergy status to penicillin; Z88.5 Allergy status to narcotic agent; Z91.048 Other nonmedicinal substance allergy status; Z79.84 Long term (current) use of oral hypoglycemic drugs; Z79.51 Long term (current) use of inhaled steroids; Z79.899 Other long term (current) drug therapy; Z79.02 Long term (current) use of antithrombotics/antiplatelets; Z90.89 Acquired absence of other organs; Z98.49 Cataract extraction status, unspecified eye; Z87.891 Personal history of nicotine dependence
CPT/HCPCS: 82947; 97165-GO; 97530-GO; 99305; 99315; A9270-GY

== ENCOUNTER 2023-10-09 15:34 | Emergency (ER) | payer MEDICARE, MEDICAID ==
[2023-10-09] MEDS ORDERED: Sodium Chloride 0.9% 10 ML Syringe FLUSH PRN (16:19)
[2023-10-09 16:49] LABS: BASE EXCESS VENOUS,POC -6 mmol/L (-2 - 3+); PCO2 VENOUS,POC 37 mmHg (41-51); PH VENOUS,POC 7.33 pH Units (7.32-7.43)
[2023-10-09 16:50] LABS: BASOPHILS PERCENT AUTO 0.7 % (0.2-1.5); EOSINOPHILS ABSOLUTE AUTO 0.2 x10-3/uL (0.0-0.8); HEMATOCRIT 27.7 % (34.2-48.2); HEMOGLOBIN 8.6 g/dL (11.4-15.5); LYMPHOCYTES ABSOLUTE AUTO 0.7 x10-3/uL (1.0-4.4); LYMPHOCYTES PERCENT AUTO 11.2 % (18.4-52.1); MEAN CORPUSCULAR HEMOGLOBIN 25.5 pg (23.9-33.9); MEAN CORPUSCULAR HGB CONC 30.9 g/dL (31.9-34.8); MEAN CORPUSCULAR VOLUME 82.6 fL (76.7-100.5); MEAN PLATELET VOLUME 8.3 fL (7.1-12.4); MONOCYTES ABSOLUTE AUTO 0.5 x10-3/uL (0.3-1.0); MONOCYTES PERCENT AUTO 7.1 % (4.4-15.7); NEUTROPHILS ABSOLUTE AUTO 5.2 x10-3/uL (1.5-6.3); PLATELET COUNT,PLT 295 x10(3)uL (151-488); RED BLOOD CELL COUNT 3.35 x10(6)uL (3.60-5.20); RED CELL DISTRIBUTION WIDTH 19.4 % (12.3-16.5); WHITE BLOOD CELL COUNT,WBC 6.6 x10-3/uL (3.0-10.3)
[2023-10-09 16:58] LABS: BLOOD UREA NITROGEN,BUN 48 mg/dL (7-18); BUN/CREATININE RATIO 28.2 (9-20); CALCIUM 8.8 mg/dL (8.6-10.2); CARBON DIOXIDE,CO2 22 mmol/L (21-32); CHLORIDE,CL 105 mmol/L (100-110); CREATININE 1.7 mg/dL (0.55-1.02); ESTIMATED GFR 32 mL/min (>60); GLUCOSE RANDOM 152 mg/dL (80-116); POTASSIUM,K 5.5 mmol/L (3.5-5.3); SODIUM,NA 139 mmol/L (135-145)
[2023-10-09 17:04] LABS: A/G RATIO 0.8; ALANINE AMINOTRANSFERASE,ALT 45 U/L (12-36); ALBUMIN 3.3 g/dL (3.2-4.6); ALKALINE PHOSPHATASE 275 IU/L (56-112); ASPARTATE AMNIOTRANSFERASE,AST 21 IU/L (5-25); BILIRUBIN TOTAL 0.5 mg/dL (0.1-1.3); MAGNESIUM 2.8 mg/dL (1.8-2.5); PROTEIN TOTAL,TP 7.6 g/dL (6.0-8.0)
[2023-10-09 17:13] LABS: TROPONIN I 13.8 pg/mL (4.0-60.3)
[2023-10-09] MEDS: Sodium Chloride 0.9% 500 ML IV ONE (19:07)
[2023-10-09] MEDS: Sodium Chloride 0.9% 1,000 ML IV STA (19:41)
[2023-10-09 19:56] VITALS: BP 131/71; PULSE 36
== END 2023-10-09 20:33 ==
LOC: FB.ED 15:34
DX: I48.11 Longstanding persistent atrial fibrillation (principal); K92.2 Gastrointestinal hemorrhage, unspecified; E86.0 Dehydration; N17.9 Acute kidney failure, unspecified; Z79.51 Long term (current) use of inhaled steroids; Z79.899 Other long term (current) drug therapy; Z79.84 Long term (current) use of oral hypoglycemic drugs; I11.0 Hypertensive heart disease with heart failure; I50.9 Heart failure, unspecified; I25.10 Atherosclerotic heart disease of native coronary artery without angina pectoris; I25.2 Old myocardial infarction; J44.9 Chronic obstructive pulmonary disease, unspecified; Z95.5 Presence of coronary angioplasty implant and graft; E11.40 Type 2 diabetes mellitus with diabetic neuropathy, unspecified; Z91.048 Other nonmedicinal substance allergy status; Z88.8 Allergy status to other drugs, medicaments and biological substances; Z88.5 Allergy status to narcotic agent; Z88.0 Allergy status to penicillin; Z88.6 Allergy status to analgesic agent; Z91.040 Latex allergy status
CPT/HCPCS: 36415; 71045; 80053; 83735; 83880; 84484; 85025; 86140; 93005; 96360; 96361; 99285; J7030; J7040

== ENCOUNTER 2024-04-05 21:33 | Emergency (ER) | payer MEDICARE, MEDICAID ==
[2024-04-05 21:43] VITALS: BP 162/72; PULSE 83
[2024-04-05] MEDS: Ondansetron 4 MG Tab.DIS PO PRN (21:59)
[2024-04-05 22:12] LABS: BLOOD UREA NITROGEN,BUN 85 mg/dL (7-18); BUN/CREATININE RATIO 12.1 (9-20); CALCIUM 8.9 mg/dL (8.6-10.2); CARBON DIOXIDE,CO2 15 mmol/L (21-32); CHLORIDE,CL 91 mmol/L (100-110); ESTIMATED GFR 6 mL/min (>60); GLUCOSE RANDOM 151 mg/dL (80-116); MEAN CORPUSCULAR HEMOGLOBIN 26.5 pg (23.9-33.9); SODIUM,NA 132 mmol/L (135-145)
[2024-04-05 22:13] LABS: HEMATOCRIT 38.2 % (34.2-48.2); HEMOGLOBIN 12.2 g/dL (11.4-15.5); MEAN CORPUSCULAR HGB CONC 31.8 g/dL (31.9-34.8); MEAN CORPUSCULAR VOLUME 83.4 fL (76.7-100.5); MEAN PLATELET VOLUME 8.7 fL (7.1-12.4); PLATELET COUNT,PLT 278 x10(3)uL (151-488); RED BLOOD CELL COUNT 4.59 x10(6)uL (3.60-5.20); RED CELL DISTRIBUTION WIDTH 20.9 % (12.3-16.5); WHITE BLOOD CELL COUNT,WBC 10.5 x10-3/uL (3.0-10.3)
[2024-04-05 22:14] LABS: POTASSIUM,K 6.8 mmol/L (3.5-5.3)
[2024-04-05] MEDS ORDERED: Sodium Chloride 0.9% 10 ML Syringe FLUSH PRN (22:24)
[2024-04-05 22:25] LABS: ANISOCYTOSIS MODERATE; BAND PERCENT MAN 1 % (0-6); LYMPHOCYTES PERCENT MAN 6 % (13-37); MONOCYTES PERCENT MAN 6 % (4-12); SEG NEUTROPHILS PERCENT MAN 87 % (46-82)
[2024-04-05] MEDS ORDERED: 50% Dextrose in Water 50 ML Syringe IVPUSH PRN (22:26)
[2024-04-05] MEDS ORDERED: Glucagon,Human Recombinant 1 MG Vial IM PRN (22:26)
[2024-04-05] MEDS: Sodium Chloride 0.9% 1,000 ML IV SCH (22:35)
[2024-04-05] MEDS: Insulin Lispro 100 Unit/ML 3 ML KwikPen SUBCUT STA (22:42)
[2024-04-05] MEDS: Calcium Gluconate 10% 1 GM/10 ML SDV IVPUSH ONE (22:44)
[2024-04-05 22:49] LABS: A/G RATIO 0.8; ALANINE AMINOTRANSFERASE,ALT 27 U/L (12-36); ALBUMIN 3.8 g/dL (3.2-4.6); ALKALINE PHOSPHATASE 261 IU/L (56-112); ASPARTATE AMNIOTRANSFERASE,AST 20 IU/L (5-25); BILIRUBIN TOTAL 0.7 mg/dL (0.1-1.3); PROTEIN TOTAL,TP 8.3 g/dL (6.0-8.0)
[2024-04-05 22:55] LABS: TROPONIN I 70.8 pg/mL (4.0-60.3)
[2024-04-05] MEDS: 50% Dextrose in Water 50 ML Syringe IVPUSH STA (23:25)
[2024-04-05 23:29] LABS: LACTIC ACID 4.8 mmol/L (0.4-2.0)
[2024-04-05] MEDS ORDERED: Sodium Bicarbonate 8.4% 50 MEQ/50 ML Syringe IVPUSH ONE (23:37)
== END 2024-04-05 23:37 ==
LOC: FB.ED 21:33
DX: I13.0 Hypertensive heart and chronic kidney disease with heart failure and stage 1 through stage 4 chronic kidney disease, or unspecified chronic kidney disease (principal); N18.9 Chronic kidney disease, unspecified; I50.32 Chronic diastolic (congestive) heart failure; N17.9 Acute kidney failure, unspecified; E87.5 Hyperkalemia; E86.0 Dehydration; I25.2 Old myocardial infarction; J44.9 Chronic obstructive pulmonary disease, unspecified; E11.22 Type 2 diabetes mellitus with diabetic chronic kidney disease; Z79.899 Other long term (current) drug therapy; Z79.84 Long term (current) use of oral hypoglycemic drugs; Z88.8 Allergy status to other drugs, medicaments and biological substances; Z88.5 Allergy status to narcotic agent; Z88.2 Allergy status to sulfonamides; Z91.040 Latex allergy status; Z91.048 Other nonmedicinal substance allergy status
CPT/HCPCS: 36415; 80053; 82947; 83605; 83735; 83880; 84484; 85025; 93005; 93010; 96361; 96374; 96375; 99285; 99285-25; J0612; J1815; J7030; Q0162